=== PATIENT | female | born 2000 | race Caucasian/White ===

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

== ENCOUNTER → 2019-07-12 | Outpatient (REF) | payer OTHER ==
[~2019-07-12] MED LIST changes: +CIPR-249 PO; +CULT10CA2 PO; +FERR1TAB8 PO; +FLAG500T PO; -GASTROGRAFIN SOLUTION 30ML (Q9963) As Ordered; +IBUP200C25 PO; -ISOVUE-370 76% 100ML VIAL (Q9967) As Ordered; +OXYC1TAB23 PO; +PRED10TA2 PO; +PRED20TA PO; +PRED50TA PO; +TYLE325T5 PO; +VANC1CAP6 PO; +ZOFR4TAB14 PO
[2019-07-12 13:14] LABS: HEMATOCRIT 39.1 % (36.0-47.0); HEMOGLOBIN 12.5 g/dl (12.0-15.5); MEAN CORPUSCULAR HEMOGLOBIN 27.6 pg (27.0-33.0); MEAN CORPUSCULAR VOLUME 86.3 fl (80.0-96.0); PLATELET COUNT, AUTOMATED 357 10^3/uL (150-450); RED BLOOD COUNT 4.53 10^6/uL (4.00-5.40); WHITE BLOOD COUNT 9.6 10^3/uL (4.0-10.0)
[2019-07-12 14:34] LABS: HEPATITIS B SURFACE ANTIGEN NEGATIVE (NEGATIVE); HEPATITIS C VIRUS ABY INDEX 0.1 INDEX (<0.8); HIV 1&2 SCREEN CENTAUR NEGATIVE (NEGATIVE); RUBELLA IgG QUALITATIVE IMMUNE (IMMUNE)
[2019-07-12 14:50] LABS: CHLAMYDIA DNA AMPLIFICATION NEGATIVE (NEGATIVE); GC DNA AMPLIFICATION NEGATIVE (NEGATIVE)
== END ==
LOC: M PLALAB 11:36
PROVIDERS: ATTEND Specialist
DX: Z34.02 Encounter for supervision of normal first pregnancy, second trimester (principal)

== ENCOUNTER 2019-08-07 15:13 | Emergency (ER) | payer OTHER ==
[~2019-08-07] VITALS: Ht 157.5 cm; Wt 43.6 kg
[2019-08-07] MEDS ORDERED: AZAT50TA2 (15:20)
[2019-08-07] MEDS ORDERED: D 202000 (15:20)
[2019-08-07] MEDS ORDERED: PENT500C (15:20)
[2019-08-07] MEDS ORDERED: NS 1,000 ML IV ONE (16:00)
[2019-08-07 16:40] LABS: BASO % 0.2 % (0.0-1.0); EOS # 0.1 10^3/uL (0.0-0.5); EOS % 0.7 % (0.0-3.0); LYMPH % 9.6 % (24.0-44.0); MEAN CORPUSCULAR HEMOGLOBIN 27.2 pg (27.0-33.0); MEAN CORPUSCULAR HGB CONC 31.6 g/dl (32.0-36.5); MEAN CORPUSCULAR VOLUME 86.2 fl (80.0-96.0); MONO # 0.9 10^3/uL (0.0-0.8); MONO % 8.7 % (0.0-5.0); NEUTROPHILS # 8.6 10^3/uL (1.5-8.5); NEUTROPHILS % 80.5 % (36.0-66.0); PLATELET COUNT, AUTOMATED 301 10^3/uL (150-450); RED BLOOD COUNT 4.41 10^6/uL (4.00-5.40); WHITE BLOOD COUNT 10.7 10^3/uL (4.0-10.0)
[2019-08-07 16:59] LABS: ALBUMIN 3.2 GM/DL (3.2-5.2); ALT/SGPT 11 U/L (12-78); BILIRUBIN,DIRECT 0.1 MG/DL (0.0-0.2); BILIRUBIN,TOTAL 0.3 MG/DL (0.2-1.0); BLOOD UREA NITROGEN 7 MG/DL (7-18); C REACTIVE PROTEIN QUANTITATIV 1.49 MG/DL (0.00-0.30); CALCIUM LEVEL 8.3 MG/DL (8.5-10.1); CARBON DIOXIDE LEVEL 21 MEQ/L (21-32); CHLORIDE LEVEL 107 MEQ/L (98-107); CREATININE FOR GFR 0.45 MG/DL (0.55-1.30); GLOMERULAR FILTRATION RATE > 60.0 (>60); GLUCOSE, FASTING 72 MG/DL (70-100); LIPASE 147 U/L (73-393); POTASSIUM SERUM 4.1 MEQ/L (3.5-5.1); SODIUM LEVEL 135 MEQ/L (136-145); TOTAL PROTEIN 7.6 GM/DL (6.4-8.2)
[2019-08-07] MEDS ORDERED: MORPHINE 4 MG/ML 1ML VIAL/SYRINGE (J2270) IV ONE (17:00)
[2019-08-07] MEDS ORDERED: ONDANSETRON 4MG/2ML VIAL IV ONE (17:00)
[2019-08-07 17:22] LABS: ERYTHROCYTE SEDIMENTATION RATE 44 mm/hr (0-20)
[2019-08-07] MEDS ORDERED: predniSONE 20 MG TAB PO ONE (17:30)
[2019-08-07] MEDS ORDERED: PRED20TA PO (17:40)
[2019-08-07] MEDS ORDERED: ONDA4TAB6 PO (17:40)
[2019-08-07] MEDS ORDERED: NORC1TAB7 PO (17:47)
[2019-08-07 17:52] VITALS: BP 99/58
--- NOTE | 2019-08-07 17:56 | REPVR ---
PROCEDURE INFORMATION: Exam: US , Limited Exam date and time: 08/07/2019 5:40 PM Age: 19 years old Clinical indication: complicated by abdominal or pelvic pain; Left lower quadrant; Second trimester; Gestational age or lmp: 18; ; Additional info: Left abd pain, 18 wks, TECHNIQUE: Imaging protocol: Real-time ultrasound of the maternal uterus with image documentation. Exam focused on the clinical indication. COMPARISON: CT ABD/PEL W/IV CONTRAST ONLY 12/15/2017 8:54 AM FINDINGS: Gestation: Live single intrauterine gestation. Heart rate: heart rate is 147 bpm. Presentation: position is breech. Placenta: Placental position is anterior without placenta previa. MATERNAL: Cervix: Cervix measures 3.7 cm in length. It appears closed. Right adnexa: There is a minimal amount of free fluid in the right adnexal region. IMPRESSION: Live single intrauterine gestation. Placenta is grossly normal in appearance. Electronically signed by: Yumiko Schwab On 08/07/2019 17:56:23 PM
[2019-08-07] MEDS ORDERED: NORCO 5/325MG TABLET (BULK FOR ED) PO PRN (18:00)
[2019-08-07] MEDS ORDERED: NORCO, ANEXSIA 5/325MG TABLET (HYDROcodone/ACETAMINOPHEN) PO ONE (18:00)
[2019-08-07] MEDS: NORCO 5/325MG TABLET (BULK FOR ED) PO PRN ×2 (18:18→18:20)
== END 2019-08-07 18:26 | disposition home or self-care (01) ==
LOC: M ED 15:13
DX: O99.612 Diseases of the digestive system complicating pregnancy, second trimester (principal); K50.90 Crohn's disease, unspecified, without complications; Z3A.18 18 weeks gestation of pregnancy; Z79.899 Other long term (current) drug therapy
CPT/HCPCS: 76815; 80048; 80076; 83605; 83690; 85025; 85652; 86140; 96361; 96374; 96375; 99284; J2270; J2405

== ENCOUNTER → 2019-08-23 | Outpatient (CLI) | payer OTHER ==
[~2019-08-23] MED LIST changes: +AZAT50TA2; +D 202000; +NORC1TAB7 PO; +ONDA4TAB6 PO; +PENT500C; +TYLETAB14 PO
--- NOTE | 2019-08-23 16:51 | REP ---
REASON: anatomy. Multiple ultrasonographic images of the gravid uterus show a single living intrauterine gestation in the breech presentation. Doppler interrogation of the heart shows a heart rate of 155 beats per minute. The placenta is anterior and not low lying. The subjective amniotic fluid volume is within normal limits. The cervix measures 3.5 cm in length and is closed. Evaluation of the maternal adnexal spaces shows no abnormalities. BPD 4.5 cm = 19 weeks 4 days HC 16.7 cm = 19 weeks 3 days AC 14.1 cm = 19 weeks 4 days FL 2.9 cm = 19 weeks 0 days The estimated weight is 285 grams, which is less than the third percentile for a 21 week 0 day gestational age. anatomical structures seen as unremarkable are as follows: Thalami, cavum septum pellucidum, cerebellum, cisterna magna, cerebral ventricles, spine, kidneys, bladder, stomach, extremities, three-vessel umbilical cord, four-chamber heart, ventricular outflow tracts both right and left, and upper lip. Three-vessel umbilical cord was identified, however, the cord insertion was not optimally seen. The image shows it was taken on a bias. IMPRESSION: Single living intrauterine gestation, as described above, with an estimated gestational age of 19 weeks 1 day via composite criteria and an estimated date of delivery of 01/16/2020 by today's exam. No anomalies were detected, however, I recommend a followup examination to better assess growth and reevaluate the cord insertion site.
== END ==
LOC: M WHC 11:02
PROVIDERS: ATTEND Specialist
DX: Z34.82 Encounter for supervision of other normal pregnancy, second trimester (principal); Z3A.16 16 weeks gestation of pregnancy

== ENCOUNTER 2019-08-24 20:02 | Outpatient (CLI) | payer OTHER ==
[~2019-08-24] VITALS: Ht 157.5 cm; Wt 44.1 kg
[~2019-08-24 20:02] MED LIST changes: -TYLETAB14 PO
[2019-08-24 20:15] VITALS: BP 104/59
[2019-08-24] MEDS ORDERED: LACTATED RINGER'S 1000 ML IV STA (20:24)
[2019-08-24 21:07] LABS: HEMOGLOBIN 9.8 g/dl (12.0-15.5); MEAN CORPUSCULAR HEMOGLOBIN 26.7 pg (27.0-33.0); MEAN CORPUSCULAR HGB CONC 31.6 g/dl (32.0-36.5); MEAN CORPUSCULAR VOLUME 84.5 fl (80.0-96.0); PLATELET COUNT, AUTOMATED 275 10^3/uL (150-450); RED BLOOD COUNT 3.67 10^6/uL (4.00-5.40); WHITE BLOOD COUNT 11.6 10^3/uL (4.0-10.0)
[2019-08-24] MEDS: ONDANSETRON 4MG/2ML VIAL IV PRN (21:21)
[2019-08-24] MEDS: MORPHINE 4 MG/ML 1ML VIAL/SYRINGE (J2270) IV PRN ×2 (21:22→23:28)
[2019-08-24] MEDS: LR 1,000 ML IV SCH (21:22)
[2019-08-24 23:25] VITALS: BP 102/62
[2019-08-25 03:41] VITALS: BP 90/52
[2019-08-25] MEDS: MORPHINE 4 MG/ML 1ML VIAL/SYRINGE (J2270) IV PRN ×3 (03:48→13:29)
[2019-08-25 06:05] VITALS: BP 92/57
[2019-08-25] MEDS: LR 1,000 ML IV SCH (06:20)
[2019-08-25 07:13] LABS: HEMOGLOBIN 8.5 g/dl (12.0-15.5); MEAN CORPUSCULAR HEMOGLOBIN 27.1 pg (27.0-33.0); MEAN CORPUSCULAR HGB CONC 31.5 g/dl (32.0-36.5); PLATELET COUNT, AUTOMATED 221 10^3/uL (150-450); RED BLOOD COUNT 3.14 10^6/uL (4.00-5.40); WHITE BLOOD COUNT 8.1 10^3/uL (4.0-10.0)
[2019-08-25 07:46] LABS: ALBUMIN 2.2 GM/DL (3.2-5.2); ALT/SGPT 12 U/L (12-78); AMYLASE 72 U/L (25-115); BILIRUBIN,TOTAL 0.5 MG/DL (0.2-1.0); BLOOD UREA NITROGEN 3 MG/DL (7-18); CARBON DIOXIDE LEVEL 24 MEQ/L (21-32); CHLORIDE LEVEL 107 MEQ/L (98-107); CREATININE FOR GFR 0.44 MG/DL (0.55-1.30); GLOMERULAR FILTRATION RATE > 60.0 (>60); GLUCOSE, FASTING 70 MG/DL (70-100); LIPASE 96 U/L (73-393); MAGNESIUM LEVEL 1.8 MG/DL (1.8-2.4); POTASSIUM SERUM 3.5 MEQ/L (3.5-5.1); SODIUM LEVEL 138 MEQ/L (136-145); TOTAL PROTEIN 5.9 GM/DL (6.4-8.2)
--- NOTE | 2019-08-25 08:52 | IPNPDOC ---
Text Note Date of Service The patient was seen on 08/25/19. NOTE Consulted Leeann Carrion. Reviewed pt status. She recommended so lumedrol 60mg IV Q 8hrs to decrease symptoms. Once stable, may be discharged on prednisone 40mg PO daily, taper by 10mg weekly. Pt needs to f/u with Dr Meléndez. PNC referral initiated due to sono <3%. VS,Fishbone, I+O VS, Fishbone, I+O Laboratory Tests 08/24/19 20:58 08/25/19 07:03 Vital Signs Date Time Temp Pulse Resp B/P (MAP) Pulse Ox O2 Delivery O2 Flow Rate FiO2 08/25/19 08:28 18 08/25/19 06:05 98.3 86 92/57 (69) 08/25/19 03:48 Room Air I&O- Last 24 Hours up to 6 AM 08/25/19 05:59 Intake Total 1125 ml Balance 1125 ml Anyi Benjamin CNM Aug 25, 2019 08:52
[2019-08-25] MEDS ORDERED: FERROUS SULFATE 325MG TAB PO SCH (09:00)
[2019-08-25] MEDS ORDERED: methylPREDNISolone INJ 125 MG/2 ML VIAL (J2930) IV SCH (10:00)
[2019-08-25] MEDS: ONDANSETRON 4MG/2ML VIAL IV PRN (13:45)
--- NOTE | 2019-08-25 14:36 | IPNPDOC ---
Text Note Date of Service The patient was seen on 08/25/19. NOTE Pt feels improved after dose of solumedrol. Feels hungry and has tolerated regular diet. Desires discharge "sooner than later." Pt aware of prednisone Rx and taper. Also aware of pending PNC appt. She states she will call Rika to schedule appt. Keep appt at office for . VS,Fishbone, I+O VS, Fishbone, I+O Laboratory Tests 08/24/19 20:58 08/25/19 07:03 Vital Signs Date Time Temp Pulse Resp B/P (MAP) Pulse Ox O2 Delivery O2 Flow Rate FiO2 08/25/19 13:29 18 08/25/19 06:05 98.3 86 92/57 (69) 08/25/19 03:48 Room Air I&O- Last 24 Hours up to 6 AM 08/25/19 06:00 Intake Total 1812 ml Balance 1812 ml Anyi Benjamin CNM Aug 25, 2019 14:36
[2019-08-25] MEDS ORDERED: TYLETAB14 PO (17:34)
== END 2019-08-25 15:55 | disposition home or self-care (01) ==
LOC: M LDO 20:02
PROVIDERS: ATTEND Obstetrics & Gynecology
DX: O26.892 Other specified pregnancy related conditions, second trimester (principal); R10.10 Upper abdominal pain, unspecified; Z3A.21 21 weeks gestation of pregnancy
CPT/HCPCS: 36415; 80053; 82150; 83690; 83735; 85027; J2270; J2405; J2930

== ENCOUNTER 2019-09-03 15:40 | Emergency (ER) | payer OTHER ==
[~2019-09-03] VITALS: Ht 157.5 cm; Wt 45.5 kg
[~2019-09-03 15:40] MED LIST changes: -AZAT50TA2; +AZAT50TA2 PO; -D 202000; +D 202000 PO; -PENT500C; +PENT500C PO; +TYLETAB14 PO
[2019-09-03] MEDS ORDERED: PRED10TA2 (15:46)
[2019-09-03] MEDS ORDERED: NS 1,000 ML IV ONE (16:15)
[2019-09-03 16:29] LABS: BASO % 0.1 % (0.0-1.0); EOS % 0.1 % (0.0-3.0); HEMATOCRIT 32.3 % (36.0-47.0); LYMPH # 0.7 10^3/uL (1.5-5.0); LYMPH % 6.1 % (24.0-44.0); MEAN CORPUSCULAR HEMOGLOBIN 26.7 pg (27.0-33.0); MEAN CORPUSCULAR VOLUME 86.1 fl (80.0-96.0); MONO # 0.4 10^3/uL (0.0-0.8); MONO % 3.7 % (0.0-5.0); NEUTROPHILS # 9.8 10^3/uL (1.5-8.5); NEUTROPHILS % 88.8 % (36.0-66.0); PLATELET COUNT, AUTOMATED 226 10^3/uL (150-450); RED BLOOD COUNT 3.75 10^6/uL (4.00-5.40)
[2019-09-03 16:52] LABS: ALBUMIN 2.9 GM/DL (3.2-5.2); BILIRUBIN,DIRECT 0.1 MG/DL (0.0-0.2); BILIRUBIN,TOTAL 0.2 MG/DL (0.2-1.0); TOTAL PROTEIN 7.2 GM/DL (6.4-8.2)
[2019-09-03 17:04] LABS: ERYTHROCYTE SEDIMENTATION RATE 55 mm/hr (0-20)
[2019-09-03] MEDS ORDERED: MORPHINE 2 MG/ML 1ML VIAL (J2270) IV ONE ×3 (17:30→21:15)
[2019-09-03 19:00] VITALS: BP 106/58
--- NOTE | 2019-09-03 20:46 | REPVR ---
PROCEDURE INFORMATION: Exam: US Abdomen Limited, Other. Exam date and time: 09/03/2019 8:37 PM Age: 19 years old Clinical indication: Abdominal pain; Generalized; ; Additional info: Ruq/luq pain HX of crohns 22wk TECHNIQUE: Imaging protocol: Real-time ultrasound of the abdomen with image documentation. Examination is focused on the region of clinical interest. COMPARISON: CT ABD/PEL W/IV CONTRAST ONLY 12/15/2017 8:54 AM FINDINGS: Examination is significantly limited by extensive overlying bowel gas. Gallbladder appears within normal limits. Suspect small volume of ascites. No gross loculated fluid collection. Intrauterine gestation is visualized. IMPRESSION: 1. Examination is significantly limited by extensive overlying bowel gas. 2. Suspect small volume of ascites. 3. No gross loculated fluid collection. Electronically signed by: Brandin Clement On 09/03/2019 20:45:44 PM
[2019-09-03] MEDS ORDERED: MIRA3350 PO (21:04)
[2019-09-03] MEDS ORDERED: PRED20TA PO (21:04)
[2019-09-03] MEDS ORDERED: SIME80TA PO (21:04)
== END 2019-09-03 21:47 | disposition home or self-care (01) ==
LOC: M ED 15:40
DX: O99.612 Diseases of the digestive system complicating pregnancy, second trimester (principal); K50.90 Crohn's disease, unspecified, without complications; R14.1 Gas pain; K59.00 Constipation, unspecified; Z79.899 Other long term (current) drug therapy; Z79.52 Long term (current) use of systemic steroids; Z3A.22 22 weeks gestation of pregnancy
CPT/HCPCS: 36415; 76705; 80047; 80076; 81001; 83690; 85025; 85652; 86140; 86901; 87086; 96361; 96374; 96376; 99284; J2270

== ENCOUNTER → 2019-09-12 | Outpatient (CLI) | payer OTHER ==
[~2019-09-12] MED LIST changes: +AZAT50TA2; -AZAT50TA2 PO; +D 202000; -D 202000 PO; +MIRA3350 PO; +PENT500C; -PENT500C PO; +PRED10TA2; +SIME80TA PO
--- NOTE | 2019-09-13 01:44 | REP ---
REASON: Re-evaluate growth. Multiple ultrasonographic images of the gravid uterus show a single living intrauterine gestation in the cephalic presentation. Doppler interrogation of the heart shows a heart rate of 149 beats per minute. The placenta is anterior and not low lying. The subjective amniotic fluid volume is within normal limits. The cervix measures 3.4 cm in length and is closed. Evaluation of the maternal adnexal spaces showed no abnormalities. CHART: BPD 5 cm = 21 weeks 2 days HC 19.7 cm = 21 weeks 6 days AC 17.7 cm = 22 weeks 4 days FL 3.6 cm = 21 weeks 3 days The estimated weight is 469 grams, which is less than the 3rd percent shanelle for a 23-week 6-day gestational age. Full anatomical screen was performed on prior exams. IMPRESSION: Single living intrauterine gestation, as described above, with an estimated gestational age of 21 weeks 4 days via composite criteria and an estimated date of delivery of 01/19/2020 by today's exam.
== END ==
LOC: M WHC 12:59
PROVIDERS: ATTEND Advanced Practice Midwife
DX: Z34.92 Encounter for supervision of normal pregnancy, unspecified, second trimester (principal); Z36.89 Encounter for other specified antenatal screening; Z3A.21 21 weeks gestation of pregnancy

== ENCOUNTER → 2019-09-12 | Outpatient (CLI) | payer OTHER | LOC: M PLALAB 13:33 | PROVIDERS: ATTEND Advanced Practice Midwife | DX: Z34.82 Encounter for supervision of other normal pregnancy, second trimester (principal); Z36.89 Encounter for other specified antenatal screening ==

== ENCOUNTER → 2019-10-11 | Outpatient (REF) | payer OTHER ==
[~2019-10-11] MED LIST changes: +ACET-683 PO; -AZAT50TA2; +AZAT50TA2 PO; -D 202000; +D 202000 PO; +DICY1CAP8 PO; +DOCU100C16 PO; +HYDR-3715 PO; +IBUP80TA PO; +KEFL500C17 PO; -PENT500C; +PENT500C PO; +PRED1TABL PO; +PRENTAB9 PO
[2019-10-11 15:10] LABS: HEMOGLOBIN 9.6 g/dl (12.0-15.5); MEAN CORPUSCULAR HEMOGLOBIN 25.7 pg (27.0-33.0); MEAN CORPUSCULAR VOLUME 85.6 fl (80.0-96.0); PLATELET COUNT, AUTOMATED 324 10^3/uL (150-450); RED BLOOD COUNT 3.74 10^6/uL (4.00-5.40); WHITE BLOOD COUNT 12.8 10^3/uL (4.0-10.0)
== END ==
LOC: M PLALAB 12:25
PROVIDERS: ATTEND Advanced Practice Midwife
DX: Z36.9 Encounter for antenatal screening, unspecified (principal)

== ENCOUNTER → 2019-10-19 | Outpatient (CLI) | payer OTHER | LOC: M WHC 10:12 | PROVIDERS: ATTEND Advanced Practice Midwife | DX: O32.1XX0 Maternal care for breech presentation, not applicable or unspecified (principal); Z3A.29 29 weeks gestation of pregnancy ==

== ENCOUNTER → 2019-10-25 | Outpatient (CLI) | payer OTHER | LOC: M WHC 17:38 | PROVIDERS: ATTEND Advanced Practice Midwife | DX: Z34.80 Encounter for supervision of other normal pregnancy, unspecified trimester (principal); Z3A.00 Weeks of gestation of pregnancy not specified ==

== ENCOUNTER → 2019-11-01 | Outpatient (CLI) | payer OTHER ==
--- NOTE | 2019-12-12 09:46 | REP ---
OBSTETRIC ULTRASOUND FOR GROWTH AND UMBILICAL ARTERY DOPPLER ASSESSMENT Delay in reporting results from hospital conputer system malfunction from malware / ransomeware. FINDINGS: There is a single intrauterine gestation in a cephalic presentation. The placenta is anterior with grade 2 maturity. There is no previa. There is no abruptio. heart rate is 156 beats per minute. Amniotic fluid volume subjectively is normal. The amniotic fluid index is 16.47. BIOPHYSICAL PROFILE: motion 2 breathing 2 tone 2 Amniotic fluid 2 Total Score 10/27 Estimated gestational age by [facility] ultrasound is 31 weeks 0 days. Estimated date of confinement (EDC) is 01/17/2020. Estimated weight is 1559 grams.. This is the 2nd percentile. S/D ratio of the umbilical artery is 2.4. The resistive index of the umbilical artery is 0.59. No further evaluation is requested or performed at this time. [facility]
== END ==
LOC: M WHC 16:52
PROVIDERS: ATTEND Advanced Practice Midwife
DX: Z34.83 Encounter for supervision of other normal pregnancy, third trimester (principal); Z3A.29 29 weeks gestation of pregnancy

== ENCOUNTER → 2019-11-08 | Outpatient (CLI) | payer OTHER ==
--- NOTE | 2019-11-16 16:42 | REP ---
OBSTETRIC ULTRASOUND: HISTORY: For growth, BPP and umbilical artery Doppler assessment. FINDINGS: There is a single intrauterine gestation in a breech presentation. The placenta is anterior, grade 1 without previa and without abruptio. The amniotic fluid index subjectively is normal. BIOPHYSICAL PROFILE motion 2.0 breathing 2.0 tone 2.0 Amniotic fluid volume 2.0 TOTAL 8/8 The cervix measures 3.6 cm in length. BIOMETRY CHART: BPD 68 mm 27 weeks 3 days Head circumference 253 mm 27 weeks 4 days Abdominal circumference 225 mm 27 weeks 0 days Femur length 47 mm 26 weeks 4 days Humeral length 42 mm 25 weeks 5 days The composite gestational age is not calculated by the computer. heart rate is 129 beats per minute. The umbilical artery Doppler assessment S/D ratio is 3.0. The resistive index is 0.67. ANTONIETA is 01/03/20 for a gestational age of 29 weeks 1 day. The gestational age is based on LMP of 03/29/19. MTDD
== END ==
LOC: M WHC 10:27
PROVIDERS: ATTEND Advanced Practice Midwife
DX: O32.1XX0 Maternal care for breech presentation, not applicable or unspecified (principal); Z3A.29 29 weeks gestation of pregnancy

== ENCOUNTER → 2019-11-15 | Outpatient (CLI) | payer OTHER ==
--- NOTE | 2019-11-22 13:18 | REP ---
LIMITED OBSTETRICAL ULTRASOUND CLINICAL: wellbeing. TECHNIQUE: Real-time harrington scale transabdominal obstetrical ultrasound with color Doppler evaluation. COMPARISON: 11/08/2019. FINDINGS: Ultrasound examination demonstrates a single live advanced gestation in cephalic presentation. motion was identified by the technologist. Placenta is noted anteriorly, grade 2, and without placenta previa or abruption. Amniotic fluid volume is upper limits of normal. SHERRY equals 16.5 cm. Cervix measures 2.8 cm in length and appears closed. heart rate equals 156 beats per minute. Gestational age by current measurements 31 weeks 0 days with estimated date of delivery 01/17/2020. Estimated weight 1559 grams (less than 2nd percentile based on age by last menstrual period (LMP). Umbilical S/D ratio: 2.5. Biophysical profile score: 8 out of 8. IMPRESSION: 1. Single live intrauterine in cephalic presentation. 2. Estimated weight on current examination is below 2nd percentile based on age by last menstrual period (LMP). 3. Biophysical profile score 8 out of 8. 4. Amniotic fluid volume 16.5 cm. MTDD
== END ==
LOC: M WHC 09:48
PROVIDERS: ATTEND Advanced Practice Midwife
DX: Z36.89 Encounter for other specified antenatal screening (principal); Z3A.31 31 weeks gestation of pregnancy

== ENCOUNTER → 2019-11-21 | Outpatient (CLI) | payer OTHER ==
--- NOTE | 2019-12-19 13:26 | REP ---
OBSTETRICAL ULTRASOUND BIOPHYSICAL PROFILE HISTORY: Biophysical profile. FINDINGS: Real-time sonographic evaluation of gravid uterus performed. There is a single living intrauterine gestation. Estimated gestational age based on LMP is reportedly 33 weeks 1 day. position cephalic. Placenta anterior and grade 2 with no previa or abruption. The three vessel cord, stomach, kidneys, and bladder are visualized and are grossly unremarkable. heart rate is 165 beats per minute. Amniotic fluid appears within normal limits. SHERRY is 11.5. Biophysical profile score is 8/8. Cervix is closed and measures 3.2 cm in length. S/D ratio mid umbilical artery is 2.6. MTDD
== END ==
LOC: M WHC 10:55
PROVIDERS: ATTEND Advanced Practice Midwife
DX: Z34.80 Encounter for supervision of other normal pregnancy, unspecified trimester (principal)

== ENCOUNTER 2019-11-23 04:33 | Inpatient (IN) | payer OTHER ==
[2019-11-23] VITALS (9 sets, daily range): BP systolic 93–106; BP diastolic 51–64
[~2019-11-23 04:33] MED LIST changes: -ACET-683 PO; -DICY1CAP8 PO; -DOCU100C16 PO; -HYDR-3715 PO; -IBUP80TA PO; -KEFL500C17 PO; -PRED1TABL PO; -PRENTAB9 PO
[2019-11-23] MEDS ORDERED: LACTATED RINGER'S 1000 ML IV ONE (06:15)
[2019-11-23] MEDS ORDERED: ONDANSETRON 4MG/2ML VIAL IV PRN (06:15)
[2019-11-23] MEDS ORDERED: MORPHINE 4 MG/ML 1ML VIAL/SYRINGE (J2270) IV PRN ×2 (06:15→11:45)
[2019-11-23 06:36] LABS: BASO % 0.2 % (0.0-1.0); EOS % 0.3 % (0.0-3.0); HEMATOCRIT 27.3 % (36.0-47.0); HEMOGLOBIN 8.1 g/dl (12.0-15.5); LYMPH # 1.1 10^3/uL (1.5-5.0); LYMPH % 8.8 % (24.0-44.0); MEAN CORPUSCULAR HEMOGLOBIN 23.5 pg (27.0-33.0); MEAN CORPUSCULAR HGB CONC 29.7 g/dl (32.0-36.5); MEAN CORPUSCULAR VOLUME 79.1 fl (80.0-96.0); MONO # 1.3 10^3/uL (0.0-0.8); MONO % 10.6 % (0.0-5.0); NEUTROPHILS # 9.7 10^3/uL (1.5-8.5); NEUTROPHILS % 79.5 % (36.0-66.0); PLATELET COUNT, AUTOMATED 258 10^3/uL (150-450); RED BLOOD COUNT 3.45 10^6/uL (4.00-5.40); WHITE BLOOD COUNT 12.2 10^3/uL (4.0-10.0)
[2019-11-23] MEDS: LR 1,000 ML IV SCH ×2 (06:50→14:55)
[2019-11-23] MEDS: methylPREDNISolone 125MG 2ML VIAL IV SCH ×3 (07:05→22:19)
[2019-11-23] MEDS ORDERED: NS 1,000 ML IV SCH (08:10)
[2019-11-23 09:25] LABS: BLOOD UREA NITROGEN 6 MG/DL (7-18); CREATININE FOR GFR 0.41 MG/DL (0.55-1.30); GLUCOSE, FASTING 94 MG/DL (70-100)
[2019-11-23 09:26] LABS: ALBUMIN 2.5 GM/DL (3.2-5.2); ALT/SGPT 9 U/L (12-78); BILIRUBIN,TOTAL 0.4 MG/DL (0.2-1.0); CARBON DIOXIDE LEVEL 22 MEQ/L (21-32); CHLORIDE LEVEL 107 MEQ/L (98-107); GLOMERULAR FILTRATION RATE > 60.0 (>60); POTASSIUM SERUM 3.9 MEQ/L (3.5-5.1); SODIUM LEVEL 138 MEQ/L (136-145); TOTAL PROTEIN 6.2 GM/DL (6.4-8.2)
--- NOTE | 2019-11-23 11:24 | CR.PDOC ---
General Date of Consultation: Nov 23, 2019 Attending Physician: PHANI FRANCIS MD Consultation REASON FOR CONSULTATION/CHIEF COMPLAINT: epigastric abdominal pain/Crohn's flare Hospitalist service consulted for assistance in management of Crohn's flarbibi HISTORY OF PRESENT ILLNESS: 19 yo F at 34 weeks gestation, with a hx of Crohn's Disease (Dx 2018), admitted to OBGYN service with acute epigastric abdominal pain secondary to Crohn's flare. She has had approximately 5 flares per year since her diagnosis. She follows with Dr. Meléndez (GI) in [place], last seen 08/2019. She takes azathioprine, mesalamine for maintenance. She denies n/v/d, blood per rectum, fevers or chills. ALLERGIES: Please see below. HOME MEDICATIONS: Please see below. PAST MEDICAL HISTORY: 1. Crohn's disease PAST SURGICAL HISTORY: FAMILY HISTORY: non contributory SOCIAL HISTORY: non smoker non drinker denies illicits REVIEW OF SYSTEMS: CONSTITUTIONAL: none HEENT: none. CARDIOVASCULAR: none. RESPIRATORY: none. GENITOURINARY: none. MUSCULOSKELETAL: none. GASTROINTESTINAL: 09/28 epigastric abdominal pain SKIN: none. NEUROLOGICAL: none. PSYCHIATRIC: none. ENDOCRINE: . HEMATOLOGIC/LYMPHATIC: . ALLERGIC/IMMUNOLOGIC: . PHYSICAL EXAMINATION: VITAL SIGNS: Please see below. GENERAL APPEARANCE: NAD HEENT: PERRLA, EOMI. RESPIRATORY: lungs CTAB. CARDIOVASCULAR: RRR, normal S1, s2. ABDOMEN: gravid, epigastric pain to palpation, no rigidity, no reboud. EXTREMITIES: no joint deformity, no edema. NEUROLOGICAL: no focal neuro deficits. PSYCHIATRIC: calm, cooperative, aao x 3. LABORATORY DATA: Please see below. ASSESSMENT/PLAN: 1. Acute Crohn's flare: continue with solumedrol 60 mg q8h IV, followed by prednisone 40 mg PO daily for 1 week followed by a 2 week taper. Recommend PO pain control with norco 5/325 mg q8h prn for severe pain (with judicious use). Morphine 2 mg IV prn q4h prn for breakthrough. Tylenol 650 mg PO q6h prn for moderate pain. I spoke to Dr. Meléndez in [place], she will follow up with amaury karimi in 1-2 weeks after discharge. She plans on starting patient on biologic therapy after her delivery. 2. Nausea: zofran Rest per primary OB service. Thank you very much for involving me in the care. Please re-consult if required. Vital Signs/I&O Vital Signs Date Time Temp Pulse Resp B/P (MAP) Pulse Ox O2 Delivery O2 Flow Rate FiO2 11/23/19 11:00 98.6 95 18 106/64 Room Air 97 11/23/19 10:41 96 Laboratory Data Labs 24H Laboratory Tests 2 11/23/19 06:24: Immature Granulocyte % (Auto) 0.6, Neutrophils (%) (Auto) 79.5H, Lymphocytes (%) (Auto) 8.8L, Monocytes (%) (Auto) 10.6H, Eosinophils (%) (Auto) 0.3, Basophils (%) (Auto) 0.2, Neutrophils # (Auto) 9.7H, Lymphocytes # (Auto) 1.1L, Monocytes # (Auto) 1.3H, Eosinophils # (Auto) 0.0, Basophils # (Auto) 0.0, Nucleated Red Blood Cells % (auto) 0.0 11/23/19 08:34: Serology Scanned Report Hepatitis B Testing 11/23/19 08:37: Anion Gap 9, Glomerular Filtration Rate > 60.0, Calcium Level 8.0L, Total Bilirubin 0.4, Aspartate Amino Transf (AST/SGOT) 14, Alanine Aminotransferase (ALT/SGPT) 9L, Alkaline Phosphatase 100, Total Protein 6.2L, Albumin 2.5L, Albumin/Globulin Ratio 0.7L CBC/BMP Laboratory Tests 11/23/19 06:24 11/23/19 08:37 Allergies Coded Allergies: POLLEN (Verified Allergy, Unknown, 05/09/17) Home Medications Scheduled Ferrous Sulfate (Ferrous Sulfate) 325 Mg Tab, 325 MG PO BID, #60 Prednisone (Prednisone) 20 Mg Tablet, 60 MG PO DAILY for 3 Days, #30 Simethicone (Simethicone) 80 Mg Tab.chew, 1-2 TAB PO TID for gas for 6 Days, #40 Scheduled PRN Acetaminophen with Codeine (Tylenol with Codeine #3 Tablet) 1 Each Tablet, 1 TAB PO Q6HP PRN for pain for 7 Days, #30 Polyethylene Glycol 3350 (Miralax) 119 Gm Powder, 17 GM PO DAILY PRN for CONSTIPATION, #1 dilute in 8 ounces of water or juice Miscellaneous Medications Azathioprine (Azathioprine) 50 Mg Tablet, (Reported) Cholecalciferol (Vitamin D3) (Vitamin D3) 50 Mcg Tablet, (Reported) Mesalamine (Pentasa) 500 Mg Capsule.er, (Reported) Prednisone (Prednisone) 10 Mg Tablet, (Reported) PHANI FRANCIS MD Nov 23, 2019 11:24
[2019-11-23] MEDS ORDERED: ACETAMINOPHEN TAB 650MG DOSE (2X325MG) PO PRN (11:45)
[2019-11-23] MEDS ORDERED: NORCO, ANEXSIA 5/325MG TABLET (HYDROcodone/ACETAMINOPHEN) PO PRN ×2 (11:45→15:45)
[2019-11-23] MEDS: MORPHINE 2 MG/ML 1ML VIAL (J2270) IV PRN ×2 (18:08→21:53)
[2019-11-24 05:29] VITALS: BP 105/57
[2019-11-24] MEDS: methylPREDNISolone 125MG 2ML VIAL IV SCH ×2 (06:38→14:09)
--- NOTE | 2019-11-24 08:14 | IPNPDOC ---
Date Seen The patient was seen on 11/24/19. Progress Note SUBJECTIVE: patient seen and examined at bedside. Doing much better this morning. Pain improved to ~3/10, tolerated breakfast. Denies fevers, chills, n/v/d. OBJECTIVE PHYSICAL EXAMINATION: VITAL SIGNS: Please see below. GENERAL APPEARANCE: NAD HEENT: PERRLA, EOMI. RESPIRATORY: lungs CTAB. CARDIOVASCULAR: RRR, normal S1, s2. ABDOMEN: gravid, no pain to palpation, no rigidity, no rebound. EXTREMITIES: no joint deformity, no edema. NEUROLOGICAL: no focal neuro deficits. PSYCHIATRIC: calm, cooperative, aao x 3. LABORATORY DATA, IMAGING STUDIES, MICROBIOLOGY: Please see below. DVT prophylaxis ordered?: y ASSESSMENT/PLAN: 1. Acute Crohn's flare: continue with solumedrol 60 mg q8h IV, followed by prednisone 40 mg PO daily for 1 week followed by a 2 week taper. Recommend PO pain control with norco 5/325 mg q8h prn for severe pain (with judicious use). Spoke to Dr. Willard, agree with weaning off IV analgesia. Tylenol 650 mg PO q6h prn for moderate pain. Add bentyl prn. I spoke to Dr. Meléndez in [place], she will follow up with patient in 1-2 weeks after discharge. She plans on starting patient on biologic therapy after her delivery. 2. Nausea: zofran VS, I&O, 24H, Fishbone Vital Signs/I&O Vital Signs Date Time Temp Pulse Resp B/P (MAP) Pulse Ox O2 Delivery O2 Flow Rate FiO2 11/24/19 05:29 97.9 95 18 105/57 (73) 11/24/19 04:49 Room Air 11/23/19 14:48 98 11/23/19 12:05 99 I&O- Last 24 Hours up to 6 AM 11/24/19 06:00 Intake Total 2720 ml Output Total 800 ml Balance 1920 ml Laboratory Data 24H LABS Laboratory Tests 2 11/23/19 08:34: Serology Scanned Report Hepatitis B Testing 11/23/19 08:37: Anion Gap 9, Glomerular Filtration Rate > 60.0, Calcium Level 8.0L, Total B ilirubin 0.4, Aspartate Amino Transf (AST/SGOT) 14, Alanine Aminotransferase (ALT/SGPT) 9L, Alkaline Phosphatase 100, Total Protein 6.2L, Albumin 2.5L, Albumin/Globulin Ratio 0.7L CBC/BMP Laboratory Tests 11/23/19 08:37 PHANI FRANCIS MD Nov 24, 2019 08:14
[2019-11-24 08:39] LABS: HEMATOCRIT 29.6 % (36.0-47.0); HEMOGLOBIN 8.9 g/dl (12.0-15.5); MEAN CORPUSCULAR HEMOGLOBIN 24.2 pg (27.0-33.0); MEAN CORPUSCULAR HGB CONC 30.1 g/dl (32.0-36.5); MEAN CORPUSCULAR VOLUME 80.4 fl (80.0-96.0); PLATELET COUNT, AUTOMATED 255 10^3/uL (150-450); RED BLOOD COUNT 3.68 10^6/uL (4.00-5.40); WHITE BLOOD COUNT 8.8 10^3/uL (4.0-10.0)
[2019-11-24] MEDS ORDERED: FERROUS SULFATE 325MG TAB PO SCH (09:00)
[2019-11-24] MEDS ORDERED: PRENATAL VITAMINS CHEWABLE TABLET PO SCH (09:00)
[2019-11-24] MEDS ORDERED: DICYCLOMINE 10 MG CAP PO PRN (09:00)
[2019-11-24] MEDS ORDERED: azaTHIOprine 50 MG TAB (J7500) PO SCH ×2 (09:00→15:45)
[2019-11-24] MEDS ORDERED: VITAMIN D 1,000 INTERNATIONAL UNITS TABLET PO SCH (09:00)
[2019-11-24] MEDS ORDERED: DOCUSATE SODIUM 100 MG CAP PO ONE (14:00)
[2019-11-24] MEDS ORDERED: MESALAMINE 250 MG CR CAP PO SCH (14:00)
[2019-11-24 18:00] VITALS: BP 102/57
[2019-11-24] MEDS ORDERED: HYDR-3715 PO (20:16)
[2019-11-24] MEDS ORDERED: DICY1CAP8 PO (20:16)
--- NOTE | 2019-11-24 20:36 | DS.PDOC ---
Discharge Summary General Date of Admission Nov 23, 2019 at 08:25 Date of Discharge 11/24/2019 Discharge Summary PROCEDURES PERFORMED DURING STAY: None ADMITTING DIAGNOSES: 1. Crohn's disease flare 2. Intrauterine at 34 weeks gestation DISCHARGE DIAGNOSES: 1. Crohn's disease. 2. Intrauterine at 34 weeks, reassuring status COMPLICATIONS/CHIEF COMPLAINT: Crohns. HISTORY OF PRESENT ILLNESS: admitted with complaints of upper abdominal pain starting 11/22/2019. HOSPITAL COURSE: Ms Rosales has been seen in consultation by the hospitalist service. She has been started on bentyl for spasm control. She has received IV solumedrol. She reports her symptoms are markedly improved and desires discharge tonight. DISCHARGE MEDICATIONS: Please see below. ALLERGIES: Please see below. PHYSICAL EXAMINATION ON DISCHARGE: VITAL SIGNS: Please see below. GENERAL: No distress HEENT: WNL NECK: Supple CARDIOVASCULAR EXAMINATION: HRR, normotensive RESPIRATORY EXAMINATION: Clear and unlabored ABDOMINAL EXAMINATION: Gravid EXTREMITIES: Equal strength and motion SKIN: Intact NEUROLOGICAL EXAMINATION: Grossly intact PSYCHIATRIC EXAMINATION: Appropriate LABORATORY DATA: Please see below. PROGNOSIS: Good ACTIVITY: As tolerated DIET: As tolerated DISCHARGE PLAN: Prednisone taper as recommended by hospitalist. Rx written. Bentyl prn for spasms. Continue at home medications. DISPOSITION: Home. DISCHARGE INSTRUCTIONS: 1. Continue medications as directed 2. F/U at [facility] as previously scheduled 3. Make appt to see Dr Tang in 1-2 wks DISCHARGE CONDITION: Stable. TIME SPENT ON DISCHARGE: Greater than 10 minutes. Vital Signs/I&Os Vital Signs Date Time Temp Pulse Resp B/P (MAP) Pulse Ox O2 Delivery O2 Flow Rate FiO2 11/24/19 18:00 98.1 100 18 102/57 (72) 97 Room Air 11/23/19 12:05 99 I&O- Last 24 Hours up to 6 AM 11/24/19 06:00 Intake Total 2720 ml Output Total 800 ml Balance 1920 ml Laboratory Data Labs 24H Laboratory Tests 2 11/24/19 07:36: Nucleated Red Blood Cells % (auto) 0.0 CBC/BMP Laboratory Tests 11/24/19 07:36 Discharge Medications Scheduled Ferrous Sulfate (Ferrous Sulfate) 325 Mg Tab, 325 MG PO BID Simethicone (Simethicone) 80 Mg Tab.chew, 1-2 TAB PO TID for gas Scheduled PRN Dicyclomine HCl (Dicyclomine HCl) 10 Mg Capsule, 10 MG PO BID PRN for ABDOMINAL PAIN Hydrocodone/Acetaminophen (Hydrocodone-Acetamin 5-325 mg) 1 Each Tablet, 1 TAB PO Q4HP PRN for MILD/MODERATE PAIN (PS 1-7) Polyethylene Glycol 3350 (Miralax) 119 Gm Powder, 17 GM PO DAILY PRN for CONSTIPATION dilute in 8 ounces of water or juice Miscellaneous Medications Azathioprine (Azathioprine) 50 Mg Tablet, (Reported) Cholecalciferol (Vitamin D3) (Vitamin D3) 50 Mcg Tablet, (Reported) Mesalamine (Pentasa) 500 Mg Capsule.er, (Reported) Allergies Coded Allergies: POLLEN (Verified Allergy, Unknown, 05/09/17) Anyi Benjamin CNM Nov 24, 2019 20:36
== END 2019-11-24 20:57 | disposition home or self-care (01) | DRG 566 ==
LOC: M LDO 04:33 → M LDI 08:25 → M OBS 15:58
PROVIDERS: ADMIT Specialist; ATTEND Specialist
PROC: 30233N1 Transfusion of Nonautologous Red Blood Cells into Peripheral Vein, Percutaneous Approach (ICD-10-PCS; principal; 2019-11-23)
DX: O99.613 Diseases of the digestive system complicating pregnancy, third trimester (principal); K50.90 Crohn's disease, unspecified, without complications; Z3A.34 34 weeks gestation of pregnancy; J30.1 Allergic rhinitis due to pollen; O99.513 Diseases of the respiratory system complicating pregnancy, third trimester; Z79.52 Long term (current) use of systemic steroids

== ENCOUNTER → 2019-11-28 | Outpatient (CLI) | payer OTHER ==
[~2019-11-28] MED LIST changes: +ACET-683 PO; +DICY1CAP8 PO; +DOCU100C16 PO; +HYDR-3715 PO; +IBUP80TA PO; +KEFL500C17 PO; +PRED1TABL PO; +PRENTAB9 PO
--- NOTE | 2019-12-19 13:37 | REP ---
LIMITED OBSTETRICAL ULTRASOUND FOR BIOPHYSICAL PROFILE CLINICAL: wellbeing. COMPARISON: 11/21/2019. TECHNIQUE: Real-time harrington scale and color Doppler evaluation using curved array transducer. FINDINGS: Ultrasound examination demonstrates single live intrauterine in cephalic presentation. motion identified by technologist. Placenta is noted anteriorly and grade 2 without placenta previa or abruption or abruption. Amniotic fluid volume is normal. Amniotic fluid index (SHERRY) equals 10.8 cm. Cervix measures 2.9 cm in length and appears closed. heart rate equals 169 beats per minute. Umbilical cord S/D ratio equals 1.8. Amniotic fluid index (SHERRY) equals 10.8 cm. Biophysical profile score equals 8/8. IMPRESSION: Single live intrauterine in cephalic presentation. Amniotic fluid volume normal. Biophysical profile score equals 8/8. MTDD
== END ==
LOC: M WHC 10:05
PROVIDERS: ATTEND Advanced Practice Midwife
DX: O36.5990 Maternal care for other known or suspected poor fetal growth, unspecified trimester, not applicable or unspecified (principal); Z3A.00 Weeks of gestation of pregnancy not specified

== ENCOUNTER → 2019-11-30 | Outpatient (REF) | payer OTHER | LOC: M SFHCWAGY 17:48 | PROVIDERS: ATTEND Advanced Practice Midwife | DX: O36.5110 Maternal care for known or suspected placental insufficiency, first trimester, not applicable or unspecified (principal) ==

== ENCOUNTER → 2019-12-01 | Outpatient (CLI) | payer OTHER ==
--- NOTE | 2019-12-21 08:12 | REP ---
LIMITED OBSTETRICAL ULTRASOUND FOR BIOPHYSICAL PROFILE CLINICAL: wellbeing. TECHNIQUE: Transabdominal obstetric ultrasound with color Doppler evaluation. FINDINGS: Ultrasound examination demonstrates single live advanced gestation in cephalic presentation. Placenta noted anteriorly and grade 2 without evidence for placenta previa or abruption. Amniotic fluid volume is normal. Cervix measures 3.1 cm in length and appears closed. Gestational age by last menstrual period (LMP) 35 weeks 2 days with estimated date of delivery 01/03/2020. Gestational age by current measurements 32 weeks 5 days with estimated date of delivery 01/21/2020. heart rate 150 beats per minute. Amniotic fluid index (SHERRY) 10.5 cm. MEASUREMENTS: BPD 8.4 cm 33 weeks 5 days HC 30.1 cm 33 weeks 3 days AC 29.5 cm 33 weeks 3 days FL 6.1 cm 31 weeks 3 days HL 5.4 cm 31 weeks 3 days HC/AC ratio 1.02 Estimated weight 2071 g (18th percentile) Biophysical profile score equals 8/8. Umbilical cord S/D ratio: 2.1 (mid cord); 2.4 (placenta insertion); 2.0 ( insertion). IMPRESSION: Single live advanced gestation in cephalic presentation. Estimated weight and growth is within normal limits as described above. Biophysical profile score equals 8/8. Amniotic fluid volume and S/D ratios are normal. MTDD
== END ==
LOC: M WHC 08:45
PROVIDERS: ATTEND Advanced Practice Midwife
DX: Z34.83 Encounter for supervision of other normal pregnancy, third trimester (principal); Z3A.32 32 weeks gestation of pregnancy

== ENCOUNTER 2019-12-04 08:24 | Inpatient (IN) | payer OTHER ==
[2019-12-04] VITALS (13 sets, daily range): BP systolic 75–116; BP diastolic 37–70
[~2019-12-04] VITALS: Ht 157.5 cm; Wt 51.5 kg
[~2019-12-04 08:24] MED LIST changes: -ACET-683 PO; -DOCU100C16 PO; -IBUP80TA PO; -KEFL500C17 PO; -PRED1TABL PO; -PRENTAB9 PO
[2019-12-04] MEDS ORDERED: DOCU100C16 PO (08:45)
[2019-12-04] MEDS ORDERED: PRED1TABL PO (08:45)
[2019-12-04] MEDS ORDERED: PRENTAB9 PO (08:45)
[2019-12-04] MEDS ORDERED: ONDANSETRON 4MG/2ML VIAL As Ordered ONE (09:24)
[2019-12-04] MEDS ORDERED: LR 1,000 ML IV ONE (09:30)
[2019-12-04] MEDS: ONDANSETRON 4MG/2ML VIAL IV SCH ×4 (09:32→23:02)
--- NOTE | 2019-12-04 09:35 | IPNPDOC ---
Text Note Date of Service The patient was seen on 12/04/19. NOTE Subjective: Tg is a 19-year-old female who is a at 35.5 weeks gestation with an ANTONIETA of 01/03/20 who presents to L&D with complaints of round ligament pain in the front of her abdomen and runs to her back. that is painful, coming and going, and making it unable for her to sleep. She states she just doesn't feel good. She has taken Tylenol without relief. Her has been complicated by Crohn's and she is currently doing a prednisone taper. She has had multiple doses of steroids during her . Her has also been complicated by IUGR with fetus being less than 3%. She reports Duy Jacques contractions and active movement. She denies leaking of fluid or vaginal bleeding. The pain and overall not feeling well started last night. Allergies: NKDA Medical history: Crohn's disease diagnosed 2 years ago. Surgical history: colonoscopy Family history: mother with breast cancer, maternal grandfather with lymphoma and diabetes. Social history: FOB involved. Single. History of marijuana in past. Denies history of smoking, alcohol, or drug abuse. Objective: VS: see below. FHR: 140, moderate variability, positive accelerations, no decelerations. Contractions: occasional. A+Ox3. Respiratory: regular rate. CTA bilaterally. Abdomen: gravid. Soft to palpation but tender to palpation. SVE: closed and thick. No show. Assessment: IUP at 35.5 weeks gestation, abdominal pain, Crohn's, severe IUGR Plan: Saline lock started. CBC and CMP ordered. Zofran ordered for nausea. LR bolus ordered for 500 cc then at 125 cc/hr. Case reviewed with Dr. Ayoub. Stadol and Phenergan ordered to help with nausea and pain. Will see how patient's pain is once she has had rest. DAVID LOPEZ CNM Dec 04, 2019 09:35
[2019-12-04 09:39] LABS: HEMATOCRIT 31.5 % (36.0-47.0); HEMOGLOBIN 9.6 g/dl (12.0-15.5); MEAN CORPUSCULAR HEMOGLOBIN 24.5 pg (27.0-33.0); MEAN CORPUSCULAR HGB CONC 30.5 g/dl (32.0-36.5); MEAN CORPUSCULAR VOLUME 80.4 fl (80.0-96.0); PLATELET COUNT, AUTOMATED 270 10^3/uL (150-450); RED BLOOD COUNT 3.92 10^6/uL (4.00-5.40); WHITE BLOOD COUNT 17.2 10^3/uL (4.0-10.0)
[2019-12-04 10:02] LABS: ALBUMIN 2.8 GM/DL (3.2-5.2); ALT/SGPT 16 U/L (12-78); BILIRUBIN,TOTAL 0.5 MG/DL (0.2-1.0); BLOOD UREA NITROGEN 10 MG/DL (7-18); CALCIUM LEVEL 8.5 MG/DL (8.5-10.1); CARBON DIOXIDE LEVEL 21 MEQ/L (21-32); CHLORIDE LEVEL 108 MEQ/L (98-107); CREATININE FOR GFR 0.45 MG/DL (0.55-1.30); GLOMERULAR FILTRATION RATE > 60.0 (>60); GLUCOSE, FASTING 75 MG/DL (70-100); POTASSIUM SERUM 3.5 MEQ/L (3.5-5.1); SODIUM LEVEL 138 MEQ/L (136-145); TOTAL PROTEIN 6.8 GM/DL (6.4-8.2)
[2019-12-04] MEDS: LR 1,000 ML IV SCH ×2 (10:30→13:49)
[2019-12-04] MEDS ORDERED: BUTORPHANOL 2 MG/ML INJ (J0595) IV ONE (11:00)
[2019-12-04] MEDS ORDERED: PROMETHAZINE INJ 25 MG/ML VIAL (J2550) IV ONE (11:00)
--- NOTE | 2019-12-04 18:09 | IPNPDOC ---
Obstetrical Progress Note Date of Service Dec 04, 2019 Subjective Patient had reported that she felt much better and has been able to sleep after receiving Stadol and Phenergan. She now reports she feels like "crap" again. Objective Vital Signs Date Time Temp Pulse Resp B/P (MAP) Pulse Ox O2 Delivery O2 Flow Rate FiO2 12/04/19 11:32 94 12/04/19 11:30 16 Room Air 12/04/19 11:17 98.5 102 113/70 VS: 1737: BP: 106/62; HR 107; Respiratory rate: 20; temperature 100.9 and oral 99.6. Assessment Heart Rate (FHR): 180 Variability: Moderate Accelerations: Positive Decelerations: None Heart Patterns: Tachycardia Tocometer Contractions: Yes Frequency: irregular Assessment and Plan Age: 19 : 1 Weeks & Days 35.5 weeks gestation Status: Reassuring Additional Comments Assessment: tachycardia, maternal fever Plan of care discussed with Dr. Ayoub. Tylenol 1000 mg PO now UA and urine culture sent to lab COVID-19 test obtained Other DD: pyelonephritis, chorioamnionitis, Crohn's flare-up DAVID LOPEZ CNM Dec 04, 2019 18:09
[2019-12-04] MEDS: ACETAMINOPHEN 500 MG TAB PO PRN (18:10)
[2019-12-04] MEDS ORDERED: MORPHINE 4 MG/ML 1ML VIAL/SYRINGE (J2270) IV ONE (18:30)
[2019-12-04 18:33] LABS: APPEARANCE, URINE HAZY (CLEAR); BACTERIA, URINE AUTO 1+ (NEGATIVE); BILIRUBIN, URINE AUTO NEGATIVE (NEGATIVE); BLOOD, URINE BLOOD NEGATIVE (NEGATIVE); COLOR, URINE YELLOW (YELLOW); GLUCOSE, URINE (UA) AUTO NEGATIVE (NEGATIVE); KETONE, URINE AUTO NEGATIVE (NEGATIVE); LEUKOCYTE ESTERASE, URINE AUTO 3+ (NEGATIVE); NITRITE, URINE AUTO NEGATIVE (NEGATIVE); PROTEIN, URINE AUTO NEGATIVE (NEGATIVE); RBC, URINE AUTO 6 /HPF (0-3); SPECIFIC GRAVITY URINE AUTO 1.006 (1.002-1.035); SQUAMOUS EPITHELIAL CELL UR AU 0 /HPF (0-6); UROBILINOGEN, URINE AUTO 0.2 mg/dL (0.0-2.0); WBC, URINE AUTO 96 /HPF (0-3)
[2019-12-04] MEDS: cefTRIAXone SOD 1 GM in D5W MINI-BAG PLUS 50 ML IV SCH (20:10)
--- NOTE | 2019-12-04 21:33 | IPNPDOC ---
Text Note Date of Service The patient was seen on 12/04/19. NOTE Subjective: Patient reports her pain is better with morphine 4 mg. Objective: VS: see below. Maternal fever noted. FHR has decreased and no longer has tachycardia. FHR 150. Contractions occasional. A+Ox3. CVA tenderness more prominent right side and reports abdominal tenderness is more prominent on her right side. Assessment: IUP at 35.5 , pyelonephritis, maternal fever. Plan: Reviewed findings with Dr. Ayoub. Plan of care obtained. Cetriaxone1 gram Q24H to be started now. BPP with cord dopplers to be ordered tomorrow morning as patient missed her scheduled ultrasound today. Continue with continuous monitoring. Tylenol 1000 mg PO Q6 hours as needed for fever. Consider Stadol and Phenergan again for pain management Continue with IV fluids. VS,Fishbone, I+O VS, Fishbone, I+O Laboratory Tests 12/04/19 09:20 Vital Signs Date Time Temp Pulse Resp B/P (MAP) Pulse Ox O2 Delivery O2 Flow Rate FiO2 12/04/19 18:42 18 12/04/19 18:32 100.9 120 116/69 12/04/19 11:32 94 12/04/19 11:30 Room Air Item Value Date Time Urine Color YELLOW 12/04/19 180 Urine Appearance HAZY 12/04/19 180 Urine pH 6.0 UNITS 12/04/19 1806 Urine Specific [place] 1.006 12/04/19 1806 Urine Protein NEGATIVE mg/dL 12/04/19 180 Urine Glucose (Auto)(UA) NEGATIVE mg/dL 12/04/19 180 Urine Ketones (Auto) NEGATIVE mg/dL 12/04/19 1806 Urine Blood NEGATIVE 12/04/19 1806 Urine Nitrite NEGATIVE 12/04/19 1806 Urine Bilirubin NEGATIVE 12/04/19 1806 Urine Urobilinogen 0.2 mg/dL 12/04/19 1806 Urine Leukocyte Esterase (Auto) 3+ H 12/04/19 1806 Urine WBC (Auto) 96 /HPF H 12/04/19 1806 Urine RBC (Auto) 6 /HPF H 12/04/19 1806 Urine Hyaline Casts (Auto) 0 /LPF 12/04/19 1806 Urine Bacteria (Auto) 1+ H 9/14/20 1806 Urine Squamous Epithelial Cells 0 /HPF 12/04/191805 Item Value Date Time Coronavirus (COVID-19)(PCR) NEGATIVE 12/04/191805 DAVID LOPEZ CNM Dec 04, 2019 21:33
[2019-12-05] VITALS (19 sets, daily range): BP systolic 82–108; BP diastolic 44–65
[2019-12-05] MEDS: MORPHINE 4 MG/ML 1ML VIAL/SYRINGE (J2270) IV PRN ×4 (00:42→14:52)
[2019-12-05] MEDS: ONDANSETRON 4MG/2ML VIAL IV SCH ×6 (02:03→22:00)
[2019-12-05] MEDS: LR 1,000 ML IV SCH ×3 (02:11→18:14)
[2019-12-05] MEDS ORDERED: PROMETHAZINE INJ 25 MG/ML VIAL (J2550) IV ONE (02:45)
[2019-12-05] MEDS ORDERED: BUTORPHANOL 2 MG/ML INJ (J0595) IV ONE (02:45)
[2019-12-05] MEDS ORDERED: PROMETHAZINE INJ 25 MG/ML VIAL (J2550) As Ordered ONE (02:52)
[2019-12-05] MEDS ORDERED: BUTORPHANOL 2 MG/ML INJ (J0595) As Ordered ONE (02:53)
[2019-12-05] MEDS: ACETAMINOPHEN 500 MG TAB PO PRN ×2 (05:19→13:46)
[2019-12-05 16:21] LABS: HEMATOCRIT 29.6 % (36.0-47.0); HEMOGLOBIN 8.7 g/dl (12.0-15.5); MEAN CORPUSCULAR HGB CONC 29.4 g/dl (32.0-36.5); MEAN CORPUSCULAR VOLUME 81.5 fl (80.0-96.0); PLATELET COUNT, AUTOMATED 160 10^3/uL (150-450); RED BLOOD COUNT 3.63 10^6/uL (4.00-5.40); WHITE BLOOD COUNT 12.5 10^3/uL (4.0-10.0)
[2019-12-05 16:54] LABS: ALBUMIN 2.2 GM/DL (3.2-5.2); ALT/SGPT 14 U/L (12-78); BILIRUBIN,TOTAL 0.5 MG/DL (0.2-1.0); BLOOD UREA NITROGEN 5 MG/DL (7-18); CALCIUM LEVEL 8.1 MG/DL (8.5-10.1); CARBON DIOXIDE LEVEL 24 MEQ/L (21-32); CHLORIDE LEVEL 108 MEQ/L (98-107); CREATININE FOR GFR 0.36 MG/DL (0.55-1.30); GLOMERULAR FILTRATION RATE > 60.0 (>60); GLUCOSE, FASTING 75 MG/DL (70-100); POTASSIUM SERUM 3.2 MEQ/L (3.5-5.1); SODIUM LEVEL 138 MEQ/L (136-145); TOTAL PROTEIN 5.5 GM/DL (6.4-8.2)
[2019-12-05] MEDS ORDERED: PROMETHAZINE INJ 25 MG/ML VIAL (J2550) IM ONE (19:30)
[2019-12-05] MEDS ORDERED: PROMETHAZINE INJ 25 MG/ML VIAL (J2550) IM PRN (19:45)
[2019-12-05] MEDS: MORPHINE 10 MG/ML 1ML VIAL (J2270) IM PRN (19:53)
[2019-12-05] MEDS: cefTRIAXone SOD 1 GM in D5W MINI-BAG PLUS 50 ML IV SCH (19:54)
[2019-12-06 01:54] VITALS: BP 96/59
[2019-12-06] MEDS: ONDANSETRON 4MG/2ML VIAL IV SCH ×5 (02:00→18:00)
[2019-12-06] MEDS: LR 1,000 ML IV SCH (02:35)
[2019-12-06] MEDS: MORPHINE 10 MG/ML 1ML VIAL (J2270) IM PRN ×3 (02:35→20:37)
[2019-12-06 04:09] VITALS: BP 95/52
[2019-12-06] MEDS: BETAMETHASONE SOLUSPAN 6MG/ML 5ML VIAL (J0702 PER 3MG) IM SCH (08:36)
[2019-12-06 10:00] LABS: HEMATOCRIT 29.7 % (36.0-47.0); HEMOGLOBIN 8.9 g/dl (12.0-15.5); MEAN CORPUSCULAR HEMOGLOBIN 24.3 pg (27.0-33.0); MEAN CORPUSCULAR VOLUME 80.9 fl (80.0-96.0); PLATELET COUNT, AUTOMATED 195 10^3/uL (150-450); RED BLOOD COUNT 3.67 10^6/uL (4.00-5.40); WHITE BLOOD COUNT 10.9 10^3/uL (4.0-10.0)
--- NOTE | 2019-12-06 10:59 | REPVR ---
PROCEDURE INFORMATION: Exam: US , Limited Exam date and time: 12/06/2019 9:05 AM Age: 19 years old Clinical indication: Abnormal findings; Abnormal radiologic study of abdomen/pelvis; ; Patient HX: Size small for dates; Additional info: Bpp, efw, ua dopplers. Edc: 01/03/20 TECHNIQUE: Imaging protocol: Real-time ultrasound of the maternal uterus with image documentation. Exam focused on the clinical indication. COMPARISON: OBS LIMITED US 12/01/2019 9:33 AM FINDINGS: Gestation: Single viable intrauterine gestation. heart rate: heart rate is 153 bpm. Presentation: Vertex presentation. Placenta: Anterior placenta. Amniotic fluid index: Amniotic fluid index is 11.1 cm. BIOMETRY: Gestational age (AUA): Sonographically estimated gestational age is 33 weeks 2 days. Estimated due date (AUA): Estimated date of delivery is 01/22/2020. Estimated weight: Estimated weight is 2124 g, less 3rd percentile. BPD 8.8 cm 35 weeks 5 days HC 32.1 cm 36 weeks 2 days AC 29.4 cm 33 weeks 2 days FL 5.9 cm 30 weeks 6 days DOPPLER: Umbilical artery Doppler: Umbilical artery S/D ratio is 2.2 with resistive index of 0.55 MATERNAL: Cervix: Cervical length is 3.6 cm. IMPRESSION: Single viable intrauterine gestation 33 weeks 2 days of age. Estimated weight is 2124 g, less 3rd percentile. PROCEDURE INFORMATION: Exam: US Biophysical Profile Without Non-Stress Test Exam date and time: 12/06/2019 9:05 AM Age: 19 years old Clinical indication: Abnormal findings; Abnormal radiologic study of abdomen/pelvis; ; Patient HX: Size small for dates; Additional info: Bpp, efw, ua dopplers. Edc: 01/03/20 TECHNIQUE: Imaging protocol: US biophysical profile without non-stress testing. COMPARISON: OBS LIMITED US 12/01/2019 9:33 AM FINDINGS: BIOPHYSICAL PROFILE: Breathin/2 Gross body movements: 2/2 tone: 2/2 Qualitative amniotic fluid: 2/2 Biophysical Profile Score: 8/8 IMPRESSION: Biophysical profile score is 8 out of 8. Electronically signed by: Brandt Lopes On 12/06/2019 10:59:17 AM
[2019-12-06] MEDS: cefTRIAXone SOD 1 GM in D5W MINI-BAG PLUS 50 ML IV SCH (20:37)
[2019-12-06] MEDS ORDERED: ONDANSETRON 4MG/2ML VIAL IV PRN (21:45)
[2019-12-06 22:00] VITALS: BP 99/57
[2019-12-07 02:00] VITALS: BP 102/57
[2019-12-07 06:00] VITALS: BP 105/59
[2019-12-07] MEDS: BETAMETHASONE SOLUSPAN 6MG/ML 5ML VIAL (J0702 PER 3MG) IM SCH (08:25)
[2019-12-07 09:51] VITALS: BP 104/58
[2019-12-07 13:30] VITALS: BP 110/67
[2019-12-07 17:21] VITALS: BP 110/68
[2019-12-07 20:00] VITALS: BP 114/65
[2019-12-07] MEDS: cefTRIAXone SOD 1 GM in D5W MINI-BAG PLUS 50 ML IV SCH (20:26)
[2019-12-08] VITALS: BP 100/58
[2019-12-08 04:00] VITALS: BP 102/60
[2019-12-08 08:00] VITALS: BP 111/68
--- NOTE | 2019-12-08 08:36 | IPNPDOC ---
Text Note Date of Service The patient was seen on 12/08/19. NOTE Progress Reviewed EFM strips with Tony Willard and Yovana. Minimal to decreased variability through the night. IOL moved to 37 weeks unless changes occur prior. VS,Fishbone, I+O VS, Fishbone, I+O Vital Signs Date Time Temp Pulse Resp B/P (MAP) Pulse Ox O2 Delivery O2 Flow Rate FiO2 12/08/19 08:00 98.4 91 18 111/68 (82) 96 Room Air I&O- Last 24 Hours up to 6 AM 12/08/19 06:00 Intake Total 2230 ml Output Total 3275 ml Balance -1045 ml Anyi Benjamin CNM Dec 08, 2019 08:36
--- NOTE | 2019-12-08 08:51 | IPNPDOC ---
Obstetrical Progress Note Date of Service Dec 07, 2019 Subjective S: Feeling better. Reports movement. No vaginal bleeding, LOF or ctx. O: VSS and AF Gen: well appearin abd: soft, gravid,nttp Cat 1 tracing A/P: IUP at 36 week with IUGR, Pyelonephritis and Crohn's Disease s/p betamethasone Reassuring status - Cont AP care - IOL by 37wks Objective Vital Signs Date Time Temp Pulse Resp B/P (MAP) Pulse Ox O2 Delivery O2 Flow Rate FiO2 12/08/19 08:00 98.4 91 18 111/68 (82) 96 Room Air Assessment Heart Rate Tracing: Category I Assessment and Plan Age: 19 Status: Reassuring AJ PHAN MD. Dec 08, 2019 08:51
--- NOTE | 2019-12-08 08:52 | IPNPDOC ---
Obstetrical Progress Note Date of Service Dec 08, 2019 Subjective S: Feeling better. Reports movement. No vaginal bleeding, LOF or ctx. O: VSS and AF Gen: well appearing abd: soft, gravid,nttp Cat 1 tracing A/P: IUP at 36 week with IUGR, Pyelonephritis and Crohn's Disease s/p betamethasone Reassuring status - Cont AP care - IOL by 37wks Objective Vital Signs Date Time Temp Pulse Resp B/P (MAP) Pulse Ox O2 Delivery O2 Flow Rate FiO2 12/08/19 08:00 98.4 91 18 111/68 (82) 96 Room Air AJ PHAN MD. Dec 08, 2019 08:52
[2019-12-08 12:00] VITALS: BP 102/57
[2019-12-08 16:00] VITALS: BP 119/64
--- NOTE | 2019-12-08 19:29 | IPNPDOC ---
Text Note Date of Service The patient was seen on 12/08/19. NOTE Progress Denies pain. Tolerating diet. Reports good movement. Denies LOF, bleeding or UC VSS, afebrile NST baseline this am, 160, minimal variability NST this pm, baseline 150-160, minimal/moderate variability Reviewed plan with patient. Observe status closely. Plan IOL next wednesday @ 37 wks, sooner if indicated. Physicians aware of pt status. VS,Fishbone, I+O VS, Fishbone, I+O Vital Signs Date Time Temp Pulse Resp B/P (MAP) Pulse Ox O2 Delivery O2 Flow Rate FiO2 12/08/19 16:00 98.5 82 20 119/64 (82) 95 Room Air I&O- Last 24 Hours up to 6 AM 12/08/19 06:00 Intake Total 2230 ml Output Total 3275 ml Balance -1045 ml Anyi Benjamin CNM Dec 08, 2019 19:29
[2019-12-08] MEDS: cefTRIAXone SOD 1 GM in D5W MINI-BAG PLUS 50 ML IV SCH (19:55)
[2019-12-08 20:00] VITALS: BP 110/64
[2019-12-09] VITALS: BP 112/66
[2019-12-09 04:00] VITALS: BP 122/79
[2019-12-09 08:00] VITALS: BP 125/79
[2019-12-09] MEDS ORDERED: KEFL500C17 PO (11:33)
--- NOTE | 2019-12-25 10:55 | DS ---
DATE OF ADMISSION: 12/04/2019. DATE OF DISCHARGE: 12/09/2019. BRIEF HISTORY: A 20-year-old, G1, P0, female at 35 and 5/7 weeks gestation, who presents with left lower abdominal pain that runs up to her mid back on the right side. She generally does not feel well. Her has been complicated by multiple Crohns Disease exacerbations. She has also been diagnosed with severe intrauterine growth restriction. HOSPITAL COURSE: The patient was evaluated on 12/04/2019, admitted with abdominal pain. The pain was different from her Crohns Disease. She subsequently was diagnosed with pyelonephritis . A urine culture was positive for Staph Aureus. She was treated with Ceftriaxone. Her pain gradually improved during hospitalization. Her fevers resolved. She felt completely normal by the end of her hospitalization. She is able to tolerate a regular diet. testing was stable throughout via non-stress test. Patient was deemed stable for discharge on 12/09/2019. ADMISSION DIAGNOSES: at 35 and 5/7 weeks, Crohns Disease, pyelonephritis. DISCHARGE DIAGNOSES: at 35 and 5/7 weeks, Crohns Disease, pyelonephritis. DISPOSITION: Patient will follow-up on 12/11/2019 in the office for evaluation. PLAN: Induction on 12/13/2019 for severe IUGR. Patient will continue Keflex to complete a course of antibiotics for pyelonephritis. ELVI
== END 2019-12-09 12:15 | disposition home or self-care (01) | DRG 566 ==
LOC: M LDO 08:24 → M OBS 12-06 07:30 → M PED 12-07 13:30
PROVIDERS: ADMIT Obstetrics & Gynecology; ATTEND Obstetrics & Gynecology
DX: O99.613 Diseases of the digestive system complicating pregnancy, third trimester (principal); N12 Tubulo-interstitial nephritis, not specified as acute or chronic; K50.90 Crohn's disease, unspecified, without complications; Z3A.35 35 weeks gestation of pregnancy; O36.5930 Maternal care for other known or suspected poor fetal growth, third trimester, not applicable or unspecified; Z11.59 Encounter for screening for other viral diseases; O23.03 Infections of kidney in pregnancy, third trimester

== ENCOUNTER → 2019-12-11 | Outpatient (CLI) | payer OTHER ==
[~2019-12-11] MED LIST changes: +ACET-683 PO; +DOCU100C16 PO; +IBUP80TA PO; +KEFL500C17 PO; +PRED1TABL PO; +PRENTAB9 PO
--- NOTE | 2019-12-21 08:13 | REP ---
BIOPHYSICAL PROFILE ULTRASOUND CLINICAL: wellbeing. TECHNIQUE: Transabdominal obstetrical ultrasound with color Doppler evaluation. FINDINGS: Ultrasound examination demonstrates single live intrauterine in cephalic presentation. motion was identified by the technologist. Placenta is noted anteriorly and grade 2 without evidence for placenta previa or abruption. Amniotic fluid volume is normal. Gestational age by last menstrual period (LMP) 36 weeks 5 days with estimated date of delivery 01/03/2020. heart rate 165 beats per minute. Amniotic fluid index 10.3 cm (7.6-24.6). Biophysical profile score equals 8/8. Umbilical cord S/D ratio 2.4. IMPRESSION: Single live intrauterine in cephalic presentation. Biophysical profile score and amniotic fluid volume are normal. MTDD
== END ==
LOC: M WHC 09:56
PROVIDERS: ATTEND Advanced Practice Midwife
DX: Z34.80 Encounter for supervision of other normal pregnancy, unspecified trimester (principal); Z3A.00 Weeks of gestation of pregnancy not specified

== ENCOUNTER 2019-12-13 07:10 | Inpatient (IN) | payer OTHER ==
[~2019-12-13] VITALS: Ht 157.5 cm; Wt 52.6 kg
[2019-12-13] VITALS (28 sets, daily range): BP systolic 93–123; BP diastolic 51–90
[~2019-12-13 07:10] MED LIST changes: -ACET-683 PO; -IBUP80TA PO
[2019-12-13 08:24] LABS: HEMATOCRIT 34.3 % (36.0-47.0); HEMOGLOBIN 10.3 g/dl (12.0-15.5); MEAN CORPUSCULAR HEMOGLOBIN 23.8 pg (27.0-33.0); MEAN CORPUSCULAR VOLUME 79.4 fl (80.0-96.0); PLATELET COUNT, AUTOMATED 388 10^3/uL (150-450); RED BLOOD COUNT 4.32 10^6/uL (4.00-5.40); WHITE BLOOD COUNT 16.5 10^3/uL (4.0-10.0)
[2019-12-13] MEDS: miSOPROStol 50 MCG 1/2 TAB (S0191) PO SCH ×2 (08:26→13:19)
[2019-12-13] MEDS ORDERED: HYDROCORTISONE 100 MG/2 ML VIAL (J1720 PER 1) IV ONE (10:00)
[2019-12-13] MEDS: ONDANSETRON 4MG/2ML VIAL IV PRN ×2 (10:10→17:53)
[2019-12-13] MEDS ORDERED: DOCUSATE SODIUM 100 MG CAP PO ONE (10:30)
[2019-12-13] MEDS: LR 1,000 ML IV SCH ×3 (10:44→17:56)
[2019-12-13] MEDS: DICYCLOMINE 10 MG CAP PO SCH ×2 (11:39→21:14)
[2019-12-13] MEDS: FERROUS SULFATE 325MG TAB PO SCH (11:39)
[2019-12-13] MEDS: azaTHIOprine 50 MG TAB (J7500) PO SCH (11:39)
[2019-12-13] MEDS: VITAMIN D 1,000 INTERNATIONAL UNITS TABLET PO SCH (11:39)
[2019-12-13] MEDS: CEPHALEXIN 500 MG CAP PO SCH ×2 (11:39→21:14)
[2019-12-13] MEDS ORDERED: MESALAMINE 250 MG CR CAP PO SCH ×2 (14:00→22:00)
[2019-12-13] MEDS ORDERED: MESALAMINE 250 MG CR CAP PO ONE (15:30)
[2019-12-13] MEDS ORDERED: OXYTOCIN DRIP 30 UNITS in IV 1 EA IV SCH ×2 (17:30→23:12)
[2019-12-13] MEDS ORDERED: LR 1,000 ML IV ONE (18:00)
[2019-12-13] MEDS ORDERED: HYDROCORTISONE 100 MG/2 ML VIAL (J1720 PER 1) IV SCH (18:00)
[2019-12-13] MEDS ORDERED: FENTANYL 2MCG/ML ROPIVACAINE 0.2% IN 0.9% NACL 100ML IVBAG As Ordered ONE (18:31)
[2019-12-13] MEDS ORDERED: PROMETHAZINE INJ 25 MG/ML VIAL (J2550) IV ONE (19:30)
[2019-12-13] MEDS ORDERED: FENTANYL/ROPIVACAINE/NACL BAG 100 ML EPIDURAL SCH (19:45)
[2019-12-13] MEDS ORDERED: diphenhydrAMINE 50MG/ML VIAL (J1200) IV PRN (19:45)
[2019-12-13] MEDS ORDERED: ONDANSETRON 4MG/2ML VIAL IV PRN (19:45)
[2019-12-13] MEDS ORDERED: LACTATED RINGER'S 1000 ML IV PRN (19:45)
[2019-12-13] MEDS ORDERED: EPIDURAL COMMENT XX SCH (19:45)
[2019-12-13] MEDS ORDERED: EPIDURAL/PCA KEYS XX PRN (19:45)
[2019-12-13] MEDS ORDERED: NALOXONE INJ 0.4MG/1ML VIAL (J2310 PER 1MG) IV PRN (19:45)
[2019-12-13] MEDS ORDERED: REFRIGERATOR IV KEYS XX PRN (19:45)
[2019-12-13] MEDS ORDERED: ePHEDrine SULFATE 25 MG/5 ML(5MG/ML) SYRINGE IV PRN (19:45)
[2019-12-13] MEDS: MESALAMINE 250 MG CR CAP PO SCH (21:15)
[2019-12-13] MEDS ORDERED: IBUPROFEN 800 MG TAB PO PRN (23:15)
[2019-12-13] MEDS ORDERED: MEASLES,MUMPS,RUBELLA VACCINE INJ (MMR-II) (90707) SC SCH (23:15)
[2019-12-13] MEDS ORDERED: METHYLERGONOVINE MALEATE 0.2 MG TAB PO PRN (23:15)
[2019-12-13] MEDS ORDERED: DIBUCAINE 1% OINTMENT 30GM TOP PRN (23:15)
[2019-12-13] MEDS ORDERED: RHOGAM 300 MCG (1500 IU) INJ (J2790) IM SCH (23:15)
[2019-12-13] MEDS ORDERED: IBUPROFEN 600MG TAB PO PRN (23:15)
[2019-12-13] MEDS ORDERED: ACETAMINOPHEN TAB 650MG DOSE (2X325MG) PO PRN (23:15)
[2019-12-14 00:10] VITALS: BP 125/68
[2019-12-14 00:25] VITALS: BP 116/60
[2019-12-14 00:48] VITALS: BP 119/69
[2019-12-14 01:22] VITALS: BP 105/70
[2019-12-14] MEDS: ACETAMINOPHEN 500 MG TAB PO PRN ×2 (05:45→14:23)
[2019-12-14] MEDS: MESALAMINE 250 MG CR CAP PO SCH ×3 (05:49→21:43)
[2019-12-14 05:53] VITALS: BP 110/73
[2019-12-14] MEDS: azaTHIOprine 50 MG TAB (J7500) PO SCH (08:39)
[2019-12-14] MEDS: PRENATAL VITAMINS CHEWABLE TABLET PO SCH (08:39)
[2019-12-14] MEDS: predniSONE 10 MG TAB PO SCH (08:39)
[2019-12-14] MEDS: DICYCLOMINE 10 MG CAP PO SCH ×2 (08:39→21:43)
[2019-12-14] MEDS: VITAMIN D 1,000 INTERNATIONAL UNITS TABLET PO SCH (08:39)
[2019-12-14] MEDS: FERROUS SULFATE 325MG TAB PO SCH (08:39)
[2019-12-14] MEDS: CEPHALEXIN 500 MG CAP PO SCH ×2 (08:39→21:43)
[2019-12-14] MEDS ORDERED: INFLUENZA QUADRIVALENT PF VACCINE 0.5ML SYRINGE IM ONE (09:00)
[2019-12-14 18:00] VITALS: BP 111/61
[2019-12-15] MEDS: ACETAMINOPHEN 500 MG TAB PO PRN (05:57)
[2019-12-15] MEDS: MESALAMINE 250 MG CR CAP PO SCH (05:57)
[2019-12-15 06:13] VITALS: BP 116/61
[2019-12-15] MEDS ORDERED: ACET-683 PO (07:19)
[2019-12-15] MEDS ORDERED: IBUP80TA PO (07:19)
[2019-12-15] MEDS: VITAMIN D 1,000 INTERNATIONAL UNITS TABLET PO SCH (08:22)
[2019-12-15] MEDS: PRENATAL VITAMINS CHEWABLE TABLET PO SCH (08:23)
[2019-12-15] MEDS: CEPHALEXIN 500 MG CAP PO SCH (08:23)
[2019-12-15] MEDS: DICYCLOMINE 10 MG CAP PO SCH (08:23)
[2019-12-15] MEDS: azaTHIOprine 50 MG TAB (J7500) PO SCH (08:23)
[2019-12-15] MEDS: FERROUS SULFATE 325MG TAB PO SCH (08:23)
[2019-12-15] MEDS: predniSONE 10 MG TAB PO SCH (08:23)
[2019-12-15] MEDS ORDERED: INFLUENZA QUADRIVALENT PF VACCINE 0.5ML SYRINGE IM ONE (09:00)
== END 2019-12-15 10:47 | disposition home or self-care (01) | DRG 560 ==
LOC: M LDI 07:10 → M OBS 12-14 01:05
PROVIDERS: ADMIT Advanced Practice Midwife; ATTEND Advanced Practice Midwife
PROC: 10E0XZZ Delivery of Products of Conception, External Approach (ICD-10-PCS; principal; 2019-12-13)
PROC: 0HQ9XZZ Repair Perineum Skin, External Approach (ICD-10-PCS; 2019-12-13)
PROC: 3E0P7GC Introduction of Other Therapeutic Substance into Female Reproductive, Via Natural or Artificial Opening (ICD-10-PCS; 2019-12-13)
DX: O36.5930 Maternal care for other known or suspected poor fetal growth, third trimester, not applicable or unspecified (principal); K50.90 Crohn's disease, unspecified, without complications; Z3A.37 37 weeks gestation of pregnancy; O99.62 Diseases of the digestive system complicating childbirth; O32.6XX0 Maternal care for compound presentation, not applicable or unspecified; O70.0 First degree perineal laceration during delivery; Z37.0 Single live birth

== ENCOUNTER → 2019-12-22 | Outpatient (CLI) | payer OTHER ==
[~2019-12-22] MED LIST changes: +ACET-683 PO; +IBUP80TA PO
[2019-12-22 13:54] LABS: HEMATOCRIT 44.2 % (36.0-47.0); MEAN CORPUSCULAR HEMOGLOBIN 23.7 pg (27.0-33.0); MEAN CORPUSCULAR HGB CONC 29.4 g/dl (32.0-36.5); MEAN CORPUSCULAR VOLUME 80.7 fl (80.0-96.0); PLATELET COUNT, AUTOMATED 448 10^3/uL (150-450); RED BLOOD COUNT 5.48 10^6/uL (4.00-5.40); WHITE BLOOD COUNT 15.9 10^3/uL (4.0-10.0)
[2019-12-22 14:18] LABS: ALBUMIN 3.3 GM/DL (3.2-5.2); ALT/SGPT 15 U/L (12-78); BILIRUBIN,TOTAL 0.5 MG/DL (0.2-1.0); BLOOD UREA NITROGEN 13 MG/DL (7-18); CALCIUM LEVEL 9.7 MG/DL (8.5-10.1); CARBON DIOXIDE LEVEL 25 MEQ/L (21-32); CHLORIDE LEVEL 104 MEQ/L (98-107); CREATININE FOR GFR 0.75 MG/DL (0.55-1.30); GLOMERULAR FILTRATION RATE > 60.0 (>60); GLUCOSE, FASTING 119 MG/DL (70-100); LIPASE 149 U/L (73-393); POTASSIUM SERUM 4.4 MEQ/L (3.5-5.1); SODIUM LEVEL 136 MEQ/L (136-145)
[2019-12-22 14:19] LABS: ERYTHROCYTE SEDIMENTATION RATE 30 mm/hr (0-20)
== END ==
LOC: M LAB 12:52
PROVIDERS: ATTEND Internal Medicine Gastroenterology
DX: R10.84 Generalized abdominal pain (principal); D64.9 Anemia, unspecified; K50.90 Crohn's disease, unspecified, without complications; K63.3 Ulcer of intestine; K59.1 Functional diarrhea

== ENCOUNTER 2019-12-24 08:21 | Emergency (ER) | payer OTHER ==
[~2019-12-24] VITALS: Ht 157.5 cm; Wt 45.8 kg
[2019-12-24] MEDS ORDERED: NS 1,000 ML IV ONE (09:00)
[2019-12-24 09:05] LABS: BASO % 0.2 % (0.0-1.0); EOS % 0.1 % (0.0-3.0); HEMATOCRIT 43.9 % (36.0-47.0); HEMOGLOBIN 13.1 g/dl (12.0-15.5); LYMPH # 1.7 10^3/uL (1.5-5.0); LYMPH % 11.6 % (24.0-44.0); MEAN CORPUSCULAR HEMOGLOBIN 23.6 pg (27.0-33.0); MEAN CORPUSCULAR HGB CONC 29.8 g/dl (32.0-36.5); MEAN CORPUSCULAR VOLUME 79.1 fl (80.0-96.0); MONO # 1.1 10^3/uL (0.0-0.8); MONO % 7.4 % (0.0-5.0); NEUTROPHILS # 11.8 10^3/uL (1.5-8.5); NEUTROPHILS % 80.2 % (36.0-66.0); PLATELET COUNT, AUTOMATED 499 10^3/uL (150-450); RED BLOOD COUNT 5.55 10^6/uL (4.00-5.40); WHITE BLOOD COUNT 14.8 10^3/uL (4.0-10.0)
[2019-12-24] MEDS ORDERED: ONDANSETRON 4MG/2ML VIAL IV ONE (09:30)
[2019-12-24] MEDS ORDERED: MORPHINE 2 MG/ML 1ML VIAL (J2270) IV ONE (09:30)
--- NOTE | 2019-12-24 10:16 | REPVR ---
PROCEDURE INFORMATION: Exam: US Nonobstetric Pelvis; Complete Exam date and time: 12/24/2019 10:04 AM Age: 19 years old Clinical indication: Pelvic pain; Prior surgery; Surgery date: <1 month; Surgery type: No surgery but , less than 2 weeks post ; Additional info: 2 weeks pp, heavy bleeding TECHNIQUE: Imaging protocol: Transabdominal pelvic nonobstetric ultrasound. Complete exam. Real time ultrasound with image documentation. COMPARISON: CT ABD/PEL W/IV CONTRAST ONLY 12/15/2017 8:54 AM FINDINGS: Uterus/cervix: uterus measures 12.5 x 6.5 x 8.1 cm. Fluid in the poorly visualized endometrium, which measures approximately 14 mm in maximum diameter. Right adnexa: Right ovary measures 3.4 by 1.8 x 1.6 cm. Left adnexa: Left ovary measures 2.9 x 1.4 x 2.3 cm. Intraperitoneal space: Trace free fluid. IMPRESSION: Fluid in the poorly visualized endometrium, which measures approximately 14 mm in maximum diameter. Electronically signed by: Ralf Lovett On 12/24/2019 10:15:33 AM
[2019-12-24 10:19] LABS: ALBUMIN 3.3 GM/DL (3.2-5.2); ALT/SGPT 14 U/L (12-78); BILIRUBIN,DIRECT 0.2 MG/DL (0.0-0.2); BILIRUBIN,TOTAL 0.7 MG/DL (0.2-1.0); BLOOD UREA NITROGEN 12 MG/DL (7-18); CALCIUM LEVEL 9.5 MG/DL (8.5-10.1); CARBON DIOXIDE LEVEL 22 MEQ/L (21-32); CHLORIDE LEVEL 109 MEQ/L (98-107); CREATININE FOR GFR 0.64 MG/DL (0.55-1.30); GLOMERULAR FILTRATION RATE > 60.0 (>60); GLUCOSE, FASTING 80 MG/DL (70-100); POTASSIUM SERUM 3.6 MEQ/L (3.5-5.1); SODIUM LEVEL 141 MEQ/L (136-145); TOTAL PROTEIN 8.1 GM/DL (6.4-8.2)
[2019-12-24] MEDS ORDERED: ISOVUE-370 76% 100ML VIAL As Ordered ONE (10:55)
[2019-12-24] MEDS ORDERED: KETOROLAC 30 MG/ML 1ML VIAL IV ONE (11:00)
[2019-12-24] MEDS ORDERED: cefTRIAXone SOD 1 GM in D5W MINI-BAG PLUS 50 ML IV ONE (11:00)
[2019-12-24] MEDS ORDERED: MORPHINE 4 MG/ML 1ML VIAL/SYRINGE (J2270) IV ONE (11:45)
--- NOTE | 2019-12-24 11:59 | REPVR ---
PROCEDURE INFORMATION: Exam: CT Abdomen And Pelvis With Contrast Exam date and time: 12/24/2019 11:36 AM Age: 19 years old Clinical indication: Abdominal pain; Additional info: Rlq pain, pelvic pain, 2 weeks pp TECHNIQUE: Imaging protocol: Computed tomography of the abdomen and pelvis with intravenous contrast. Radiation optimization: All CT scans at this facility use at least one of these dose optimization techniques: automated exposure control; mA and/or kV adjustment per patient size (includes targeted exams where dose is matched to clinical indication); or iterative reconstruction. Contrast material: ISOVUE 370; Contrast volume: 100 ml; Contrast route: INTRAVENOUS (IV); COMPARISON: CT ABD/PEL W/IV CONTRAST ONLY 12/15/2017 8:54 AM FINDINGS: Pleural space: No significant airspace or pleural disease. Liver: Inhomogeneous attenuation of the liver, including poorly defined hypodensity in the posterior hepatic dome. Gallbladder and bile ducts: Gallbladder dilatation. No cholelithiasis or biliary ductal dilatation. New Pancreas: Borderline pancreatic ductal dilatation without focal mass. Spleen: Spleen upper limits of normal in size. Adrenals: Unremarkable adrenals. Kidneys and ureters: Two 1 mm nonobstructing right renal calculi with mild right hydronephrosis. 1 mm punctate hypodensity in the anterior right kidney which is too small to accurately characterize. Stomach and bowel: Combined small bowel and colonic dilatation along with prominent stool. Cecal wall thickening and mild infiltration of surrounding fat, consistent with focal colitis in the appropriate clinical setting. Appendix: Nonvisualization of the appendix. Intraperitoneal space: Small quantity of free fluid in the pelvis. Vasculature: Normal caliber of the abdominal aorta. Lymph nodes: Mesenteric lymph nodes, including a 1.2 by 1.0 by 1.6 cm lymph node in the right mid abdomen. Urinary bladder: Mild circumferential bladder wall thickening. Reproductive: Fluid in the uterus with poorly defined curvilinear hyperdensities anteriorly, which was poorly visualized on earlier transabdominal pelvic ultrasound. Transvaginal ultrasound can be performed for improved characterization, if clinically indicated. Bones/joints: Schmorl's nodes in the spine. IMPRESSION: 1. Cecal wall thickening and mild infiltration of surrounding fat, consistent with focal colitis in the appropriate clinical setting. 2. Two 1 mm nonobstructing right renal calculi with mild right hydronephrosis. 3. Fluid in the uterus with poorly defined curvilinear hyperdensities anteriorly, which was poorly visualized on transabdominal pelvic ultrasound. Transvaginal ultrasound can be performed for improved characterization, if clinically indicated. 4. Combined small bowel and colonic dilatation along with prominent stool. 5. Additional findings as described above. Electronically signed by: Ralf Lovett On 12/24/2019 11:59:22 AM
[2019-12-24 12:24] VITALS: BP 107/64
[2019-12-24] MEDS ORDERED: KEFL500C17 PO (12:41)
== END 2019-12-24 13:04 | disposition home or self-care (01) ==
LOC: M ED 08:21
DX: O90.89 Other complications of the puerperium, not elsewhere classified (principal); N10 Acute pyelonephritis; K50.90 Crohn's disease, unspecified, without complications; N20.0 Calculus of kidney; N13.39 Other hydronephrosis; R00.0 Tachycardia, unspecified; Z87.440 Personal history of urinary (tract) infections
CPT/HCPCS: 36415; 74177; 76856; 80048; 80076; 81001; 85025; 86850; 86900; 86901; 87086; 96361; 96365; 96375; 96376; 99284; J0696; J1885; J2270; J2405; Q9967

== ENCOUNTER 2020-01-18 08:37 | Outpatient (CLI) | payer OTHER ==
[~2020-01-18] VITALS: Ht 160 cm; Wt 44.5 kg
[~2020-01-18 08:37] MED LIST changes: +ACETAMINOPHEN 650MG PO PRIOR TO INFUSION PO ONE; +INFLIXIMAB BIOSIMILAR 300 MG in NS 220 ML IV ONE; +NS 1,000 ML IV SCH
[2020-01-18 08:59] VITALS: BP 96/56
[2020-01-18 09:01] VITALS: BP 96/56
[2020-01-18 09:45] VITALS: BP 101/51
[2020-01-18 10:01] VITALS: BP 100/58
[2020-01-18 10:30] VITALS: BP 103/61
[2020-01-18 11:45] VITALS: BP 102/61
== END 2020-01-18 11:45 | disposition home or self-care (01) ==
LOC: M INFU 08:37
PROVIDERS: ATTEND Internal Medicine Gastroenterology
DX: K50.90 Crohn's disease, unspecified, without complications (principal)
CPT/HCPCS: 96413; 96415; Q5103

== ENCOUNTER 2020-02-01 10:05 | Outpatient (CLI) | payer OTHER ==
[~2020-02-01] VITALS: Ht 160 cm; Wt 44.4 kg
[2020-02-01 10:17] VITALS: BP 113/56
[2020-02-01 10:22] VITALS: BP 113/56
[2020-02-01 11:15] VITALS: BP 102/66
[2020-02-01 11:30] VITALS: BP 11/69
[2020-02-01 12:51] VITALS: BP 92/61
== END 2020-02-01 12:50 | disposition home or self-care (01) ==
LOC: M INFU 10:05
PROVIDERS: ATTEND Internal Medicine Gastroenterology
DX: K50.90 Crohn's disease, unspecified, without complications (principal)
CPT/HCPCS: 96365; 96366; Q5103

== ENCOUNTER → 2020-02-27 | Outpatient (CLI) | payer OTHER ==
[~2020-02-27] MED LIST changes: -ACETAMINOPHEN 650MG PO PRIOR TO INFUSION PO ONE; -INFLIXIMAB BIOSIMILAR 300 MG in NS 220 ML IV ONE; -NS 1,000 ML IV SCH
[2020-02-27 12:21] LABS: HEMATOCRIT 40.7 % (36.0-47.0); HEMOGLOBIN 12.2 g/dl (12.0-15.5); MEAN CORPUSCULAR HEMOGLOBIN 27.2 pg (27.0-33.0); MEAN CORPUSCULAR VOLUME 90.6 fl (80.0-96.0); PLATELET COUNT, AUTOMATED 314 10^3/uL (150-450); RED BLOOD COUNT 4.49 10^6/uL (4.00-5.40); WHITE BLOOD COUNT 4.7 10^3/uL (4.0-10.0)
[2020-02-27 12:49] LABS: ALBUMIN 3.5 GM/DL (3.2-5.2); ALT/SGPT 20 U/L (12-78); BILIRUBIN,TOTAL 0.4 MG/DL (0.2-1.0); BLOOD UREA NITROGEN 10 MG/DL (7-18); CALCIUM LEVEL 8.6 MG/DL (8.5-10.1); CARBON DIOXIDE LEVEL 27 MEQ/L (21-32); CHLORIDE LEVEL 110 MEQ/L (98-107); CREATININE FOR GFR 0.77 MG/DL (0.55-1.30); GLOMERULAR FILTRATION RATE > 60.0 (>60); GLUCOSE, FASTING 68 MG/DL (70-100); POTASSIUM SERUM 4.2 MEQ/L (3.5-5.1); SODIUM LEVEL 140 MEQ/L (136-145); TOTAL PROTEIN 7.1 GM/DL (6.4-8.2)
[2020-02-27 12:50] LABS: ERYTHROCYTE SEDIMENTATION RATE 8 mm/hr (0-20)
== END ==
LOC: M LAB 11:33
PROVIDERS: ATTEND Internal Medicine Gastroenterology
DX: K50.90 Crohn's disease, unspecified, without complications (principal); D64.9 Anemia, unspecified; K59.1 Functional diarrhea

== ENCOUNTER 2020-02-29 10:43 | Outpatient (CLI) | payer OTHER ==
[~2020-02-29] VITALS: Ht 160 cm; Wt 44.4 kg
[~2020-02-29 10:43] MED LIST changes: +ACETAMINOPHEN 650MG PO PRIOR TO INFUSION PO ONE; +INFLIXIMAB BIOSIMILAR 300 MG in NS 220 ML IV ONE; +NS 1,000 ML IV SCH
[2020-02-29 11:26] VITALS: BP 107/65
[2020-02-29 11:28] VITALS: BP 107/65
[2020-02-29 11:30] VITALS: BP 110/56
[2020-02-29 12:04] VITALS: BP 114/61
[2020-02-29 12:15] VITALS: BP 100/57
[2020-02-29 13:30] VITALS: BP 111/71
== END 2020-02-29 13:30 | disposition home or self-care (01) ==
LOC: M INFU 10:43
PROVIDERS: ATTEND Internal Medicine Gastroenterology
DX: K50.90 Crohn's disease, unspecified, without complications (principal)
CPT/HCPCS: 96365; 96366; Q5103

== ENCOUNTER → 2020-04-10 | Outpatient (CLI) | payer SELFPAY ==
[~2020-04-10] MED LIST changes: -ACETAMINOPHEN 650MG PO PRIOR TO INFUSION PO ONE; -INFLIXIMAB BIOSIMILAR 300 MG in NS 220 ML IV ONE; -NS 1,000 ML IV SCH; +SIME80CH5 PO; -SIME80TA PO
== END ==
LOC: M LABSMTC 14:19
PROVIDERS: ATTEND Pediatrics
DX: Z20.828 Contact with and (suspected) exposure to other viral communicable diseases (principal)

== ENCOUNTER → 2020-04-19 | Outpatient (CLI) | payer OTHER ==
[2020-04-19 13:18] LABS: HEMATOCRIT 39.2 % (36.0-47.0); MEAN CORPUSCULAR HEMOGLOBIN 28.3 pg (27.0-33.0); MEAN CORPUSCULAR HGB CONC 30.6 g/dl (32.0-36.5); MEAN CORPUSCULAR VOLUME 92.5 fl (80.0-96.0); PLATELET COUNT, AUTOMATED 273 10^3/uL (150-450); RED BLOOD COUNT 4.24 10^6/uL (4.00-5.40); WHITE BLOOD COUNT 5.2 10^3/uL (4.0-10.0)
[2020-04-19 13:43] LABS: ERYTHROCYTE SEDIMENTATION RATE 7 mm/hr (0-20)
[2020-04-19 13:52] LABS: ALBUMIN 3.7 GM/DL (3.2-5.2); ALT/SGPT 18 U/L (12-78); BILIRUBIN,TOTAL 0.4 MG/DL (0.2-1.0); BLOOD UREA NITROGEN 10 MG/DL (7-18); CALCIUM LEVEL 9.1 MG/DL (8.5-10.1); CARBON DIOXIDE LEVEL 27 MEQ/L (21-32); CHLORIDE LEVEL 106 MEQ/L (98-107); CREATININE FOR GFR 0.82 MG/DL (0.55-1.30); GLOMERULAR FILTRATION RATE > 60.0 (>60); GLUCOSE, FASTING 67 MG/DL (70-100); POTASSIUM SERUM 4.2 MEQ/L (3.5-5.1); SODIUM LEVEL 140 MEQ/L (136-145); TOTAL PROTEIN 7.4 GM/DL (6.4-8.2)
== END ==
LOC: M LAB 12:26
PROVIDERS: ATTEND Internal Medicine Gastroenterology
DX: D64.9 Anemia, unspecified (principal); R50.9 Fever, unspecified; K50.90 Crohn's disease, unspecified, without complications

== ENCOUNTER 2020-04-25 10:28 | Outpatient (CLI) | payer OTHER ==
[~2020-04-25] VITALS: Ht 160 cm; Wt 44.4 kg
[2020-04-25] VITALS (7 sets, daily range): BP systolic 62–115; BP diastolic 52–70
[2020-04-25] MEDS ORDERED: INFLIXIMAB BIOSIMILAR 300 MG in NS 220 ML IV ONE (10:30)
[2020-04-25] MEDS ORDERED: NS 1,000 ML IV SCH (10:30)
[2020-04-25] MEDS ORDERED: ACETAMINOPHEN 650MG PO PRIOR TO INFUSION PO ONE (10:30)
== END 2020-04-25 13:10 | disposition home or self-care (01) ==
LOC: M INFU 10:28
PROVIDERS: ATTEND Internal Medicine Gastroenterology
DX: K50.90 Crohn's disease, unspecified, without complications (principal)
CPT/HCPCS: 96413; 96415; Q5103

== ENCOUNTER → 2020-05-03 | Outpatient (CLI) | payer OTHER | LOC: M LAB 12:49 | PROVIDERS: ATTEND Internal Medicine Gastroenterology | DX: K50.90 Crohn's disease, unspecified, without complications (principal) ==

== ENCOUNTER 2020-05-09 19:19 | Emergency (ER) | payer OTHER ==
[~2020-05-09] VITALS: Ht 157.5 cm; Wt 43.4 kg
--- OUTSIDE RECORDS SUMMARY | 2020-05-09 19:30 | CCD | Continuity of Care Document ---
Author Author [facility] [employer] [facility] Organization Unknown Address [address] [place] [address] [place] [address] Phone [phone] Problems Description No Information Available Social History Type Date Description Comments Sex Unknown Tobacco Use Start: Unknown Never Smoked Cigarettes ETOH Use Never used alcohol Tobacco Use Start: Unknown The patient has never vaped Smoking Status Reviewed: 04/12/20 The patient has never vaped Allergies, Adverse Reactions, Alerts Active Allergies Reaction Severity Comments Date Seasonal 01/24/2017 Aspirin eye swelling 04/12/2020 Motrin d/t Crohns 04/12/2020 Inactive Allergies NKDA 07/30/2015 Medications Active Medications SIG Qnty Indications Ordering Provide r Date Ferrous Sulfate 325(65Fe) mg Table ts 1 by mouth every day Unknown BCP Unknown Azathioprine Unknown Remicade 100mg Solution Rec Unknown Vitamin D3 Adult Gummies 25mcg (1000 Ut) Chewtabs Unknown Immunizations Description No Information Available Vital Signs Date Vital Result Comment 04/12/2020 3:41pm BP Systolic 102 mmHg BP Diastolic 68 mmHg Heart Rate 108 /min Respiratory Rate 10 /min O2 % BldC Oximetry 98 % Body Temperature 97.8 F Weight 100.00 lb Height 62 inches 5'2" BMI (Body Mass Index) 18.3 kg/m2 Pain Level 5 02/04/2019 12:28pm BP Systolic 101 mmHg BP Diastolic 98 mmHg Heart Rate 99 /min Respiratory Rate 20 /min O2 % BldC Oximetry 99 % Body Temperature 98.2 F Weight 92.00 lb Height 62 inches 5'2" BMI (Body Mass Index) 16.8 kg/m2 Results Description No Information Available Procedures Description No Information Available Medical Devices Description No Information Available Encounters Type Date Location Provider Dx Diagnosis Office Visit 04/12/2020 3:15p [facility] Yessy Sharma P J06.9 Acute upper respiratory infection, unspecified Z20.828 Contact w and exposure to ot h viral communicable diseases Assessments Date Code Description Provider 04/12/2020 J06.9 Acute upper respiratory infectio n, unspecified Donna Honeycutt NP 04/12/2020 Z20.828 Contact with and (becker spected) exposure to other viral communicable diseases Donna Honeycutt NP Plan of Treatment No Information Available Functional Status Description No Information Available Mental Status Description No Information Available Referrals Description No Information Available
--- OUTSIDE RECORDS SUMMARY | 2020-05-09 19:30 | CCD ---
Author Author [facility] Organization [facility] Address Unknown Phone Unavailable Care Team Providers Care Mirror Framer Name Role Phone La Nena Rojas Unavailable PROBLEMS Type Condition ICD9-CM Code IPC98-GA Code Onset Dates Condition S tatus SNOMED Code Notes Problem Crohns disease K50.90 Active 25413836 Problem Crohn disease K50.90 Active 07193627 Problem Supervision of other normal Z34.80 Ac tive 642976812 ALLERGIES Allergen (clinical drug ingredient) Drug/Non Drug Allergy do cumented on EMR Reaction Allergy Type Onset Date Status peanuts hives, itchy throat Non Drug Allergy Active Pollen Unknown Non Drug Allergy Active ENCOUNTERS from 1998 to 2020-02-12 Encounter Location Date Provider Diagnosis [facility] [address] [place] [id number] Jan, La Nena Rojas Encounter for postpa rtum visit Z39.2 and Encounter for initial prescription of contraceptive pills Z30.011 IMMUNIZATIONS No Information SOCIAL HISTORY Tobacco Use: Social History Observation Description Date Details (start date - stop date) Never Smoker Sex Assigned At : Social History Observation Description Sex Assigned At Unknown Alcohol Screening: Question Answer Notes Did you have a drink containing alcohol in the past year? No Points 0 Interpretation Negative Tobacco Use: Question Answer Notes Are you a: never smoker REASON FOR REFERRAL No Information VITAL SIGNS Weight 95.4 lbs Jan, Height 62 in Jan, BMI 17.45 kg/m2 Jan, Blood pressure systolic 100 mm Hg Jan, Blood pressure diastolic 68 mm Hg Jan, MEDICATIONS Medication SIG (Take, Route, Frequency, Duration) Notes Start Da te End Date Status Vitamin D3 50 MCG (1999) 1 tablet Orally Once a day Active Sprintec 28 0.25-35 MG-MCG 1 tablet Orally Once a day for 28 day (s) Jan, Active Iron (Ferrous Sulfate) 142 (45 Fe) MG 1 tablet Orally Once a day Active PredniSONE 10 MG as directed Orally Once a day for 30 day(s) Active Cyclobenzaprine HCl 10 MG 1 tablet at bedtime as neede d Orally Once a day for 30 day(s) Sep, Not-Taking Pentasa 250 MG 2 caps Orally BID Act kaylie Vitamins 28-0.8 MG 1 tablet Orally Once a day Not-Taking Azathioprine 50 MG as directed Orally Active Remicade 100 MG as directed Intravenous Active PROCEDURES No Information RESULTS No Results REASON FOR VISIT 6 WK PP MEDICAL (GENERAL) HISTORY Type Description Date Medical History Crohns Surgical History none Hospitalization History Crohn Disease 06/2017 Hospitalization History childbirth Goals Section No Information Health Concerns No Information MEDICAL EQUIPMENT No Information MENTAL STATUS No Information FUNCTIONAL STATUS No Information ASSESSMENTS Encounter Date Diagnosis Assessment Notes Treatment Notes Treatm ent Clinical Notes Jan, Encounter for visit (ICD-10 - Z39.2) Jan, Encounter for initial prescr iption of contraceptive pills (ICD-10 - Z30.011) PLAN OF TREATMENT Medication Medication Name Sig Start Date Stop Date Sprintec 28 0.25-35 MG-MCG 1 tablet Orally Once a day for 28 day(s) Jan, Next Appt Details 3 Months for annual/pap Reason: Insurance Providers Payer Name Payer Address Payer Phone Insured Name Patient Relati onship to Insured Coverage Start Date Coverage End Date [employer] [employer] [facility] [place] [facility] [address] [facility] [id number] DK ANDERSON self
--- OUTSIDE RECORDS SUMMARY | 2020-05-09 19:30 | CCD | Continuity of Care Document ---
Author Author [facility] [employer] [facility] Organization Unknown Address [address] [place] [address] [place] [address] Phone [phone] Problems Description No Information Available Social History [...]
--- OUTSIDE RECORDS SUMMARY | 2020-05-09 19:31 | CCD ---
Author Author [facility] Organization [facility] Address Unknown Phone Unavailable Care Team Providers Care Artificial Insemination Technician Name Role Phone ZITA GATES Unavailable Unavailable Pedro Bain MD Unavailable Unavailable Pedro Bain MD Unavailable Unavailable Pedro Bain MD Unavailable Unavailable Pedro Bain MD Unavailable Unavailable Pedro Bain MD Unavailable Unavailable Pedro Bain MD Unavailable Unavailable Pedro Bain MD Unavailable Unavailable Pedro Bain MD Unavailable Unavailable Pedro Bain MD Unavailable Unavailable Pedro Bain MD Unavailable Unavailable Pedro Bain MD Unavailable Unavailable Pedro Bain MD Unavailable Unavailable Pedro Bain MD Unavailable Unavailable Pedro Bain MD Unavailable Unavailable Pedro Bain MD Unavailable Unavailable Pedro Bain MD Unavailable Unavailable Pedro Bain MD Unavailable Unavailable Pedro Bain MD Unavailable Unavailable Pedro Bain MD Unavailable Unavailable Pedro Bain MD Unavailable Unavailable Pedro Bain MD Unavailable Unavailable Pedro Bain MD Unavailable Unavailable Pedro Bain MD Unavailable Unavailable Pedro Bain MD Unavailable Unavailable Pedro Bain MD Unavailable Unavailable Pedro Bain MD Unavailable Unavailable Pedro Bain MD Unavailable Unavailable Pedro Bain MD Unavailable Unavailable Pedro Bain MD Unavailable Unavailable Pedro Bain MD Unavailable Unavailable Pedro Bain MD Unavailable Unavailable Pedro Bain MD Unavailable Unavailable Pedro Bain MD Unavailable Unavailable Pedro Bain MD Unavailable Unavailable Pedro Bain MD Unavailable Unavailable Pedro Bain MD Unavailable Unavailable Pedro Bain MD Unavailable Unavailable Pedro Bain MD Unavailable Unavailable Pedro Bain MD Unavailable Unavailable Pedro Bain MD Unavailable Unavailable Pedro Bain MD Unavailable Unavailable Pedro Bain MD Unavailable Unavailable Pedro Bain MD Unavailable Unavailable Pedro Bain MD Unavailable Unavailable Pedor Bain MD Unavailable Unavailable Pedro Bain MD Unavailable Unavailable Pedro Bain MD Unavailable Unavailable Pedro Bain MD Unavailable Unavailable Pedro Bain MD Unavailable Unavailable Pedro Bain MD Unavailable Unavailable Pedro Bain MD Unavailable Unavailable Pedro Bain MD Unavailable Unavailable Pedro Bain MD Unavailable Unavailable Pedro Bain MD Unavailable Unavailable Pedro Bain MD Unavailable Unavailable Pedro Bain MD Unavailable Unavailable Pedro Bain MD Unavailable Unavailable Pedro Bain MD Unavailable Unavailable Pedro Bain MD Unavailable Unavailable Pedro Bain MD Unavailable Unavailable Pedro Bain MD Unavailable Unavailable Pedro Bain MD Unavailable Unavailable Pedro Bain MD Unavailable Unavailable Pedro Bain MD Unavailable Unavailable Pedro Bain MD Unavailable Unavailable Pedro Bain MD Unavailable Unavailable Pedro Bain MD Unavailable Unavailable Pedro Bain MD Unavailable Unavailable Pedro Bain MD Unavailable Unavailable Pedro Bain MD Unavailable Unavailable Pedro Bain MD Unavailable Unavailable Pedro Bain MD Unavailable Unavailable Pedro Bain MD Unavailable Unavailable Pedro Bain MD Unavailable Unavailable Pedro Bain MD Unavailable Unavailable Pedro Bain MD Unavailable Unavailable Pedro Bain MD Unavailable Unavailable Pedro Bain MD Unavailable Unavailable Pedro Bain MD Unavailable Unavailable Pedro Bain MD Unavailable Unavailable Pedro Bain MD Unavailable Unavailable Pedro Bain MD Unavailable Unavailable Pdero Bain MD Unavailable Unavailable Pedro Bain MD Unavailable Unavailable Pedro Bain MD Unavailable Unavailable Pedro Bain MD Unavailable Unavailable Pedro Bain MD Unavailable Unavailable Pedro Bain MD Unavailable Unavailable Pedro Bain MD Unavailable Unavailable Vallandigham, D Anyi CNM Unavailable Unavailabl e Vallandigham, D Anyi CNM Unavailable Unavailabl e Vallandigham, D Anyi CNM Unavailable Unavailabl e Vallandigham, D Anyi CNM Unavailable Unavailabl e Vallandigham, D Anyi CNM Unavailable Unavailabl e Vallandigham, D Anyi CNM Unavailable Unavailabl e Vallandigham, D Anyi CNM Unavailable Unavailabl e Vallandigham, D Anyi CNM Unavailable Unavailabl e Vallandigham, D Anyi CNM Unavailable Unavailabl e Vallandigham, D Anyi CNM Unavailable Unavailabl e Vallandigham, D Anyi CNM Unavailable Unavailabl e Vallandigham, D Anyi CNM Unavailable Unavailabl e Vallandigham, D Anyi CNM Unavailable Unavailabl e Vallandigham, D Anyi CNM Unavailable Unavailabl e Vallandigham, D Anyi CNM Unavailable Unavailabl e Vallandigham, D Anyi CNM Unavailable Unavailabl e Vallandigham, D Anyi CNM Unavailable Unavailabl e Vallandigham, D Anyi CNM Unavailable Unavailabl e Vallandigham, D Anyi CNM Unavailable Unavailabl e Vallandigham, D Anyi CNM Unavailable Unavailabl e Vallandigham, D Anyi CNM Unavailable Unavailabl e Vallandigham, D Anyi CNM Unavailable Unavailabl e Vallandigham, D Anyi CNM Unavailable Unavailabl e Vallandigham, D Anyi CNM Unavailable Unavailabl e Vallandigham, D Anyi CNM Unavailable UnavailMarquita Lopez JR, MD Unavailable Unavailable NOSOVIMarquita QUINTANILLA JR, MD Unavailable Unavailable NOSOVIMarquita QUINTANILLA JR, MD Unavailable Unavailable NOSOVIMarquita QUINTANILLA JR, MD Unavailable Unavailable NOSOVIMarquita QUINTANILLA JR, MD Unavailable Unavailable NOSOVIMarquita QUINTANILLA JR, MD Unavailable Unavailable NOSOVIMarquita QUINTANILLA JR, MD Unavailable Unavailable NOSOVIMarquita QUINTANILLA JR, MD Unavailable Unavailable NOSOVIMarquita QUINTANILLA JR, MD Unavailable Unavailable NOSOVIMarquita QUINTANILLA JR, MD Unavailable Unavailable NOSOVIMarquita QUINTANILLA JR, MD Unavailable Unavailable NOSOVIMarquita QUINTANILLA JR, MD Unavailable Unavailable NOSOVIMarquita QUINTANILLA JR, MD Unavailable Unavailable NOSOVIMarquita QUINTANILLA JR, MD Unavailable Unavailable Marquita SALMON JR, MD Unavailable Unavailable NOSOVIMarquita QUINTANILLA JR, MD Unavailable Unavailable Marquita SALMON JR, MD Unavailable Unavailable NOSOVIMarquita QUINTANILLA JR, MD Unavailable Unavailable NOSMarquita GIRON JR, MD Unavailable Unavailable NOSMarquita GIRON JR, MD Unavailable Unavailable NOSOVIMarquita QUINTANILLA JR, MD Unavailable Unavailable Marquita SALMON JR, MD Unavailable Unavailable NOSOVIMarquita QUINTANILLA JR, MD Unavailable Unavailable Marquita SALMON JR, MD Unavailable Unavailable NOSOVIMarquita QUINTANILLA JR, MD Unavailable Unavailable NOSOVIMarquita QUINTANILLA JR, MD Unavailable Unavailable NOSMarquita GIRON JR, MD Unavailable Unavailable NOSOVIMarquita QUINTANILLA JR, MD Unavailable Unavailable Rhett BLACKWELL MD ([place]) Unavailable Unavailab Rhett Blake MD ([place]) Unavailable Unavailab le RISHI ([place]), Rhett WATSON MD Unavailable Unavailab le RISHI ([place]), Rhett WATSON MD Unavailable Unavailab le RISHI ([place]), Rhett WATSON MD Unavailable Unavailab le RISHI ([place]), Rhett WATSON MD Unavailable Unavailab le RISHI ([place]), Rhett WATSON MD Unavailable Unavailab le RISHI ([place]), Rhett WATSON MD Unavailable Unavailab le RISHI ([place]), Rhett WATSON MD Unavailable Unavailab le RISHI ([place]), Rhett WATSON MD Unavailable Unavailab le RISHI ([place]), Rhett WATSON MD Unavailable Unavailab le RISHI ([place]), Rhett WATSON MD Unavailable Unavailab le RISHI ([place]), Rhett WATSON MD Unavailable Unavailab le RISHI ([place]), Rhett WATSON MD Unavailable Unavailab le RISHI ([place]), Rhett WATSON MD Unavailable Unavailab le RISHI ([place]), Rhett WATSON MD Unavailable Unavailab le RISHI ([place]), Rhett WATSON MD Unavailable Unavailab le RISHI ([place]), Rhett WATSON MD Unavailable Unavailab le RISHI ([place]), Rhett WATSON MD Unavailable Unavailab le RISHI ([place]), Rhett WATSON MD Unavailable Unavailab le RISHI ([place]), Rhett WATSON MD Unavailable Unavailab le RISHI ([place]), Rhett WATSON MD Unavailable Unavailab le RISHI ([place]), Rhett WATSON MD Unavailable Unavailab le RISHI ([place]), Rhett WATSON MD Unavailable Unavailab le RISHI ([place]), Rhett WATSON MD Unavailable Unavailab le RISHI ([place]), Rhett WATSON MD Unavailable Unavailab le RISHI ([place]), Rhett WATSON MD Unavailable Unavailab le RISHI ([place]), Rhett WATSON MD Unavailable Unavailab le RISHI ([place]), Rhett WATSON MD Unavailable Unavailab le RISHI ([place]), Rhett WATSON MD Unavailable Unavailab le RISHI ([place]), Rhett WATSON MD Unavailable Unavailab le RISHI ([place]), Rhett WATSON MD Unavailable Unavailab le RISHI ([place]), Rhett WATSON MD Unavailable Unavailab le RISHI ([place]), Rhett WATSON MD Unavailable Unavailab le RISHI ([place]), Rhett WATSON MD Unavailable Unavailab le RISHI ([place]), Rhett WATSON MD Unavailable Unavailab le RISHI ([place]), Rhett WATSON MD Unavailable Unavailab le RISHI ([place]), Rhett WATSON MD Unavailable Unavailab le RISHI ([place]), Rhett WATSON MD Unavailable Unavailab le RISHI ([place]), Rhett WATSON MD Unavailable Unavailab le RISHI ([place]), Rhtet WATSON MD Unavailable Unavailab le RISHI ([place]), Rhett WATSON MD Unavailable Unavailab le RISHI ([place]), Rhett WATSON MD Unavailable Unavailab le RISHI ([place]), Rhett WATSON MD Unavailable Unavailab le RISHI ([place]), Rhett WATSON MD Unavailable Unavailab le RISHI ([place]), Rhett WATSON MD Unavailable Unavailab le RISHI ([place]), Rhett WATSON MD Unavailable Unavailab le RISHI ([place]), Rhett WATSON MD Unavailable Unavailab le RISHI ([place]), Rhett WATSON MD Unavailable Unavailab le RISHI ([place]), Rhett WATSON MD Unavailable Unavailab le RISHI ([place]), Rhett WATSON MD Unavailable Unavailab le RISHI ([place]), Rhett WATSON MD Unavailable Unavailab le RISHI ([place]), Rhett WATSON MD Unavailable Unavailab le RISHI ([place]), Rhett WATSON MD Unavailable Unavailab le RISHI ([place]), Rhett WATSON MD Unavailable Unavailab le RISHI ([place]), Rhett WATSON MD Unavailable Unavailab le RISHI ([place]), Rhett WATSON MD Unavailable Unavailab le RISHI ([place]), Rhett WATSON MD Unavailable Unavailab le RISHI ([place]), Rhett WATSON MD Unavailable Unavailab le RISHI ([place]), Rhett WATSON MD Unavailable Unavailab le RISHI ([place]), Rhett WATSON MD Unavailable Unavailab le RISHI ([place]), Rhett WATSON MD Unavailable Unavailab le RISHI ([place]), Rhett WATSON MD Unavailable Unavailab le RISHI ([place]), Rhett WATSON MD Unavailable Unavailab le RISHI ([place]), Rhett WATSON MD Unavailable Unavailab le RISHI ([place]), Rhett WATSON MD Unavailable Unavailab le RISHI ([place]), Rhett WATSON MD Unavailable Unavailab le RISHI ([place]), Rhett WATSON MD Unavailable Unavailab le RISHI ([place]), Rhett WATSON MD Unavailable Unavailab le RISHI ([place]), Rhett WATSON MD Unavailable Unavailab le RISHI ([place]), Rhett WATSON MD Unavailable Unavailab le RISHI ([place]), Rhett WATSON MD Unavailable Unavailab le RISHI ([place]), Rhett WATSON MD Unavailable Unavailab le RISHI ([place]), Rhett WATSON MD Unavailable Unavailab le RISHI ([place]), Rhett WATSON MD Unavailable Unavailab le RISHI ([place]), Rhett WATSON MD Unavailable Unavailab le RISHI ([place]), Rhett WATSON MD Unavailable Unavailab le RISHI ([place]), Rhett WATSON MD Unavailable Unavailab le RISHI ([place]), Rhett WATSON MD Unavailable Unavailab le RISHI ([place]), Rhett WATSON MD Unavailable Unavailab le RISHI ([place]), Rhett WATSON MD Unavailable Unavailab le RISHI ([place]), Rhett WATSON MD Unavailable Unavailab le RISHI ([place]), Rhett WATSON MD Unavailable Unavailab le RISHI ([place]), Rhett WATSON MD Unavailable Unavailab le RISHI ([place]), Rhett WATSON MD Unavailable Unavailab le RISHI ([place]), Rhett WATSON MD Unavailable Unavailab le RISHI ([place]), Rhett WATSON MD Unavailable Unavailab le RISHI ([place]), Rhett WATSON MD Unavailable Unavailab le RISHI ([place]), Rhett WATSON MD Unavailable Unavailab le RISHI ([place]), Rhett WATSON MD Unavailable Unavailab le RISHI ([place]), Rhett WATSON MD Unavailable Unavailab le RISHI ([place]), Rhett WATSON MD Unavailable Unavailab le RISHI ([place]), Rhett WATSON MD Unavailable Unavailab le Farrell, Donna CHILD CARE COORDINATOR Unavailable Unavailable Farrell, Donna CHILD CARE COORDINATOR Unavailable Unavailable Farrell, Donna CHILD CARE COORDINATOR Unavailable Unavailable Farrell, Donna CHILD CARE COORDINATOR Unavailable Unavailable Farrell, Donna CHILD CARE COORDINATOR Unavailable Unavailable Farrell, Odnna CHILD CARE COORDINATOR Unavailable Unavailable Farrell, Donna CHILD CARE COORDINATOR Unavailable Unavailable Farrell, Donna CHILD CARE COORDINATOR Unavailable Unavailable Farrell, Donna CHILD CARE COORDINATOR Unavailable Unavailable Farrell, Donna CHILD CARE COORDINATOR Unavailable Unavailable Farrell, Donna CHILD CARE COORDINATOR Unavailable Unavailable Re-disclosure Warning The records that you are about to access may contain information from federally-assisted alcohol or drug abuse programs. If such information is present, then the following federally mandated warning applies: This information has been disclosed to you from records protected by federal confidentiality rules (42 CFR part 2). The federal rules prohibit you from making any further disclosure of this information unless further disclosure is expressly permitted by the written consent of the person to whom it pertains or as otherwise permitted by 42 CFR part 2. A general authorization for the release of medical or other information is NOT sufficient for this purpose. The Federal rules restrict any use of the information to criminally investigate or prosecute any alcohol or drug abuse patient.The records that you are about to access may contain highly sensitive health information, the redisclosure of which is protected by Article 27-F of the [facility] Public Health law. If you continue you may have access to information: Regarding HIV / AIDS; Provided by facilities licensed or operated by the [facility] Office of Mental Health; or Provided by the [facility] Office for People With Developmental Disabilities. If such information is present, then the following [facility] mandated warning applies: This information has been disclosed to you from confidential records which are protected by state law. State law prohibits you from making any further disclosure of this information without the specific written consent of the person to whom it pertains, or as otherwise permitted by law. Any unauthorized further disclosure in violation of state law may result in a fine or long term sentence or both. A general authorization for the release of medical or other information is NOT sufficient authorization for further disc losure. Allergies and Adverse Reactions Type Description Substance Reaction Status Data Source(s ) Drug Class NO KNOWN ALLERGIES NO KNOWN ALLERGIES [facility] Pollen Pollen Pollen Unknown Active eCW1 (Replaced by [facility]) peanuts peanuts peanuts hives, itchy throat Active eCW1 ([facility]) Pollen Pollen Pollen Unknown Active eCW1 (Replaced by [facility]) Drug Allergy NKDA NKDA MEDENT ([facility], [facility]) Family History Family Member Name Family Member Gender Family Member Status Date o f Status Description Data Source(s) Unknown Unknown Problem MEDENT ([facility]) mother Unknown Unknown Problem [facility]ENT ([facility]) Encounters Encounter Providers Location Date Indications Data Source(s ) Outpatient Attender: Donna dugan 04/12/2020 02:15:00 PM EST [facility]ENT ([facility]) Attender: SHIRLEY MARKS) MDReferrer: Savanah Bain MD 02/27/2020 08:20:12 PM EST [facility] ( [facility]) [facility] [address] [place] [address] 01/29/2020 12:00:00 AM EST eCW1 ([facility]) Attender: SHIRLEY MARKS) MDReferrer: Savanah Bain MD 01/08/2020 08:20:10 PM EDT [facility] Attender: CURTIS SALMON JRReferrer: [id number] 10/30/2019 12:00:00 AM EDT - 10/30/2019 01:22:26 PM ED T Maternal care for other known or suspected poor growth, second trimester, fetus 1 [facility] Maternal care for other known or suspect ed poor growth, second trimester, fetus 1 Outpatient 10/30/2019 12:00:00 AM EDT [facility] Outpatient Attender: ZITA GATESReferrer: Anyiparesh jansen [facility] 10/30/2019 12:00:00 AM EDT [facility] ( ESTOB) [facility] Est OB [address] [place] [address] 10/11/2019 12:00:00 AM EDT eCW1 ([facility]) ( ESTOB) [facility] Est OB [address] [place] [address] 10/04/2019 12:00:00 AM EDT eCW1 ([facility]) Outpatient 09/20/2019 04:59:00 AM EDT [facility] ( ESTOB) [facility] Est OB [address] [place] [address] 09/12/2019 12:00:00 AM EDT eCW1 ([facility]) Outpatient 09/07/2019 05:39:00 AM EDT [facility] Attender: SHIRLEY MARKS) MDReferrer: Savanah Bain MD 09/01/2019 08:20:06 PM EDT [facility] Attender: SHIRLEY MARKS) MDReferrer: Savanah Bain MD 08/31/2019 08:20:06 PM EDT [facility] Outpatient [facility] 08/29/2019 07:38:26 PM EDT [facility] Unknown [address] [facility] [address] 08/29/2019 12:00:00 AM EDT eCW1 ([facility]) Unknown [address] [facility] [address] 08/25/2019 12:00:00 AM EDT eCW1 ([facility]) Unknown [address] [facility] [address] 08/25/2019 12:00:00 AM EDT eCW1 ([facility]) Unknown [address] [facility] [address] 08/25/2019 12:00:00 AM EDT eCW1 ([facility]) Outpatient 08/22/2019 05:08:00 AM EDT [facility] [address] [place] [address] 08/11/2019 12:00:00 AM EDT eCW1 ([facility]) [facility] [address] [place] [address] 07/26/2019 12:00:00 AM EDT eCW1 ([facility]) [facility] [address] [place] [address] 07/18/2019 12:00:00 AM EDT eCW1 ([facility]) [facility] [address] [place] [address] 07/12/2019 12:00:00 AM EDT eCW1 ([facility]) Outpatient [facility] 04/14/2019 10:43:01 AM EST [facility] Attender: SHIRLEY MARKS) MDReferrer: Savanah Bain MD 03/30/2019 08:20:01 PM EST [facility] Medications Medication Brand Name Start Date Product Form Dose Route Admi nistrative Instructions Pharmacy Instructions Status Indications Reaction Description Data Source(s) Sprintec 28 0.25-35 MG-MCG Sprintec 28 0.25-35 MG-MCG 2019 12:00:00 AM EST 1.0 {tablet} active Sprintec 28 0.25-35 MG-MCG eCW1 ([facility]) Sprintec 28 0.25-35 MG-MCG Sprintec 28 0.25-35 MG-MCG 2019 12:00:00 AM EST 1.0 {tablet} active Sprintec 28 0.25-35 MG-MCG eCW1 ([facility]) Cyclobenzaprine hydrochloride 10 MG Oral Tablet Cyclob enzaprine HCl 10 MG Cyclobenzaprine HCl 10 MG 10/04/2019 12:00:00 AM EDT 1.0 {tablet_at_bedtime_as_needed} suspended Cyclobenzaprine HCl 10 MG eCW1 ([facility]) Cyclobenzaprine hydrochloride 10 MG Oral Tablet Cyclob enzaprine HCl 10 MG Cyclobenzaprine HCl 10 MG 10/04/2019 12:00:00 AM EDT 1.0 {tablet_at_bedtime_as_needed} active Cy clobenzaprine HCl 10 MG eCW1 ([facility]) Cyclobenzaprine hydrochloride 10 MG Oral Tablet Cyclob enzaprine HCl 10 MG Cyclobenzaprine HCl 10 MG 10/04/2019 12:00:00 AM EDT 1.0 {tablet_at_bedtime_as_needed} active Cy clobenzaprine HCl 10 MG eCW1 ([facility]) Cyclobenzaprine hydrochloride 10 MG Oral Tablet Cyclob enzaprine HCl 10 MG Cyclobenzaprine HCl 10 MG 10/04/2019 12:00:00 AM EDT 1.0 {tablet_at_bedtime_as_needed} suspended Cyclobenzaprine HCl 10 MG eCW1 ([facility]) 0.15-0.03 mg 05/03/2019 12:00:00 AM EST tablet 84 TAKE ONE TABLET BY MOUTH EVERY DAY TAKE ONE TABLET BY MOUTH EVERY DAY SOLD: 05/04/2019 [facility] 20 mg 03/23/2019 12:00:00 AM EST tablet 10 TAKE TWO TABLETS BY MOUTH EVERY MORNING FOR 5 DAYS TAKE TWO TABLETS BY MOUTH EVERY MORNING FOR 5 DAYS [facility] benzonatate 200 MG Oral Capsule BENZONATATE 03/23/2019 12:00:00 AM EST capsule 15 TAKE ONE CAPSULE BY MOUTH THREE TIMES A DAY FOR 5 DAYS TAKE ONE CAPSULE BY MOUTH THREE TIMES A DAY FOR 5 DAYS SOLD: 03/23/2019 [facility] 137 mcg (0.1 %) 03/23/2019 12:00:00 AM EST aerosol,spray 30 SPRAY ONE TO TWO SPRAYS IN EACH NOSTRIL TWO TIMES A DAY FOR 10 DAYS SPRAY ONE TO TWO SPRAYS IN EACH NOSTRIL TWO TIMES A DAY FOR 10 DAYS SOLD: 03/23/2019 [facility] Insurance Providers Payer name Policy type / Coverage type Policy ID Covered green party ID Covered green party's relationship to luz Policy Luz Plan Information [facility] [id number] SP [id number] SELF PAY ONLY [id number] SP [id number] PLAN [id number] [place]ICA[place] [id number] [facility] O [id number] S [id number] [facility] PLAN [facility] [id number] SP [id number] [facility] I [id number] Self [id number] Self Pay P none S none [facility] PLAN XIX [id number] [facility] [id number] [facility] [id number] [facility] Health Maintenance Organization (HMO) [id number] Self [id number] BCBS CHILD HEALTH PLUS [id number] SP [id number] [facility] COMMUNITY PLAN [id number] [place]ICAID [place] [id number] MEDICAID M [id number] MEDICAID [id number] SP [id number] MEDICAID [id number] SP [id number] EXCELLUS [employer]BS B [id number] S [id number] [facility] [employer] Health Maintenance Organization (HMO) [id number] Self [id number] BS [employer] Health Maintenance Organization (HMO) [id number] Self [id number] [employer] CHILD HEALTH PLUS [id number] SP [id number] HMO BLUE [id number] SP [id number] BS [employer] (HMO) [id number] Self [id number] BS [employer] (HMO) Self BS [employer] (HMO) Self Problems, Conditions, and Diagnoses Code Display Name Description Problem Type Effective Dates Data Source(s) K50.90 Crohn disease Crohn disease Problem 08/25/2019 12:00:00 AM EDT eCW1 ([facility]) K50.90 Crohns disease Crohns disease Problem 08/25/2019 12:00: 00 AM EDT eCW1 ([facility]) Z34.80 care Supervision of other normal P roblem 07/10/2019 12:00:00 AM EDT eCW1 ([facility]) Z34.80 care Supervision of other normal P roblem 07/10/2019 12:00:00 AM EDT eCW1 ([facility]) O36.5921 Maternal care for other know n or suspected poor growth, second trimester, fetus 1 Maternal care for other known or suspect ed poor growth, second trimester, fetus 1 Diagnosis 10/30/2019 10:00:02 AM EDT [facility] Surgeries/Procedures Procedure Description Date Indications Data Source(s) NONSTRESS TEST 10/11/2019 12:00:00 AM EDT eCW1 ([facility]) SUBSEQUENT CARE VISIT 08/11/2019 12:00:00 AM EDT eCW1 ([facility]) OB Visit 07/12/2019 12:00:00 AM EDT e CW1 ([facility]) Results ID Date Data Source [id number] 04/02/2020 12:00:00 AM EST [facility] Name Value Range Interpretation Code Description Data Mayi rce(s) Supporting Document(s) SARS-CoV-2 (COVID-19) RNA [Presence] in Respiratory specimen by RACHANA with probe detection Not Detected [facility] This lab was ordered by [facility] and reported by [email or web address] ID Date Data Source [id number] 02/27/2020 09:15:00 AM EST [facility] Name Value Range Interpretation Code Description Data Mayi rce(s) Supporting Document(s) Follow Up [facility] TDELUt2xUiJSCjStUCAqFhqELGtlWBfdZODbQ8K8BVdlXh9SHYbsjqLuHXJpVi3+TYKhEQ2upj8gSPFh gMy [file] 54LaZ3J8K9ry9GisBLfuDmwsgrDxuR9YtwShNMj+fzuT7S6DOXCoQhokmZIb+belt fixer/FfRNfL1RQlxJuC7D [file] +glass loading equipment tender/TBk4S+3LXaRDQQY2ryKOr3i2B/gNDuHUW60VLFdLUl8L0gu4F0lrWjbc288KlRhG1N9+1vLAO9a LH4N+PRS6Wd8YyUJ0xj7BrDEi/r/FQMdJW/xymVqhtRXmiGMmaMgTY3wwTm5aok082KtOjZLNKbx70eG dWIXoVhntkiqGltteVa/U3dldnImejx1HX1oJkO89X fpN5o/LTZjTD/F8LiNw4YIxSZcFe7Ryep3TnF4juJruSFdQcD49bRQP75wbtirdwYb6lWhp/qreNBol9 Ap0ZAD0ahCHv166xuhIBtEFjgDETEFrv+wF9RKzfZMFTsl/rDz5lEiR+SqglU7iIEnnz3T/KjD9k6yQ9 tyK9damRn9OECr1VGP1vvHOHUea5g7kmER+AKo+ua0 6d+0xD3zm4DETvI7g2LrZrad0bot7D6Wa/qv3KcPb9pG799UOHjeM+GlYoh7ARUhs15ou7jGXYAJCEVT yXCIYtpzuyOyrjJPh1D7Bd2pWvG2aRFxxunezBfe3+ottXDNwVE79vIX4ZpFrKqNi2jsF/Lw1fxqwBt8 kYl8WqeZRRha2sYdaEB/e+lkmI4YZuJdsr4GB57RMx ax1xLmhSWMqaj36B1xI0YNpBPqmdYmWYfpqTBu7+Rlupm6R795oF45Q5lozyaD7OM+fcKOfcKvmWjhx/ rt9k6Z3f3WmtN4i3+MqvnU2NpjkWwjbknrjUkh+2RS0o4P5ARUH20zRFjKqMcO/vv/JwT50RLVgGYubH zPjurre1NQJuNzgLRy7NqHGArWUhGAj7Tp8FEWI7uO mVozFeJaVHSPUKNPfK1ljaX0NanbL8dQgq1qqtfQqg0ILh/4pUkmkAOHKlRV8QS6rXeDISeFrS1243zI 9JCY2HOnoxveyXchqrHrhTFauDfjKwTQYRR+NizUyly2Ds6iKFVdGwgO/9Pv/uJg2ibp9LHufu5JIbln lb8AHxU5yqFnj1POVSBnczcdoJVr/e/X9iHqkx87Qj X9CGwAVhyS2lU7rHivf/XcHrqTw1/oBPVrkSr7YZlFkLgB4+G96OJhvx9peiH4r3zkY22cXKIbhbr0/N whitfield+j6deWuCFuwBYPsecIL3zsZvOp2jTDYXb+iBWW8jjKSnxEyb6B+Vi0LPRULVj2cXlx9djj1lnkSOlY [file] Shop Superintendent/DInWL3JWn6JDvO0cyjuA3EoZzXEXGIMd1JS/ZjJCgq2/J4n2rENXwXUJ+47zFK/TnUpyEytx3zB0 [file] 5KDa4TIwkaso9THUujhpGs2xEYCJjAbZX9GO+chDuz6uPvNtr3blFN9jRKKqINUVGBrkPqC7Ph8HS/CHILD CARE COORDINATOR [file] vbXKamIZYK+Z+WELDER FITTER+zt5yfsBsDiNpwvF+pLYnQjo0lV [file] HrWKnP0cS3bTT8rPJgjzCvkMTBLB6qvxVtFqve22Pi9BYo5rmykNs02N7r/rodríguez+Q/SFnLUWQBzXqB/Bz8 [file] 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/EOYn9nzya3zAB6whn+Wxq29r03l4IQGWQWpCp7V [file] [facility]+Du+yum/PNy3Wa8kLE7uBLruI3Ln1guswZMUuNkXm+QDObto5ZlaTfX+kb8NbhJA9EriGmXIHUcZv [file] LGrrNrstNq6mEUSmsranTlKA0KK+Snt2DGgxL1QuPcrIJf4f+Mattress Maker/pukfmz7uDn8c5hubeRAw2cvr9n1M [file] R0VZa93/CI9a8810qt0G95ISQpcyv1V3Nq7dR1uXii seUVDqtRnfeKqMjovReLKYch/DVd7GbmPphw50aCEg0gEWT9nwC5JzobUrwfaws9EKJEWk9qU0mGZxxL dLW57Zi8LiZvy7qxKQVTEq12aQ9ukwi5k6OI5EN8a4s+sK/zzHvuuPzZmwAl283GNF6yugEDkdVwaPWa PGwXp+UFX0//MmTYbGcXUA8ivcvQHgAfMyh6wNA9xo kHkYgqe1RE8sbmlk9Md0P1Ybe/+f3d7LhpLXiTcE7LNC+6AeHeioBJpzWFSdpckHEG6DN8+JY3PfUP+a i6w4AlfXRf/Ud7FubMvm4Ow2ekCQRUcIoSdF/dopsvUNmnHzEPA9UDr9omLewzUmBpKMGqSe9bHyPUlD 3bV/vRPVYW+zIQygWZLvJCgtW5hEYgV+Q0memno26u kh1dEFFmW5xHQ7R4CD9Z5GAxIhbXJ0SYj4+u1w4njxEUbkcuh+6Eo6l76/AXjNe1KRymgpy1fvIbk/x1 gcA8ToNn8CO3yYmGpTNpcCM1/+OMn2tAeJiK6tW093idqSlioPEmK7w40XYL0gXDW+nOLhwdiUI/0Phx BGFtaE1o7SggOTjX1tik8j5LG9i359cXHsz8kfS0uP z+Jfm+ilo59h1uWIHhcqi45PLPOFP5D0pDFkSe7OQg90LqC/Rodríguez/97wuGhomP+zdLvqwX/0tCuytUPTSj [file] 4Dy3lrV1kTDX5GvFggu/roving sizer//BeAqVVuoZk93ZAbXePWMskQQASUtJdBEp4ZNiYgfZnXJkSDEAVi3Zq0 [file] NQuBoaaNZP2Q1F+belt fixer/6RGKi45tr5BOZK0xrtHOIi+O [file] f0OFEU9+ZxQe2t0wZMtM15WVrA+AY+WELDER FITTER++6OMBjRom [file] 8gZdcHWDUGXJ7WnFRjdVDsYZRBBW02Q/ZD/SawBHZH ULmK/iHMmrtKxm1I9g2e96p1XR1vwA8owut3SycHtVPiSn2oZKY+eT0iSXaCzWKC3Xak5e05w09ZbmZy 1QYKYocZ55XiY4gedN0dGU51xbLMhucUB6H0RknOp60lrhT+l2uprCz5LDgcdZv+Qlze2MVuz6Hdt1Pe 56SuD2nUMXTB4+XFZC/Vx27PwUB/DBPSII9LQzlVPF H4q8T8k8ckFE8qwzlYk7y2/hhG4Fgyl6usAPz+v6BCKRW/7w0moyyBsero0DtK5vsm48by55sEuoSJZB 63VPcmmkcMigCCWy1FgYveK2jmhdxyVg7d34TxQVI266DFAUwNVD0nj5KO1Aprcm/BUiYdZ9CH7xbev7 VnLpQ/8v1CjMAjlF9IwLGet/8MNTlqvQoIxTHr12x+ YJzFp8HAlIBh1+hCIX+zwAsyVkxImzy7GxWVRb0pSCpBuKVjb4lU6gMUTAsTgSjcN1cmu8NsP7/LtUiY M9gpUR3CSUm8iC3yNBYZc7erpcqIJSOpmjKuOXwE5fc5xCDsDta/BDLHhY6GEJFpznuUQZnZnw8wIrCf MLWMpG/aQxZI51nfe8IANnZ+8P2DUPW6BHZ7UlAPPy LTkyxjttr7mbY9O7YVzgv7/HfkFVv9jk6WafJfJ9GVQTsForPfx+Ijb/5t88oTMJK1ZAgP8gsegwRHjc k+BpnQKXQT0i8uFqVoE/7xs5XuMDtijBFPMkfyFiHLRkwF5mVD1poG7peR25VRy9h5LXys0nnR2pig1C 0/zbW1r33o0rAjPDzuDqLpHnEDkv8ZeSCtw6Zn4SIz p9cjKyDgpznaZ0EuGtX5lZNz1zTnviznu5c9Avnse+N+7DqU9FcwC9nlhGVQM+Xc3+qAER+OMAR+/yCjT 8itPCprKY4UloVPYkwzzbY9vlwyG8spdfri/j+2nY99Q908KphvJu9dRMAtar40slAr2TYwbviBIpHoR phZdTYRWu+QkevEgiIHO7X4SpDqBpfoXUh3dH+SjuN 6drzFbkov7Dki1bw35SMN6glSyxyKYInKm7Ta3zb9mzMI6a1Br6jmTns7dpqLGjgJVp2xzmFMM1HZCHo 9ngkdD9PSIx0u8jLSCQQ2EGtfWLgrfVgVvNg3o+dJyGXc167zjbG6lmZ6etj/b2SuQDDw8/ufLoLDCgu EdV3o5PGcqPUwJsWZjss5HO+RQrlxu5WZW/2A543HK zmmfZ5ogH+4v7B0+wiJsDbFRnZhZAok/PN3tQWV9PfesMFAUJd7a0vHsDy3zrjOBeel/pD5kZ74MzwTt 6UPIsGWE5i72DMDvOZENmluy7Qxk4fQTa27zBkpSxSMfDoMsT6vwMRG8ztz323WtQgSTUn7X1zEXov8k jrl4Nu9+ib1gzgCMnNue6u+BvBkBIZLv6Ap07DBdw0 fCCqV6F+zI8hwoaSSpdwNlDsjtt6Sw6/C+zZBnIvPoN9U7iQjR5sEaBDTJqF02U3TI1+W4J+dkoZsZLy KmYAm9E5SH4VrgKzzsB9Jr6jB8yPnvr+o+/olV7/22F7mQwtVEXH2iWlUrmxcJ9dmFVax+tAsNzstVLJ tbgTyYSFd5Es5wOEIpIbtUyFc8QrIH/wMwCSRhSC9T MSIIdOFzFlTNhc7ZcNu5a2k/iAdXbGEzcxwHGWT+D1Orh3PDP+iMt9g2t3UmTq0cZeBHwRaP4wIZR2Nv fzjCOQFPfbZZQRx4KqXrLiN9EToQlzdmyXiBVcVg/91hodKtIdLlbeAzXS5PCvShBEzwf3ghPtNKmvje n6bxJnnyZSFpq2OTDo9pPK93fJSY+I7VB+H2wLj6Dw YZb38BqW7jmXu8DRpoAY1YuGJNirG0nF8ccFKEbgX6f3w5VkocgQf2Qj/lj+pGu/[facility]/shlDPLQ80LAC [file] 0yeax0yIinhs4y6Z7jT7w9XgbqcweGX/anMl//0gRXoiFLqFvCsIaX+1MktgvF6U5F/Carlos Eduardo/Nwxs36I92 [file] tasha/jkLbwPkJPuT/rffE9/lwWBX0T3ElJTmM9WcClB3 vHlVm83ev2FtlQTjeWbiMpEOD/v+wYWpFw7DqN8+DNwCjyTD22x4uILf+uYy6gf04nxz49aRP1yWAdB6 iNjmv29XaE5KLOEQvhm0CHMDG3csYNGpLEC5An2xdYE4Tr7iUcxWz0HOmjw0e8o0cpP6KLre77DbWavp uTwEWDT5FphB+0sVL3gSX0eZUyjQwGJZ04IzPezTLY WTncV+MpE3XveijvKtKkqFb4vTMqgAlSvZx27ZLI2cpV3i7GQjB961keL8od0vdhudBrYfzCrmMqu+sT gJoaym1TUFJ/6p5uBoVC8XgRcCYLgnXEdJk8GmikgMj0arHwzpRJRn8g+N/X0unsQnh0RRYykL4AFojR LGCeovixLxsJpch4rp8r8FguoN79WFU5p2KO0VI4sn 78I3OxG8oQgq5cPjRgUW5f/ABxQWs4Up6dAWXjUJ9DvUu+CYD2hp+L02nXeTxZhtvkSkXswrx57hn5En x8WGfrArs3ZAkvsmoHLfcbq7a3qlRmtpW7YP00b2cT+a9O3MPAppMQDp08/ClkTkN6G4EsTj9JjokBT5 kOSbm4HBInkhQvI7FPEo2XYWFKqcv/DnkoQ5arMjjR +H1fkqS3Imo4TbBTWZn+RE9kstiCCUwUpr46bXx1Cadh9j1mKnT2caeLfD6cMprXg/OiGsicv8wpi/Ut lfg6siZtUEMyfjlt+IZ+hX422Z1liUkYLMbYyBVzaVky3S74IuMPmrGMqkXQ0uqDNR1EQcYmJ+zHVsbC VMtvgd+t6CGPpYOKY409ry/DRlgHxw5veXE3kjteWo GzA4STM8VhkForl672SHgCkNCAvJniWFxvXqkU001AArDzyULjaBG6iP4vYsgjZXUQ5+o23eZDt+jycw 4aPgo13fbO+ZiV7bcv+oNZAj4u/rodríguez+aJmQ7oQQD88FcVKjKOFa71Ct/pxPCj0mVokuy9OLiB2FBf+ijh [file] iYzT+xq44knE6lGAStabtkvk1i+hiZgRiRxvC7QV3EQ3oyUGt1SHIq3BBRxFYXbeusTGjEHDhf4h1/belt fixer [file] qV70ww0b1ECHGhz3VJCTkm0jAKXK0R3wz6kxKeBeVUsRjiXekvqN/ARCHITECTURAL ASSOCIATE+qdSX6OV7clAScmHBexh8iHs [file] 6AX6YNUmYNouUGBBK/vHsYWhRGQ2QkG3FmwlVKj/rodríguez Yusra/byClH9Ut0IyWwSaArgSPryCq5xFqNtcP3H3SxZn5bd9yOxac5f9xelB/kT9M1SLsMGwBOkq2Fd3 [file] CARLOS EDUARDO+r6Tj2xluAzA2NjteN/59gajn2dgP8yB70jCInP6bJti4MrvzlMByztqi73rdX/hUJVawH53MUFah QT/nH//XmXEfX8uMa0oNPFDKteSu08WiWdKLroZqlmyF1MywrHImHEkTukgf4nTa9hRvCEvVRfc3m7Y/ 58ldL4HneF9af2WEquNfMDBQHTO5RxGLM05h/eaLqo 6ytqoJo0+UNk+JgI5dlZSOtpXVeGJZR+HhPmWtNoVOZ6EjaL25ZFdJWHdV5bkBnNJcoqssvr0O9Mhyka srFS8jPgRR3fwrcycIPTQ+EZsv5U4T6XQVcmkMc8I7nmDhWNLkxyDDk9lsPZXlx558zpJAMBhMruzT9C L2FVoiVgD0o/Xypq6u1bxfjRjmaziF/bS2h4k0QZsp +Ya8i+OzBFjtKyTjYhd7jHFwzu3KjqgRvoEL9Uv/FsT2j6+FAQ96J9vpSYuE8FkSQCfWbeg6IPGTAdAf Wke0QpRvsLXMQITBkOtqFTZEbvGKmgVXltwXi3HH6KcsMSITV7HEla/i+dETk2RK/Gb/Q+oWj2bnWPh9 ue0guULPb1GAbgysfrZLTXI/r1WwZ47RtwjYkN0xlF +XBLf3GyewWuEZrp0uVayG23nC8VNmp01But8MOjbHIWKMrPHHG47/V6HLnJ0QkcEVtkx88q4ijyovR5 gx7a2b2sp9F05brVOrAQS8vADoanwhe68pIZWPshcpCO01b9jz+tpoM4kVsNOLUUcuFIRS+9XNXRwlkp RhkaaCX+LUaacfT5tXVVSIELp67Akdcs4B2EC9qYTb bh2Sln0dTbEQxBsDYOcYZlNg5/2Gws8dFxEEJ149hX0HhNUmpov2J2qoD/FGnjawSxKlePCYwxqgrXDK 5WJ9UNyFb9R5fLx9THRJ6eAfHeQyvA3UlcxZiwL5MTpbHz2YPciA40VjTeZNaoUhuO7hH8XaB3mXBb8j vEj+HegN1sAvgk1/ntiRBDw+Gm2XBTEAgAOiuM9opw STuqY/z15FXMgVp8DSQQw4Awc5A1CP30h55MBBiCNOeReBrdPYFnHDuFwwlUwMNn/Terri/7iff/t3Wl+Z MBpwzAxPrcoxTsi9i26i2oG1gcoD1oSa14ncF/Jhyr8Xt1oL/BtFAEmyNOVMA/ceEuS4vz6+nKXxo7iH 7u7ktyy7TqswdQIqy4MuxrtsXnQCkevaoLih6QB66H [file] pIB1L/nSlNbfk+o5VK5Uwp3gjRoN8F0b+kv/qLB1MHalaVtT26CxYW/barrel assembler+zj1DAndfPOT4kCwlKj5DF [file] QQ9v9tsCch7Ysz35+Mattress Maker+ipzpdeVX/djF24zS42Woo0 AvOfVZDbIsBGCnompy3yTL+Ya+chXtbMANt6UwnuTIRqOjr7AYCNskypXZW607jrYmT2bHjLIjy6l3e9 wxh7+zLF6i6/CP9Ls4LLt0KGH1fsATY/BOUi7wyqYUza+uHRhzG2un3+RCG9L3aTNaKS34wknBi54t+A JtMVMGceXv8H9MSgyTBy5Lx0WI49aGroDTF8jZ59SD qv7phNhsLu/Moccasin Sewer+Dd1Z5NqdtvHy47x1Ef36Bfq6GSe6Rz/v6H/lZLkkkBumxYuRrp0ZndriHEWCXjU7s [file] Mattress Maker+0pkMM9tGr3nk0IChGDt2g/TnopPTl8+kgaxmSUQ [file] 0Zz5wi70nNg89o5GAnnHGy5w7pt72Rk+kp9u38ZK8I r7lvGEhu/l26+T+asjSCMs/qRBnmrsB5T2OfNkDVo/KDXpbLkBBi7UmRgh2g+m7Ur6y+VwvPaG5UjI8p 3IfhaZGuSPHi9PNe4Sw5xdcP+9T97ZtOWs30HOMaIJu/06otgeQ5smv63U7/nfswVdewf0bk/AWeAb2i R9XN58QlNG28unSLIhibQH/wH7pQVGdR/pkcb7/xbz qgYH24Z+nW1KyN/q4zW3/7BsB09mOZFSCuksVAODLR0pAC28RxrvPjYoquwANZ8ugFMShnmPDz3npIOR zHNUTCgkLohcgIq7mT6M623i10dgyFb6PEPwB6cdijpOojqOdbfUm1C2smonUhxm7kWexfcz8Sd5mRhg tJWDnmTflEMkRMeOY316yfAevg6qve4L+7tFgaD9Za VOWWByQgiedYOHnzcEJPlTjRmbII3eZQe1MC2ImiXV6Z1R5LJA+health education coordinator+5/lwnSv/rclSPzOA7ALFo4ASK [file] 1gycycg2Ar+nelXbJEVa+WELDER FITTER/7sN3EAB3C5HwrtyiH4nWMd4+ooNeSCyYPOvHj3ajKg3wxPFGXA6MV30X [file] JGhx7H0oqyLs9Wy0crHpyB2+o59S82JI7GOWsLJ9pcq0BkITwYZmJ160wnhsmkSHt2Dwbq5kyqrSC+belt fixer [file] DtGZbJWq6q11ieensaWNRa7qvs+4LnFHM8U3eCtMPnoujJxim3vEfIsh9KiaWmYtv/vp corporate development/hRDNzi3awsD [file] 3xbKrz/W42Mfpaxl6hIA6G17ZIB24iEu/jLequOzZ/CHILD CARE COORDINATOR+p6kL/Kw84EzQhT9blpSe6sRkjgif3qaCtdH /BkX7s8X6SuJKtwFc2+bapOHkz3H/utF77pMY5ZFiO8BtbtYuamMdMJ66140+Wm0tjy8DyMOjdRFxLaq gfwXAX8hkeIMuTdG5ihnmE2J93bSYf0tj/YoiXNrTQ FCBD67FYw6Qtwp2nUEWZJyTKO9QgqY+7jiz538gxVZ1BcfHy+yaK9uKJbx+XngxDpLAVWxqjRaNh5lpe FG26Bq8Bv7NvZYQVEsxiTT4E0StR/b7jtWkfhgz6ylwT/zd0F2Wkl+vgbedt11gjezb1enWBK73fPo4V 6xsski4k00ZdJG2xLZxTIN+e/0gbKebp8YHDZVsG17 iQWQdorUB04M3u8qcwH9HtkHfkplTs2AFqCjTwA8brYMevgtFG/0QLKGk85m5FkrnCWCl746bSre3wGd amTjV+A4jdm2/zxfY21ydbFob1eLFu1vylhTrwm52+fxyyudsqcUwEOR0mM/EXI58VNNDvw8ERZLE [file] tIyWTvloeRXc9CmJUbFG56pCIqFLl9aJvJggmQPvI2ZbtJZ9EcCiDGW2bNXJI1YEUoYsVRmDiYod+KIRA 7BIxxi9GF0oQqxCym0aytizy75hg8tTXkOVgLC7AEtE9+w6zTZOItMYUINEiZiIGdM20pt3pEY+Jf8VB 8TIuFVOaxjL7Mzu/h3bRpW72nW9ooArOKBeB1mM/cW 9Hi905pZVGJoSj2KenXrcL9PN8S5KbDcjGTBnuMJ04xjPrTHlQYVPvARW3BYQYKtHqnTIczzg70KsV7H VPiA6ghRDAllMwp1UatI2Ztyx46ZmtfGcji238XY4ie0lK6WgxuRg6ALULY2Nz15QsW1jJ1pCMz8OE4t wZays26yKk75kTJMZc3REQYc7kkOEjYFg+R6UR5BJg x9P/c/26YSeDrgLCrE53MqGe8fid8QHdISC4Da6rxGiEGXpVl4hT4SR4U2BUop+C7e4EweSDMSt7CX4T 0YUGqdNL9eGi501HEZ9lG+sXJJyxQoxwlwZqpGCHblRVu4PV+FMjeMnMECII8LVIv1P4MsAGiTcteYu4 zL0hBuBhBy4q9DXBM/DhFgijNnT7wnbceomry8fqvr vVIWkP0BbsIBApZIOsT/oVR3wtalHSZz+dqIHEEOP04VyNgxFEo3haDDAgN5DrH5Mg2zLON2XWfA/gJH byZmw5H5I6IGHySA/sSxdxs9lEMe61/ZDUX/Y+Aj0SFh5zhZjw75hYxj++lm+XJf/mUQ/B+Dun/nhlKi Re7l3zAhku4pdHeh6l3LE/9uo1MLbhatU8BQroJexw EvdXL2bIK7ZlLxyK3JjwBIl8D4XG828ANlguEfwSxx8nd0T6hejznZ4HDklfh3zYXCKmuxk1fx8tNIYM ynBCSOX3kef9u+uRYeW9wGyGdFIVH4lEmC7QdL1xVbbBSAbmNXPjRZtyf1YjNt4PC4+2HzCXPDguiDNV L0/1Cu2tC0jpX4zt0D/ocKa7MR/4aDCRb4ZP5iJgIc 0B8TD9Gmg9eSkDf3D0pjsj8ltbZimTDxHTv/vp corporate development+C7S2OhM8HKif78+FS2xPmftwU/egnkyx0Afgw6udQ [file] 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+aHX2svcpD/ZVK1yjkh67a7w3KASfsppp7b7bsF6xbcFyswaihCvanbqmvP6aKxCQZhB7bgKg1pkBg [file] AFXVppAJKPO8u01DkbwFR/72DNCQm1oZh430TU+machine ii trimmer [file] MEDICAL DRIVER/yRClkIbQJViPU1rDGqdEHEMpizpQuCQ1IUnRLEfNPbAejO7d5JNdYIx2NxF3l57N9TK2hCwab7a [file] Rodríguez+muyhgbQ99kbNe96QLF0rXc5bZAMnHSmT8+tQqJd4MpdZf/VLQTqPYC/y576O214iMqJnG8sV7sffN [file] 78uk4tae6OUMx5wquXdGJCQgK/Beh/half section ironer/4XiCKaa/uXML56aH3RMXO/imOTjXR3s4W4oa5oibf5F8Sw [file] RODRÍGUEZ+roJcDtCa2v4CURINHsx7SbZ7djtla//Rsnkepvzq339Agj2FHt8c6HW4GygLabKKnDkUPkmHVWhUA [file] WFp+5HQeUrRugnCe4p3BPwIyqHwenYPrV8Ga+U+ [file] amxzZptXYiOV1KGqEyLY3oji6OSwL3DNL1lUIwPn9UUyJ0BcQ9AN4GTIAGQ2V= ID Date Data Source [id number] 01/08/2020 08:00:00 AM EDT [facility] Name Value Range Interpretation Code Description Data Mayi rce(s) Supporting Document(s) Follow Up [facility] GBKECh7wIcMHHhSuTXVgKeaEDVpiQPzjIWIoD8X1DXwnDq6DDWumutPiBDQsBc4+TQZjHA5vvh8wCPVp gMy [file] N8e2tukC4kmNl6/KnGRCEjP1z4bshQaIBrHNjV3ha2yKPEoTkRvG+e90VGaPQa6hWDBmy9oEIUPI/Carlos Eduardo [file] HATCHERY HELPER+IAXH+JcAesfjiTO8T7+3z1u0SG9D4Ml6Caq+7Cw60 [file] xuqTIYpBExnsg7HY61jB5Ys9s2m4xP+installer helper+whgSoFn [file] 2/U1ibYPcXCBa/CVGuQasYMy13UTNv8LaK4EfFOPaL2azxi+Patient Svcs Mgr/UVHGbLoJ/e3uWF6rIqqYTGlUTrOpY [file] corporate development [file] 2tZBcDcJkWm1TuhUbfgQmqS9JNy+bO1AkZuPw0ApYfVuXQ8deMz/KSJ6iLCgTKG2RvNWxCSO4aZB/bowling 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 [file] svmgMsCu03xENHB7+Y21Ayrp3TOKJYGbMCbq2a+Julio Cesar /WHAmki1Q8Alga/TtttgplgbSJ7afXCNiMtC/7IHqQDCNlIEnUmAi01hz/Jid9OQ8YCE9YnI4XA8FUwq 6exfSZjUXzZX/Leno+j81nimQNt5aL3M++aT+MWafu49Z8z4B4SHBTcUcquz2lovvEuIAk2fjdXqoZ4To [file] L+XUGJ140W8AH1UMdjaEh+2D80Z3zIvk7vRgqiH [file] vbwUCEaklRezMJsh45XAks1b3IQv0egSWQe8/RODRÍGUEZ/RZxp5RO+6pLCdbGlfN3TAIW5m8SJGIaHSSSHNK5E [file] 4DxM2LvVQ8CQhGIWMnysOW/OgLD4lu+IPhCE4KBq0iwdRJUaPwuekk+9/8rgI7y1QnGBoMv1npKP/García [file] XBwFoWCJUh6NybpbDo84iEZG3CCGcZH9rFtg5oY7xXGgPI9tvkpiIfv2+0LyXRcmTRCS76gWcEs1+SALT LIFTER [file] Maria Teresa/cDcRM16/QIs3aWGpjPxF8/XG9pJBx+Zakpv/fkGgNwlengVGau4Z0Vy6mayT4G+c0+DGlSu8LCdn [file] u9RoMK2DbuxiZVYyG+E9FMnon/3Nmfq5HOpG1R5lwWO/BG+Rodríguez/cEl9zm0rFvchy9kMmZ+wxyqDe7ogLL BhwXuKfVIBfMy10wtXwkM5sxisltpW99SwZe3p+aF449PRnanZehzr28YYCbpStZ3R4Iz9XH1PyVp6Iw 5kpxClPIb/+m623XAwseYvVe+4lYLEWJrl1lKFejG7 fzRnw5NwM3/6RDZtw+xt14HHMt6EHoPd/O4JiNlqmrHiGjIZ4e1bX0PPQOJkxzCiGJ/+Of93e9MIarL9 OA3QThtarv8VLKrdDJZpNaYpA5nLrt4gsiANhUPerC+EAQr2VJosfNRtOfmyUvXa1Ho+XmbliJMxdigb kFx29WOh1fHhas+aLpvZiKzybcnW/J+eOq87KLnjM6 gprVz6S4XMycHUP3/Qt7wPwm/iXwxd2yhnONjMZqaXSQV73p0MaEU/46QgvC1Ru9MhMps3Q0gn5TxhvX y5p30uCyTVaHd3uZQIszQeZup8UV4x97pUhjNke0Y1P3FpvWGkFL/Oy2gocC9gZJzDfYe6+rVKV2ZlOZ xLDuyWqu/sERwZx13IN9a7KY96JeWlpB/aS+vCh+38 FsuWOqV/cF7SpxGolgShFBm3j/tKQr8mBNqLDx2ggkixAlqQ1bcX1vqmzbhlA2v3Ai1EENxX4XiBBDJT T7UPCLExUpx1BadSft9czljCET/diaz+0NvMwpIvIXHBw1R8RUK5wPBsnOfCcvDvY1/uxT1eEoysbnYjJ [file] WUAK+3XAl9sQ8rdCW+XOV1w8pDeGUr4f+Rodríguez+AOWTjl [file] RODRÍGUEZ+yzUtq+YgPqZFL8MGGRlStM7mzDGf2cFjpzj/jQVGO446mE3ISLPKr7gEUZ1fu48zj549+5g0AFZw2 b7o+FmWHO770UlB+Mgx0+YZ3eQ5AFi/Ramonita/i5rkw1F [file] nfCgSpcw5ecsHiPWH9MEnvN5YlWRbWrrObM+r [file] 1whwJOL1rfiZzL2Cfg52JqLymBqFCJL4MbpMLHT/RODRÍGUEZ [file] ew7ifjQstkA8eTTlaLiVt+k3bv2NfaMH2i2FeoKFGuuo8xx128yf1fepTEcI/SURGERY TECH+HWUkzOqpMAPPG5s am0tXVCvRjC9KaLmzfGGi3wlgMlYv8e6p6J1zPvceP dNQ/XXCcZfTbydZJs/j13Jz6vsHK3JVqWLeaJNCT57oe3YljvmPWa44ZKLQ2wtvan4cbXWPyy8FMFwUC 7/Qe1XrWtd1M2cf12fq44Q4Yqo+M22aXh6HG+y/tPUYrmmkt9hK/961MNAxrMYrQB+U977l1nf8WY8n+ 23+VGood2HNcwqaEjocGsG+wuWg/ks4OdFSJpfPi48 0rxqTj90OfX0o4JkpshhD9o0d/zvWs5JnT5pd7jDPg/4bOIW7yO3UwAoBiLPZQaXXVDhAUUa+9UQjJzP PEsgYLbQR4yawRmrvj/Fu6o3f8SuvGO7WIMFyern2RcUlEvf8i7uJW8biHc/EY8L3BSH8dEW2OBeZHkj ugpnRTTKX0RU3t5v9kG7DndSPmJyYALEjptQFoG7uG 1M1MPmoR34ELcrlURPcsS+fq5wNU1ycRrSg8UmvUdrwwIexEIt6m+KTflPpbRKpBMsNb2tRx469iKB4n ZLgIiChhYTCmwJwJyMfGu/nNkKJzjSMJikoxb7lu0lhOcxPWIlMqcKOAhJTsysvM/M/dPmhsOIG/Rivera [file] lGMhXeD4Y/kbHCOq+QuhO+Josué/keRIY4iEYKFwDbyuPyY/LhfTz0Uy8Uw68D/9aDFfa1LmOzG3RX2Gzt [file] AcfnUL2fIeI59WSiapImu/vbg+177UOdzLAZjgYhrRBBXuEB4Sui8zWs/lIGIUyoh0Hdg0lLgJPE/fire lookout [file] r1+i8gP0g4blz/HprB+lJL1XwsVO19dZbXVaDBA8lKEUzA0v/iCjZSFzapbgVUViGr/5ZIjjCBDEG/WELDER FITTER YxYeviiCpgxFXwMddcQerSvGlNTIOArrVhhtXpiBMFUTIpO22GN4XNoBH+CVRP8Z0HG33cojo85SV+VO QUv+Uf5e4xpygDOHRDP9rIn6J4SaU25Ejb1CFr1rgd P2R1UKHgq+TXp9Sbzcqx9iR2/x46k9oSXzt2ykbmC327uVu9RSP78Ecv5/sPl9x+FZZd9xKE6GJy/FXH 0hPHlFuvVM9pwrda0Pj773pSBFqcNHkmfoQ5C7DXa6CX6Ed5CYy7wBk3VtXimBvUgtiRYRJYcAayUkui U1+4b9mVYZONIk6EBskNpNoH2tYvCrSF5yfZFXN4x6 /3ioNQiqUZL+PVw10CCt2X5V+PHktZbFXZcN8CVoL0Ae3o9CRN6Es7gxX47By4y99j9zWW6KfcTddJCo 1RfyB50TmpEvCw1zR/I2fNHznOdyIm4mjsWopt8V/gHAVCtu1og7Cnzvu0qNOoCuaA538X92XaIWkHF2 NMMh3CbouJ+dGomD/VhpddUHYS3I4Clkpbzda71Eu6 iMNf+pLbpPZSU8Csr0m2Dz0cG89woIMM/Kwp4Yj0c85GOxVa1Efv2Swad56Mj+JbsuzpWmvXOrsBCMqI kvZlSHbu0U1Srt9y9GxIRNsuhkC4JcxPIU0TLUdcpAohycZq3e704vg/OwUpPl1Y3CO71q3ijyuWLQoh g2F8B5ZbczHbapa2LLQwdsgQXhwgw9b6vvwj+Nkdku [file] bJN5QnVE/ygMBngPtegrsoeyoFOX7J/bxagyOItwgp ZmmQifmK2kXuk8HfzQ/wRgcqFDHVqSPUkfvYon77TX9yeCxaFtc/aj+K00j+PbcXnZ34V0Fnz7yV8KhS 8yEdEzyl/senior living/ab+IXdJxh0J9h4hYAh4gh4Tb017LQLakiMwKS8eHtgT9smrk5L4BB7hhnxugyCEyz1 [file] +hlVd8dhvDOsgBl4GoU1LBgNDrCqXIwrhXNz1xuXCQu4C9zTBY0w62mgQa5MJOnJ+vp corporate development/0e72S301Oh1T [file] TzCTd140g/pKqxDQd6luavm6wkY6p0Xp/FIRE SPRINKLER APPARATUS INSPECTOR+mkhe8jfjz1IXWyEvlxRm9sb8s5hXZD51bILAjHp/J52 [file] lOX+5KBiF6WxQ4m5R96QBtg86WUYJoG1S70HasY8J1bCK9f/IeHoyCHKMXHLaUiShJU2MMZvb+kinjal/jPy BFPqR/nZ5/S+wBFK2HlZ3ttZcBzo/CdKqcmpgtApLoTq+5Qzb0mdc7eZVhksC7tt1/j9IHLbjaylZcmx lsRmdqsPXTEYGFTk2KpW02GAbLHYNTBOKHggZcNw7L jF4/Du93KeRiyS5jjeIGRFPmL8E+/SO3qwRLBama9PeQetO+na3HIYrUeKk9PQXpdgoA/JpLlXlsYhVx iIGDouvZKEStN2sdjuntKnRRlfObDIBfB12FCv6bAzwJPeRxvoBCx7LHQC+GPoYBuio4LigRvmYXomMu QoXUWLk/PVjBBVpWccE/y/mPX8CwPZpI0NHZeaXpKc fIBSelU7xuaUPa280401DkCB1k+MgNylauM2TteDSeeHgxh/c9Km23iU745uEY/qJjiiAnRrkjXYtYSu Lwz3Ier1T3y2lAPyEX8oUuv4yyXfEmqrv9bHrzoqxrC/NJzH2WLjlXZxw/7JDCTGBugw8RMDdakJQeHA zUq5sdghCOqjfEeKUj4P24eoN3sj329+ZBtG+wC4+X XQzk2fJ6KF9qbG9NouqBu/IE3QE/tscQAzUd0ECVwaw6VVRz0SxtPQcr/kNv7zfUVzRCU5nJpzlSFQNj /Wj+KqvhOsJ+odLv4ovRYzpFO+CFxh8wthEeDHyQ1ipQPb12OxsY/qxe+mfGCyep+ka0yHRS81jxdppL bnkpVdHo/6JL8NE+R+table machine operator+pHM7/mi0tCth+69He0g/ c+o/20/wV32StW2Ew5BM35dS47UW1mFV9N96jMoTXMFMtdcZUYcTP/V5mZh/ZObpiSDCHpSlE+k6IpLm 7k49cHLeRJk5eu+f9XvEBq5ff23gmGgVNnSKt1SKVC8i/snShugmkzK/MRVw6MxU0drENlMOm/v9dDy6 LWAbH6RXrWpL7rjIGyByxkw8jWN5euMDvDVeHvHYAz g6l4LUHfDqoMI6hbpSgPfHi4Xg6xzfCLibtOV6KMS6OZwCHJk426PYgAewVJAveGgLettv5PjawWW99g ymONnwFGvSWLb/2fxOxPPxVmnSkSAkI12x1rcsJPunbCmnly2prLzHIhE5Au1u8ZAe4yY2KOxJd2KqYW qXbp5e8IuqyJZZkSu1DKBIE2lak1RepU5L3YAnVRKU Z7qjht8GDKVJqLbCYP9jaCtXvq3SUO7ZinnF5ITuEsmG4ZmDVKFgJnF+tYr4FUK5FWSljWvyjhM6zYTE CcXV2EmJPqqVMXq8VO0gPST/xNGytlXLjCvOQX/IBJ7eL8uuH4yXQkTicjW4/vVIEDjIYpCAYWPqzSKb R06Hcu0TxdhD1S0c0S7hnxQ95VRhAowuZALjWH8sgO V2kDOy8tiR3zhUIX2/CVx1WSu1vf3QsseHpBoWUiDjc3shkhT4BVzRwb+apUxWadoJy/30VvaIdMp24F vycsHOetLIz8wJSdgMDIsy+RU3+XOJbfGMNL5bggX/HIAWmeLmsY108EZEU5hiUlg4xZsw6D6n2Fz6kZ WqkNcjDz4r+zGg5U5wgEDg34PKDxHUE6Hnx6jmgkTu 9/Brown+ia6+cNKPC1HYovuhi1EZmWzBj0tn/JYp/f/R4A1FW/h+o2NUgfvFMYu9df4ZIwY/KcnaXQaqZ3m [file] BFKXTIisxx/eleBJxw8NPm+pwQdLBQVBYUfJHUWIOe H7TTxrj9902pIj32Xt3uIAgxzmgctuvDLqtfQdK4nMJ6PKxAXwiAl+Y2SxQ86JEEclPfJrfq36R6gZ49 VDF22KT5UBTRnTq2U7Dj17g7LIx3TCKJuzBjSWM/YSOist788yRrcT2V2Nd7R+zrZ5B5oJ7eLcd0vxJH zqlda1Vvv3kv5hUpiydLizKeAjKEAj73CM39ijmUg3 ZPGNZi5EJ/ZBn3JxNqNJNPGrUoKSkD3zmXoXx1kz9ngkEG3VRdKA65tcNmEhXHM88mRJ1IpO5OUtmkn7 s502F0/PAMXpJkNQx5/keCnt6jHyq11cCjm9fWDQQZW5ErQWfqUoD8xrdhXRR6JqHduaDG5/QZk/qK30 3FWg9KpxWptJe2l8BpQ6PjnEA6hYb4onHBYveIt2LF F4Qm8SB8hFtBz3LalDps4nYjx2qmHuf3uQoegX36v1BrL5OrUIQ4XIBgSyLHyDwOrRPHDzlZxobKixEi m83A3rgKwEaBjgK5mN9BIwjYo2nnetDThAN/pK9qBYxow/H67VY42HJ9riEjwM8klJrlctYw1IGt1yAD ubQI/SrWnZVpESvU3amdrn5UKsKwchJcBn+Nf4r0hs tFyxhXdx+QR7FpkXDVpzSeLU8mKYebHMuk7Yr3/GJTHA5KH7WMBj7541ZU3eLX4OijxSEhPZiZt6owQp 3Xcs8J08tZ7Iect2xP/JMuSUjIwq+HXgfAgOtBvCXNA8IuXlXeuuj6i1XSuuB+U79poNJTujfD+6lNpS +BecDTFOzcL5gZFIb5RhsaimSfVp+mMNxxWNu8 [file] [facility]+umVzSZupO5Ti4TumfP45wgA8aLmv9uGJJ4cFRgak7taf+lkKcyMs47dEFTBXZ60NwWcAyG [file] brj/w5nGVespdEpJApuW5lVhxtHsf7YqhXiKbcFw+Rodríguez+7EqjQEUMc/MD/Tr2aEIHT/RCqFQ4TjH3bYU4 [file] b/i6R79JvqAPAMtVlFe7+vm1io5lo1B6tgo0Uqe7Z3QVpX43+7fNFl+t0Fu1qZXQi1II46C0Y/4AR+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 [file] H2vSt7hynsCLR89aloJ/NmbIvi4/iLfjIQMY+Joe+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/sWxedq8cfbUD2FwYs3UWE/dsCCUVfiIwehRo [file] gxmNEb3zuvreBhWE+rodríguez/FOUd6aeTp0YXRDWWE6InFuNvZCL19b+Tf/YSIrhR5mrOVo9yzW26dfkNCI1q [file] 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/xVSM/PDzrr6qMcYfumS7fo9mhISjAiWfVMQwohEfBkB41BjjbFccng2gIvMirbpx0dNw/+aJ0X4q [file] Spanish Linguist/jdzjncu+f0IyTYszu2yAvVe/ugjS/fmrM1Wa6xMDaA3pDCwx5zdk8sq9UvKczrsYXGYGtIfUhxtO PNDtOp9OneNOzTXP1BWFJ5xD1fPGk/G/BKgV/dWjaoiBCOSyeHYEuyAU/ungFnkTWVAt8mwshLoZ/rdn 2MirQ4OyXEGH5TApI4Y+398atAEW/65M6B+1/6j9R+ 0/av9R+4/a/9Jq/wkp/pF/5B/5R/6Rf+S/eGnZbmTo6wTl1VMtn4VgxNnfwgj1IdT8/3P5pvDYm5saKE EjRiBsLE7E18Dzu1ga0CfKrJk4VDGlgP+y6lJaWE/x6rZri8qP+8VpRqQu0yDk9qzLNDdK56SAZKNjy9 Z6AknOLIkd53MdZgaofeJpQZuNtDPlZHRL34RDb4W+ Btmnp+Ilv0fofdK94ulNcphJXk4oajYYxplzS0bmUHIi2XfSFKp44z3K3/p3mJY2PeuSp/LAm8w/mBpT UhyJByG8FVgybcWDvvbAcFkDBue0qrxyAODixxT/7G35ZPBWrteVDC3t91MVLyZdP6Abn7iEw04hNPY5 tfg3xE8qcyg3vZpeKJsoST1OEH3SI5cW+4X0Q0/f8z pgLG6y1xQPZQAF6x7y5JBIaM+RvH1rvdUjtXwxjmUo7Yl4XV/UNPAJxrzHPKnngo49fT8Lt7KOI0YX2R kEGLu121q5/WVCM4LZ5cPM+aX3VX1LEjMo5IJJ2llk5w4OjTByAVAW7c268/Arlin+ESMytvkb3bQ5kRj2y [file] [place] [file] hlL1BxRIbgMoTGczGAKvm9NUrhR8aDNyyuw+S4lJ3SqaWUc4iPoxzi+Agh3lxK3QqZBCtKiBhl+z+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 [file] RODRÍGUEZ+Iv1F49FZSRlgYf/RTbYalfuAyQS+8C4SQEKoy0fp2xyiGCmFlQQLi7wBqdfPODZe8aaGr6Xf37us9 [file] EgGUCFGBtsjtCqrYAbDF9AGaDtXK0iae4WKoM6GMJ8xLQtJq5KUDw9ZTv7Kz9XLMJJV3I= ID Date Data Source WWBC OBS LIMITED US 12/22/2019 01:44:52 PM EDT eCW1 ([facility]) Name Value Range Interpretation Code Description Data Mayi rce(s) Supporting Document(s) WWBC OBS LIMITED US eCW1 ([facility]) ID Date Data Source WWBC BPP W/O NON STRESS TEST 12/22/2019 01:44:16 PM ED T eCW1 ([facility]) Name Value Range Interpretation Code Description Data Mayi rce(s) Supporting Document(s) WWBC BPP W/O NON ST RESS TEST eCW1 ([facility]) ID Date Data Source [id number] 11/09/2019 07:13:17 PM EDT [facility] Name Value Range Interpretation Code Description Data Mayi rce(s) Supporting Document(s) Progress Note [facility] KIPHJj5fKfORFeYc12/HBMdoYJLrt3YpWGmfVZe0VKdgPMBnZ1YoTPC7yI9rEEI5HEkKBrZbDeRkACCz lbm [file] ID Date Data Source Glucose Challenge Test 1 Hour 10/11/2019 05:30:49 AM EDT eCW 1 ([facility]) Name Value Range Interpretation Code Description Data Mayi rce(s) Supporting Document(s) 72 GLUCOSE CHALLENGE TEST 1 HOUR eCW1 ([facility]) ID Date Data Source Type and Screen (D Rh Antibody Screen) 10/11/2019 05:30:44 A M EDT eCW1 ([facility]) Name Value Range Interpretation Code Description Data Mayi rce(s) Supporting Document(s) O POSITIVE BLOOD TYPE eCW1 ([facility]) NEGATIVE AB SCREEN (INDIRECT COOMB S)VIS eCW1 ([facility]) ID Date Data Source CBC - Complete Blood Count 10/11/2019 05:30:36 AM EDT eCW1 ( [facility]) Name Value Range Interpretation Code Description Data Mayi rce(s) Supporting Document(s) 32.0 HEMATOCRIT eCW1 ([facility]) 9.6 HEMOGLOBIN eCW1 ([facility]) 12.8 WHITE BLOOD COUNT eCW1 ([facility]) 85.6 MEAN CORPUSCULAR VOLUME eCW1 ( [facility]) 3.74 RED BLOOD COUNT eCW1 (Replaced by [facility]) 15.0 RED CELL DISTRIBUTION WIDTH eC W1 ([facility]) 324 PLATELET COUNT, AUTOMATED eCW1 ([facility]) 25.7 MEAN CORPUSCULAR HEMOGLOBIN eC W1 ([facility]) 30.0 MEAN CORPUSCULAR HGB CONC eCW1 ([facility]) ID Date Data Source [id number] 08/31/2019 01:45:00 PM EDT [facility] Name Value Range Interpretation Code Description Data Mayi rce(s) Supporting Document(s) Follow Up [facility] MKSFSb9xMdTWVxBuTQCpAnmUVRgzEGcaRAJxT2F5BIteEt3VIRtautKuFEPpYn9+KTFrIG4oio1xEKYg gMy [file] M45V/Nuno+fkmq+UzHFQiS2e0HO4yHoZW5lmNa3WM17QQcnUaqZXqBmKlPoheUnlJGsqDaSLzCAxphQkuh rAYR6LnPxp1qvJ356GFG+WkSnEd/DPLiuGK98m+QKV 6ga1J5YJoZ0BYZRg7yv2+YDVlHluj+c+LmsQEynh5655tnr5wTFRXruoG5nvzBvdqT4+zIxJFzlu6QIs ow3CGhh9y9chltgNTiwZrf1lb4CmuDudncVDo1WQfU7PS0JlDSs3YF+rXoz3vbJ5eU5fvSIVwIgzTIg8 23x4IOw49b11XBEiiCakr9qyxRG9MJMaUwhJqcInfA X1KyAsrnzI84g6gUPsKxSdEeqRTJh/9yJ5ZLcjHFEZ2LhR4AvUKkOl+CmlOM98deLbcsgHyvjiAgWZ6R Llx8rB6hQXh16b/dbKx96JKFJULfRsd8WHYFQmZ5MFuhRfQCtdBcfy42yc4mzE/Hg3fX8udB6oFTDTtu tJ3u/PfvQlUIsB/V602i6aBWWkQ+pp5GYnMpAT562x mBhT4+Fv7j61aRJH54iR+QwRazFF8Ybs00+0dlUaUy4T7/OYyyhZsGQgb/1bIGtNX/T9DJJ/RbXwDat9 p+U4XwAlLNvDV8GpcVu3L80wcEmI0LBnjlmxo40JzjRwhy7L9kZEkPjbeag1Ofho5SZvIi8h1YwKagRm f6Prfoi/p1B0NCe6ckKI++BvlVev5FHUDasYv4ZZDj FYAAI6YFho2Eqen63//Dick//QYbCbZXzIeXbIV15z2HxCDR5jpGw+5emDt8YcsswVZDl22Bm/wbvCnn2 HAkmigw13UgNvFVwJ1SuavU/qtI4ThFg/2xyWdRTy3xSLVIQ/jlJD+ZzCNHc5iwU7TrxuoVAYTAbjK77 oaB7OQ22bk7lp9F+ouRAarZ5fyo7JYk3AsOqA+Marlyn ViQTbRfeTRq4iVL/Z1gspScDvDa6ATQ5Y6UT2zU7aOvyGs2107pL0avyZl0+jMNXaK3UHA4ixrLNB/Y2 C08CbqYkHi63Zv+XnQCawpZauMjCtwCjaHz6at/fSTnIQs07+YqITalc3w/X7sFIItQBzr/HPSWfV/he /6JpaeFJDGusO8LINBbVLOXVf15vA4/8Enuqm7ofxo /3/5dfEQ1Bxl6FxnjNceJaDtS2C0+gJaw5A0lZfTSoj9aYxgom49ch9sOQ1etY7C4jw6KUOybdKHyw0 r4tblBe3V82afpQ9Spcz1TEWrYDZ6q6GYz9HedGU0jIz5PAv2TWmb8ZH6Yt5+pvV+1MdFM0xLCfcX5Ma b2++nExVdPagZY+ruZxvk0MddYDj4WyItzXpgX78gH JsmyYnS+L4EpqsMYDiTJo4P4ee2Buz5VdjKba61HvhN9QQJQXpSzH/vIu989xd1M1MtpbFEg5L9AGg8W WPLDxyZFmH1gzjmW1ffDxW8aE15Z70iv/wyQ7rHn+QMzPZMJrsZ84/JY7/8K8jCnjqtBMedn8uiJSG05 QwO1D8PZLAeG7ahaom23IZA3mwXURsP81kcYX6gcHl 1aZdlRS/JpsGXlVXliYcnibyOFyx0/FWE5MhwMMIZUd5JCiKuXgJJu+QE538NO54JBX+C0CeBDQRLUHf halDlYCtKeZhW/FgJlJxcbKv7dkm/8WCyxMrrr773XJUsUZT3OkgxjAH7E6qmNNBR68yc0VQiYmh35AF dLXvTu4rBqqtMxp0Gpaw5wjy7gVECgrVTkivdJAId4 KSgZC2zUlKSKp7PI1nE7Vg6aRDILBMUIC476rDVUguF8+ZVO5zP3aug5KmIz1rVk94B+H4T2F0ZGMRgx 9bEdecB6FgEMWe/cXEk++VTb63d8NA1LNvanDRpj4sm0hwm8pen5hFs9O3bMSvbIBnHlwQgYY7tN9/Tz BU+iqjAvwvkgO1b4/geAuFs+q7iAwd8lRYn6+v5vVg dsPIKhLK8URf996LC0smIkUyU/nP2TPvBkkXSBKTFrxmSqXCB88R48uSLxcdLrieRSW6GT9nzQcK29hL 1fqXtNaaCLoQvgA0fkbSMvlgqgLKSbH/xa+3ppIhIKhU9mEhHi04JhsQTe7IDjtqpeF9bM/xTLp4yC03 C32GiXe3pi/bz81RBCI3bhSYZ4c+CHILD CARE COORDINATOR/lpQQD2Jjolw 51v+yGIsT4t7ERXZitTK7Hnk65clWu9WEbWqxVclzpy8Jr3d/kF/khkKl/3ulufG2XJiTgTtc+40cwl3 Gwn4iBEsAhv17+wFTj7EcETyraZdQ50S33lJ42Dy/Sj9E8J2VdWynDt3lm84TLUq2V9GUg457PIIf3Zk mnzUNC3y93PmcqA5j2NLBiNjqvdaoh+xJY9g6JrftW d0E2nAQte6m8IBPn2jgXqFaEIOvL3ROqYZL6iqFu7t3cEnIVij5wFi4/4G4sujuaN6dHJXeu8rCkCZj5 frcNh3XMokC+B44uGhuni3eDVjvpfB1I5jABMoHOKan/zNYNU7TEyQ2Sve37KcnFIGWELq3Mx2NT/MEDHAT [file] tSYn9UFMM8dB/NCwi63R1THGwgQuZlxX0aG3PTOxhuGN8OezGCr6eI8wUMxt2UbnyER+nkuX25q/Mattress Maker+h [file] 6T2WzcZ1hRCX7RU8p6ootVP5h1eGmgdv3ZbLpYZ3qEnQ+veKhmtIqk6aH/belt fixer/GsfydjU7wzg7YJ6dw6T [file] oLEixl0xcuf+zO9Tjdno9J/lVbvgpqpp36wMOuAlGXuJ70/0c2n+1zwECmBdwhJpgy4a8xBmsp2fo/Rodríguez ++qo+Mh5abF1XHoFiTqkww9VLbrZtdOToRt1jpUppMO+VAATDkMa2jcIGUxMyT1KiqDacHdvZljZUnK6 muGT3S8Amgq5B6I9smYzAOPoGAiDl8GB27MhsedWcf uQKjHMD8aaiPJd4K7BI80ybJhWQpi4EPO75qsLujISxshz2X28jshHsJdyZJMwRhoxuUX+7A6VJZrhcw NQATAbUqgBZ2PWErWn0R9hz19kYU5UzUUTpppWYdtQb93s04CqTFf3+JtKgaciu85DFOrs76RLZrpL3R mrpBnXazOMmhVr3/JciWQqjFaWMCuQbNF2Sqe2aYj+ KiDmReTow7uEzLiUQcVfHsVy18go9h696ifED0PMN86NsZEQEp4Bwq+huWkg5wVW8rBSbmLFWTDqpDy3 JDFCNB0qHKu+R8SXEDLe3+7xinwVI5xs7y7uEm+qUvFFvBERXD51K93H17aNYBZ2vq5kLmQyFwPILa4C PTM4D300+wIvhI08PXCy/FMn/omg7oRD4sEOH/5qeI MHNlb6x8zBYsO3ND/FumDkHw4RsXmTVY5TfTdgrD27a2SriCAWsbqLl7AaVJlg7id0EoWEC+lat8gdUr fWZg8n4GFSK+9TUIjksjJeudzFjtzL+Z3OqFaUwFkvrOQ5YieLVSd8udMqfCR9gHnl0wAMw/pQjs6ROs pLIOaganv1NZcNFDEyzAfIxzPFgkDOAgMXvbTQOPZ4 Tasha/Y9ApBmEpZNbF3epuxyjI5/g2MvmiFwxortPxGVF/UMHr6balBiZ7K1mlSg5He5/4dMSAomYtgoa9j [file] keJ3PYU0+Q5+piW5xKqAeEfjp+WYjQlpTBQbwLjJy7Y4sqMUEPb9ZIn9IAaFn8DC3OIEJpbityLm+certified 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 technician [file] JZ5H6lOmVuhkqpoYBKXewvAH9zk7IzOhLLHwwO9jqesBcFhhoQeXF+Elissa/TegUstO5J2dSUlb+05K/xO uyVFK1i3Ldwuf0OEvPyBy+Y9utyd+mNApjWteo6yjK I3HXaLZZbjAGIqcCMDISMqyXJPBQaerhpot7Vo7hL34EcArh13tk3ScmF7YG1K9XgW5Y0ZzTcSAhT7ve hYwN8TJ5exZFUoLkWfdB3+40ycrGg0i04TcCwrwmg/Tu7ZoHYiJ2yrFiQD7cZxHNIwnuIx5XDgWoyzAn 6tiMO+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/k297pTOflkvtm+RFTxLEGpUIl7um1Q6Ir [file] /moWT9R8KWeOe6H0ZhaHaGA25gw/q2+f0pM3fmIB NAaVXAlo5glRhbxthNHqQk+CcN9TAj8l8oM5f/CGS6dLUdj8AskbgQ0QiImlsNFfMxfEjFN2kz4zx65f X6cKGKbym24FxWi3hvSCffNyK6clJkg0mHtID5k5FPnux8h3cbdTDzjNntS5jw9/YucsNZ3VfjIYsrl0 f5br1zLlWGdDZZ+OmdqxmlllxqrEWt8GfJbJzxUBgN B+MJNAoQhW10OK6mCrPhvKaDQnJ92KrJuQhFlmpbaLlotWJp/TfULreHz0mvwcMboTkNxIa1r1DL8k3j mPkxbf7ffc6e2Bds7bOmtx108qRex4qW8UbK4zRQFYIK/Z7LstQB+E4Fu9K9a3EA8w4DB8YSpURIYjlF isR/+N2zeCYlQaEiVt6EWjMOYd0jqgzLpYy84V4OJ9 f3SubGTRsvW1H1lUx49GkSkhSTxIb9USoGebCXbXO/r1v8zzsxUhApYWd2B4IF4FBAKa1WK3p6/1Ezjj 2NbXb7XnTq1Sm8mLfbff6/C1RwjoLpmHvSmK1hJwaaJ1BNhUXqMM+aQP3HD5ltWUIk8jG9KKnw7cJ1jp 2AiQt7GHNaQzyVegx5+Mattress Maker+pfEa6o/Lc8z3nkV5Xhrl [file] rodríguez/v+IEOrcNRGMZAG4RBZl/8B0d26u3L+PRzLfRSw3 [file] MsrfaS1JRJACK8JGGax5Jd0AwKkKaPHqnUhlXn/Application Administrator [file] rDrTbENF//K7n/6D1RxRzwmyCmt8M6WywuzwWsKJihTzJNWjG6gSRYvzY6/Татьяна+XEjutxq94d+qaB/pq [file] cVL8l9irHQkq/Mattress Maker+1ju7wet9z2rihl4Lq7x7DjWRoCM3JbI5PCx0ksxypE+du8L/u2T/togv1LiLorKr [file] Ns0RD0GArAcGSWopYYC7tvffSfSZPhLLp4FZ/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+TX/iZ6ORSyNhqw77WSW4sxUnUvH6NH2puXfoB+EV [file] 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+MSihDidVIym5KpA6tCRJwEcDkcSGFzTlKz8WnYg [file] /Y4AL1X6pDcR1hwVVHqVV7200roa8Htzi3t+bQ+demand inspector [file] BEC2j0irFnxZUDSfafTD1zMFfVxNsIlmITZ1/Rodríguez+DO38EvsOWvwrou2/fLTxbQZyI/+SLAKlz9HH80qy [file] PDphuE2zcNReoYBHDgOSsSpt1+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+G0mG8KAA418Gb [file] jEbRw/mLfkvBwQFU4rRMUeeHm77kDgiQwGoFSGC9a+Rodríguez/PDa8tryNcAw8QIlVtvC+gH0pJERPrEL6b0J [file] 1bRijLuxDSDWfvIHqRRjHwS4ZvAnd3H3RUVyn2dMRRm2RZp6YBCnXRvmRXU5L5IOb6Cc9FpJo/татьяна+0r [file] NIbe48p7/[employer] Worker+Qe0oiPlCsJ21HNkk50RLbLEQ45719 [file] b/RODRÍGUEZ/KVtpfLjKgp9RcN13lizdjPCNIWvMK5vkrT6zt [file] maCDMmG7Ob6Q2AtI+Chs1zgq29q7kdGO8p9Kr9R45jWevnZ/SxziV7IDRxOLWzRPB2IRkcCHmZxwN+Rodríguez [file] kQMkY+z264/4vCAdXvpbEieG5LcvUQuyk7n5PDfM0/rSeoEl2Nj3i0uRzn2hGt8l3F47tdYzHMt//sales team recruiter [file] [facility]+5fmTPBLVaMxMnD/5Cy6Nis0yois22U+AhoLXswOsdD/wt6RDBYu/9xEo37bVapwT0qtlDoeasEI [file] u+IAb7gkeaRIPcQc8k5Zg9dxB47lOIByEzQcnl4MwnNvFKUJ8lx6svK3owYRtoN1Y7BXbGH4CmTaq+belt fixer Ju/IQJk1LgcbdJKSKXr0kllYqLVk6h+3BVAlqxV994Lv7UFctBIqvGs2FIAN8G5uFBn71PPFihbqfD+S 6fwd8k+vXvAGZGwV84487Ra9VXQc1+gJ/1vqKO/2Zi 0b4qXzLuhc1MQhI/6L3PKJ6ve2c0N6mxPeF3VHWBidncv/p1HPSf60zK3Kvbm2bYX7YeR6nspnwTBAzd z9ewByF2/GmWVW3y5h2LD2206ETS4SmTSKkppCHlv8ftZd+IHjtezCLPKvVdI8Mc/J4oILsno3m99i6c /tK6JN0xtnVDItYTS1gdc3MWt5LKSfjRaA8cYWgPld /arlin/KzIllg2dTdAj2urinIlb7HokAWtFH2r8nYYdFFlKCJjs2RGVk+zMSooV0G4+Ew04R02szfu0VrRy [file] +lgz1rHuQEmIgzeeylIVE1qFpet86igTtyzmOG4gWPlBgWzKowolDulw53ZDtzYwP6rqIZsl3/It6+Patient Svcs Mgr [file] qT1Jxb3CK901p74CEF6grZs4O081iORmwcXBf+z143 0c+Gxh9wid5FYkFG2RBNWLHJSP6NnIFWrInHaI6KpR98v+FOM3BkJ1HcoF3m0jnk1gF5s8BiYIffHzE7 NAal0OywePcZPd4Z8CbC86AnpqkKR8MXMBymGuWnT1Lcx584kfWdoOhnZzrXONTCyqI4f5jxuN8edv/9 f6aTLsd6rFyB0c1dFVENNvUisaX09m9wBDhNJ6CmnS +7vBWmU9uAyEjLLSEma8UABlyLiv2ChFegC63mx4/CeS29xod9/yOJWjALm6EX4WGf2Z32k99D1UMnKr yr5iFg5SAeEGPYXdp23qxdJ4Bj9xWAbtH8d/Y1yc9zDqr1cIWpzIo8D9/3aZ44nnabUw7tkeQzUF3Zg/ DWuswaanNLkVb07geMSxK0dfP3VblRLphhdjASiFbY F8ih7OkF9R6nDCu7kGVoWq/lWrNpC/tXpcgaSZXjIxFU7qyqvVQMzEWfShiANpYFQm1aj/JwKaan8KQk Jq6skQBWPukCa/z2lk0stQ2FfmEEar3C2ZPPT2AK+gC1+jd4Y0X5LL5AmwzG89RHasCaxP9W6C/PQ6ow NJLz/r5K/0E0iYK/l1xRQnML+g7mq14RwRnRHOb7mp wNhN00+JQpDF077K05/jIhuOmfKcp19kzMlyWoNeAzWGOS46/DtzQw7u9A4dMTYPxC9Q8G1ZvZmXulZs cRh2DdWUisL42k57R9/PR4TC5SFjV4m5zdhqlOq8BbWqg6gfuzsc4P4JWfdWzvZTngScX0r/kWsGjoM2 briana/twL5gi+gtujgw3adfAZSW41LOkTZPAne1h7S3C C6PVpuevMpY/tv6UmbJoundpvvOXZMFsMa3e9Hp2KD2IIHB8innTHBb+W7hWGbatXL7foXBY3J9pY3Qf SMxxjRcocslZd5CNaOxRjy8P0eK2XF1eGQRJ30JB/apkBeK6q3nvT8p3/hvUu9oFdpcWNwF0UsFRiHkD D7Xmhxv9EGztwxYQwP+BKwpQBWwyN774+iFdB1j [file] [facility]+AMq7yxhPaUMgL85cHeXoJXggFJhCoeN8MrN [file] ettqAf0NEy1mSBpSsDqIPbg5sK7SBWAoYKnMugvgHAGuhwu4QDhY4lJdY7tvOLQmuG4Btzj6zAgK++rodríguez [file] [facility]/Ay/1YWhknl46UGaQ9198kzpSb9OrqtwCjXFUrtrfP3c2Wsu27JXLXa1ognpzsJCeS1SQPkC0fkh [file] /jjdJfGxfIoqgnwKAHKluYn0+PSfeQK6SiteofpsCghMSMyDqtvVLlQbpn921579ezfPShYYqyPmbh DGRFYvrEWFqKl7d4pjHgF9yMF57/C4ZXg+lWWJ9Rxk vCnowAoG50/2D/3DjG6E1I1adFhs5ZCryWs7qH9mjghIDIcsEwf0ext3mQoM9X83t036ZaU++MiEbD5W ZKy6vwOoZABNi6CO8wffi2KYh0QpGvZ9PIz8hUaru0olnIN0nxklFmRuIr+lgYz3bGjgjtye1SWnS0w2 3fAU5qneJnpjyWQUoXcOEr5Zzv75EaKmavHb3u0HXV R9uU/CUZcmwkpj1G+Ric1LCJeFnFCMdeAy6SEsWlpaqsrIqPVHwfdm9Gjjt09FcD6aLwcCBwU/SCKSYo zExFqI16fofXiZIUKgOiODZBKxYgJAZErUPba7RHmFeTwVhuWXYtAw91bbciP0oFE61FrUBUWgC9oKk+ un9XPQGK+ke0GT6gBIvFr/qCHn3NuT6aUswvxnyFDp d/vOgwW+S19SEG3CgGv/uDKhCeeoPfJIxAm3HUJ2izDPmhp3+4P2sMZ62pUSzDR1M16wN7e9gAFwY048 62jKolwHfHNafYDmd5KOFLUC4wCPL3BjEBFiXFBSqFyM84S2eegFbg98h22Zjk3nBVRx1RtMTlwqPa22 wmaPhhlHYJQAbWivk5n8eN6/bpPzGd6aL/vQO5Nb99 yGPIxH90vZU9pOKJrwpC6bjjJrscs0xYpD69ugIXIX6I0g5nIow3G3h0YJde6AFOm1QhjoPUQvRq7pdT sn0jyZ6BxVJFboU1dfbyfJeWhpM5dKqQ8oaG2Hw1pO5UHvoTQKrlNHdxHOe0o2qGzAo7n8x6mGiKO196 tqWAPt95GMlLghm+069BmFQZ2ax6gzl9BIqhTiULb7 zltz+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/H+Kt8EgivoTL7HCzPyBpHCY4yG9bQl5nM5vpHx8TpgfWqusiND9X126j72y2f0gRBtpmweql [file] qH1P9ctdqDFbIOXltj3FHCiTA9DBfSbGqrqUUkNYEuK/f5lfkb8oFZR7CEizmHoeZX+hydraulic boom operator//axMAnP/z [file] d/gcDeSf5cTY1AGPPi8VYM0RYDxokzVDUjyol [file] I6fsBxXInvKXF1TJvlXMjcEUNNVz== ID Date Data Source HEPATITIS C ANTIBODY INDEX 07/12/2019 12:00:00 AM EDT eCW1 ( [facility]) Name Value Range Interpretation Code Description Data Mayi rce(s) Supporting Document(s) 0.1 <0.8 HEPATITIS C VIRUS TOMI INDEX eC W1 ([facility]) ID Date Data Source RUBELLA IMMUNE STATUS IgG 07/12/2019 12:00:00 AM EDT [facility]CW[facility] Name Value Range Interpretation Code Description Data Mayi rce(s) Supporting Document(s) IMMUNE IMMUNE RUBELLA IgG QUALITATIVE eCW1 ( [facility]) ID Date Data Source SYPHILIS ANTIBODY (RPR SCREEN) 07/12/2019 12:00:00 AM EDT eC W1 ([facility]) Name Value Range Interpretation Code Description Data Mayi rce(s) Supporting Document(s) NONREACTIVE NONREACTIVE SYPHILIS eCW1 ([facility]) ID Date Data Source HEPATITIS B SURFACE ANTIGEN 07/12/2019 12:00:00 AM EDT eCW1 ([facility]) Name Value Range Interpretation Code Description Data Mayi rce(s) Supporting Document(s) NEGATIVE NEGATIVE HEPATITIS B SURFACE ANTIG EN eCW1 ([facility]) ID Date Data Source CHLAMYDIA & GC DNA AMPLIFICAT 07/12/2019 12:00:00 AM EDT eCW 1 ([facility]) Name Value Range Interpretation Code Description Data Mayi rce(s) Supporting Document(s) Chlamydia trachomatis rRNA [Presence] in Unspecified specimen by Probe and target amplification method NEGATIVE NEGATIVE CHLAMYDIA DNA AMPLIFICATION eCW1 ([facility]) ID Date Data Source Type and Screen Prenatal1 07/12/2019 12:00:00 AM EDT eCW1 ([facility] Name Value Range Interpretation Code Description Data Mayi rce(s) Supporting Document(s) NEGATIVE AB SCREEN PNP1 GEL (VIS) eCW1 ([facility]) ID Date Data Source [id number] 03/30/2019 01:45:00 PM EST [facility] Name Value Range Interpretation Code Description Data Mayi rce(s) Supporting Document(s) Follow Up [facility] TWVNYp8kVkEUDuXiKBRcMckESJugEEwcFWGfS6A8EAhnYs8YTYkhevFpWTWeJd1+EMYxKX3uzm6qAZEa gMy 4sEHDeLkkhB9FhKRWki16GRTSvWHoYDvUeEoKgTPHdBPUgWbQ1HWS0ZwVgBkxzEG6kWSF2HRGxJWpoQO HgVHCpWHJ8QuivBV3xJGtqAWweXa5CWD3ef6NlSKOkQGJkCnpUMSfmJIfaMMTcCDRkCAQcG367bfNjNG 7RlGWkDHr5NINkJzY5DYSrXpW0QZPoCjGfHeQmCQLr S9Tad319erVemqD7KV6MJ5NiOIS2AKq4J6icJjGfSZUbZGAfMF2bAcX2CQZoEq6AxHpqKOQvCIAnFj7L rQw5FZW1AUMdNd5+Pj4+Ar8kxzWdLngOTRHgPA1gtm44HX7XjPOxVQ4LPBhjU28eBNtjMa60BMylETAt EhWnIMp8Iq1zIjRpn8CzW5WxCRt5X3mXCrsqU4JmKF gqFA9hEEM8KJEyMx5+Hr9iWZEiXE29YGTgQNULU9FarvNjxyZqTBt9CDKyJx7+Cp8apbEaGtvSDKPzXW 8nao67WZ6DHO2yvEqzVqr5UmDyR73gqFBdB6foOlYuP4RwzWvkPHHvUI5eG7RwJBcpFYJvQZ0lpqPltA 4VuZb7QWMjEp6TbSR1QSFmA58dUVUkJMYIGJFtf0Wy XV3Jk6wfrzJkBIXyLF9CDPWrR1QEO7YiX7snnDwsEFWvDD4WEPjqsHWeFNy4XN6WpFStOFRqR88mwV5p BJ79YAq+TbM8ryGawK2DaPgqu5IGGY904p6G8+ImRg4HzEhQTOZMLUvtDRBV0V9GqDsNVNJRy0Eet6cb 7gwafAYd/OS/9416jJ2aldn6nx4lanj40a1P43im89 [file] xP35Q23HcLc8om/ff57XZNO7erDUL5g+CHILD CARE COORDINATOR/oxZUC5Vnadg13q+hUFaA7m9RAQBiwWI8Xms14cnVt7GCm [file] CXAxdn3/6xY1NEzVBIF5yhUpo0qYSYXPyAkVZ5lGMpFk5C/4NpRAT/c8pCaS5QWuT/jZ/+D6BlYQ+Tenoner Operator ZtOr3x6ZETeaLl6wBGaN/aIzwPGnlm5ftxdE7TjpEV+Brown+de21hwElFbjiS9oUIf9RNaUpXoyVeC38Y6 [file] Owf+Víctor/shvwRBSVqurnBS2lkQD8Xw8/A5NmhA1H9m [file] S+EmrklODBSEORpfJdXBRlHgNclt3A2kfbNSpVkdq+IJooR2P+microsoft application developer/4J6NziWiCX+QEjMhZ36v0KQ7Ry [file] [id number]+Y4rSiB03lFim2SEoCXpnAG/0/GgDdr4XKxHKUg0g3QdUd+Júnior [file] iz5ezCeR9x1OyRr3cl35XEiBFGJL/[employer]/eJFkLphTb [file] belt fixer/94RrlaL7iYPLWLjXOzUpAXY+O1XlaCzfxiHbEo0hbz5IR7wFPyWIzmDWz5MQSCm2v0Bi4TS5fT+VW [file] xX/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/+TNFIYGjof7nMblZuhZcfx9eeIXsiHQ6/adpMQd3xJ6mhtR6kBgf5YxES/IBjwATvwc2s2fBXw [file] x9aPEJhp1ayXGQTct38q96vr284gerbeflVCuk0/IGbC+IxaAUtWhCwgPeH/door assembler/7P+KO7ZuXHWn0iKf [file] xbkcEFQ4U645cemwlvaevAyfcvKKbGw7ahhund0F3E +7SEfGrUDvqcAHhsKPrKehDOvsdlgy7epzGnzKVNw2Hx+9NVYB65EBJcM8nu4pFnppqnBBmRjT6z52YG PkNzVn9J5aXGo82+AXrrDnRb5QO3LZev389YR9cjFS1zf3YNTXXTL7jl151skIAc8CMVXLfg3BMdM980 51vj3Ysnnvt1T55u0FYXeqPq0fJpKpM70MjLJmYw62 sdIJyS9yrXAN/GalapAZ+OAXcybIzttYPcG0wtcm9SJbmIdQAzLffuDyuvlV3N/Fa4DsEcqn7UDdo//J NcU32LX5XcXwowkd6xg289K99BDyPsJxLVPJHWAXGLyAAaI3viaI+5Uxv/+apuel6cp4x6nPCNtAgT/t C3MpIONaRnp0U40IhaHgLNuADl6nWhoSroDbE+DkaE k3XKlFb7R+cbLAOAji6Kv2GgXzVckL/+zh0KblDX3sWWD4Mb72I4OU3laxg3NJuhvpYBNCc7Z6rF1FQi H8Y14uhczX2daoyxfYEPlW/fpOY8aBpBNagaUCwdBVNkl80w4FZXOtHeUuwE0qQgEIIEKw1pfdIQw2bH XWeLxQmc0XYu/zSY4Fl5AwNz+19TA8pOm8dEmdx1RE A728J4dzA++XjhEl0HUUO+YWD1JQQkvCR8trNY91ipPPVdTpGEHphDQB/MJKo3T20F7SKX5z9ZwMYNmX 8GnRDSs859NevVAc0+uMX50GgWp8GmVBoEo4Dj/YGLdtPZ6BuGZ781pEAx4q4hbBjqZ/czc4aVTd/Maria C [file] enJ4+y0+NVDQ7iJUsA0LLVwZuTjnVBrmKNf/vp corporate development/9dv [file] 4LemTgyCeMRCCxJHBweypOj7LlHtt/+qw3OvA+YrnY1blxTrQ8uQ8iat6AjFQ4+maria c/uAH5DLY5VI/DT [file] mGsg0ggymaU+lnQOmK9zWraf8r/Patient Svcs Mgr/28qp3gHWUmZk [file] F/sppfkqcjBNuwhmU99SWCmUIzxvzmz9YwIab6KnS0 GX2bJ+ZVt0ztLi0xzJ9tTjcoclUNGcafBqCV761B1HgBN+yGbrWPH260a9ltUystqjfo0sJdtE4FXDcM D4jcE8xVc2QVsG3WetqGJ7HdE940S8k3xDC9pb7Jg9gjZ5jVwge1xrskGQUFAgzaMN7ylZZyoQHvE8D+ ZwguAMPmHzIkpGwaJH+IClT4u1I5cTB2/IZrnreqt/ utdnNFMNE4Y7AzraQ5t+VJrTnH7rI28D0xGiHlMyTFKCi+wpMO/Ctd3L0GqLwH76Ldjhwe4kgHpw/zte c9fv4cchMh488jNud+3dk4WVDXsKDoM0rLqLOm+mrv3IdNWYFJYmhPIdPz25PAWdIHYaRedhrTFSTihU /vTXDS9ExZTZ8/FiiRH9hYJKbfXhKEh517WncYXc8w LTfhD+m1i40xvQYOg+32FgISPUQwpSSvxIxEekJVji/d/dra7AGyUOxuvyO1kG3MYw8MsuzgbYki0bfP zh8dwdv0/Hyx1zY/Kb4vYnPya/Nc+rW27bFKIt5cscfgxi76tqtvuePNB4m/FeYqzZD31oTcUsYWpriz 9N65N6MFFtsddFUM7OltmiMQUfqR+h8VO9AoBN6kqx pBU5byEFQQyClT3Ang0zTnizuEwEhfcFyLdLra2HDLgJjeS6BOLKW7Nv765GlTuJX/69c1scOLSSBWej 2apNGMSrts5XoGmiVeNv22gXoJWSUNR6S2Nes9K6LJn1pO0SHSILc+OMbsX0IFel7FdKDtyzrOxh6eZo NZmr8YupU0NpzKZkTJ61mdgLShh9clIgdxzBiLkayi YVUG54R56N+XzxOjvwJnusa0t/biomedical equipment tech/Kc2ECYAhvxR7r9LtMdzmu2YMfz0zO02Rj8lfEcOIj8ys01Qt84 [file] RjUU8XBOvXTcr8EhgJ8dZKdguST9tT9dPbCp+N+Júnior [file] cAcrnEaw5lPEMvPVJiJ59T3cbDPQ2zca2aBUM5D2JoxEM1N62/yrkQmPcMrKGBlnrZVheopWH8uI+Event Sales Representative [file] lkn6vauVqUwTzj+evqitecW14FuBv+CmlhEZT5+STOVE MECHANIC [file] Sxdf0FcCufuMAc4TNHNgclvp+[place]/9vXLKB5HnPvW4 [file] Jose A+Oq2OpMDd4r6ewwq2OaOytftavyYxUwXGb1/NJo [file] Sarah+1mz9fhIIjbXxrtibuZf/NxDfIGLUlnM5RohcfJBOGwZKqDsxHyTSiCNjZzpPIUWGeac/hdy9CglT BiiALMnRIPsMFrzbeXD6/JBliE3LqSDZAE3tpwyB5ad5WGAMBiJ4n38YmXYIJUwQ9mUH5fEfALlmNDqz UC90k6qDDQNU7oL4VYtlU86wRZbxo/R6mt/r/HHtRV 8HzzaEm57Pwc2ROIxFPoZvMG/NmYLtyA0RCsRXNLXWHuJKch1OubeHbGMBJBSxMexyK9ohRQmq+Qzv7q p0ljnSnRRRUrmJfyX3Ng3FwSeM3T8lyWiN1RmdhvZJWl5c8erSIA0DT+ZCw9A1g/zOc8hVR80u2vIf6X 2SK51Cfe4Cv6hk2/1p7hNXjbzKhsSZs6XDmgXkn7Yr V0dfArQJN7kw7w8IcMAOghcBnDqWKsocwZqH1NssO+yuuYtTrmNtyl6/scBcAvYHZVA6XhxUEY7Zxbf5 Oz7E76J6e1wi84X433mmeGuWAFVlvqR8BiDoSkJWpYaGydqAB2ds3MB0sf4R3bDZkU46qfZ85xQf6Amu UlyDrPb48CefJpT1v5bJhCZqwCOPQ/M+f7bhMvOqyl BO8fu2hOJE6rf9wurLMeU1lFQKYvoLW/htc7xObKh4g3ilxbpH9U5fJ4ISzWM0R3ijCEYjacStO2qoKo hwi+8fYEDxBpVEccwRTvr6xLo2MD+qJq9H9LA8+Z0UJVGYY6+oeO9xaIh2gTwas4lLirHV9e1J1kG5fc vN46pe16Hp/lSc0DUYc+nRyVaqFLDlJTiJxXgLV/rodríguez [file] iHoZWphM/gas jockey/36EJdFPf7OdmTWoYuRf4tLEicYQ8Nj6HgOB5PIoff1sPe95xuMOcOZNPZPIS5c6Lycb [file] HywNpTZ/LDdVI+belt fixer+04J4J2v/GnLc7k4a4W1HPrnGf [file] RCMIWW068z4XPHZ4pwUCFG+B2WGdW/hMFBPV082aPT lNYPBeFKx7RjKSKQs+wz5l6X3k2DL+Yq1An6LaVo/54UvreWirrn0MZq3/SDmwGWT7ILQaoJMLCn5RxJ XT6H3Vxe59+5T1vw4oq6nD6pO2kmTp7FqArKfOYpK0QejJByu+moq2rzr3ebOj8KCWysfBGeD6BCLmKn 3DpMnoUugAdlaTseCD5P+orFf2Oc2YCKkD6y0qwYzD 8vpjVpkhy2L2mLJahXarb2Jj0iZISaO6g4KrwafKE+RL80+EgXiBH4+VJmU1S0Ddp6/iPPwr7KBNlBBU t06MtWyPEK3Z6VDe86d0GY3vG+09wSaGqzPU2/+PPWzvOSI2Hd+aDOPsqZVyZmnxgw8wPoebFPQnTYyw UQPVuawP17armhmkRoUdTd7EIL7GSTvqkYmLjI9rQM WGJvcC8+zdit2CWYm6t2J0biWd9EUOTc58SFb091QtvFzqvOSg+ggpf8ANH/L6S/t+NJiOc+K0swy77i oEur4M2ZTZyKzJ/Lmkl6xHOZfOReBCiydFMm+ndyRgjePCvTM26Bnsk9ffbGeD0CVIPqmsPB2O9LVBve 7ZbmQhRRw0A6WlyH97dHIctce57Ep5k23zld0A2cTj CSFHd5l7osSoI80i/u++ats+49MAL6kAUwcJkppo6OqmR0/pwSuoAsfquHnK8pGBKFJwvZoXFa3jNkz1 HNYOU8ww1vDfqOYguhtD5WtxWgKhzgn3RTGFM4KtdR4LHQs1E9Uj7Pf7qnCyUKzpl+m1d9s+LY+nqgbJ LpU6PHEtDpqhSPLJa52coVaQENV/mXjn+ML7pUw27H sm2yJcQlwg7TtRPXS10sGIdget1+/QokxpCbNEnjrUcvfvvL2M3VRPVa35HBCNZsQ+ogVVAVzds5+ammonia technician [file] pHbTANLMWW8tZVo1QeFfUpys4bwaJzUCt6rerQ/DEVELOPER PROGRAMMER [file] rodríguez+kGl3jeRmMQLsGAZzUR7Cwq5/PG0zdOR5w5w44Vb [file] KZuJXjPHkPV4wWSMcOLbunxhfqbkN/LxHWmc1Fg [file] MOp/Wz434Uy38jjw7az2HmMgTO6+ZXDNnhu3WKdFRBlQ6PZiPntqWfhrQRrlnly12AVFzeOe0IMvr+Rodríguez [file] card sorter+ktrvoa34zo9WVOnC0/zBhS8WuKK0o++TiShPIOqxATWDS2l0/axaGDW7Hz/tk/89FnKPJFfjfCCl [file] IfpP3XPU1xz5KrCD4Vb1ChhpZ9fkXsGNmsGpK0HGA4GEhfCUPYSv== Procedure Social History Code Duration Value Status Description Data Source(s ) Smoking 01/29/2020 12:00:00 AM EST Never Smoker completed Never S moker eCW1 ([facility]) Smoking 01/29/2020 12:00:00 AM EST Never Smoker completed Never S moker eCW1 ([facility]) Smoking 10/11/2019 12:00:00 AM EDT Never Smoker completed Never S moker eCW1 ([facility]) Smoking 10/11/2019 12:00:00 AM EDT Never Smoker completed Never S moker eCW1 ([facility]) Smoking 08/11/2019 12:00:00 AM EDT Never Smoker completed Never S moker eCW1 ([facility]) Smoking 08/11/2019 12:00:00 AM EDT Never Smoker completed Never S moker eCW1 ([facility]) Smoking 08/11/2019 12:00:00 AM EDT Never Smoker completed Never S moker eCW1 ([facility]) Smoking 08/11/2019 12:00:00 AM EDT Never Smoker completed Never S moker eCW1 ([facility]) Vital Signs ID Date Data Source UNK Name Value Range Interpretation Code Description Data Source(s) Body mass index (BMI) [Ratio] 18.3 kg/m2 18.3 k g/m2 [facility] ([facility]) Body height 62 [in_i] 62 [in_i] [facility] ([facility]) 5'2" Body weight 100.00 [lb_av] 100.00 [lb_av] MEDEN T ([facility]) Body temperature 97.8 [degF] 97.8 [degF] [facility] ([facility]) Oxygen saturation in Arterial blood by Pulse oximetry 98 % 98 % [facility] ([facility]) Respiratory rate 10 /min 10 /min [facility] ( [facility]) Heart rate 108 /min 108 /min [facility] ([facility]) Diastolic blood pressure 68 mm[Hg] 68 mm[Hg] [facility] ([facility]) Systolic blood pressure 102 mm[Hg] 102 mm[Hg] M EDENT ([facility]) Diastolic blood pressure 68 mm[Hg] 68 mm[Hg] eCW1 ([facility]) Systolic blood pressure 100 mm[Hg] 100 mm[Hg] e CW1 ([facility]) Body mass index (BMI) [Ratio] 17.45 kg/m2 17.45 kg/m2 [facility] ([facility]) Body height 62 [in_i] 62 [in_i] W1 ([facility]) Body weight 95.4 [lb_av] 95.4 [lb_av] eCW1 ([facility]) Diastolic blood pressure 60 mm[Hg] 60 mm[Hg] eCW1 ([facility]) Systolic blood pressure 110 mm[Hg] 110 mm[Hg] e CW1 ([facility]) Body mass index (BMI) [Ratio] 19.168 kg/m2 19.1 68 kg/m2 eCW1 ([facility]) Body height 62 [in_i] 62 [in_i] eCW1 ([facility]) Body weight 104.8 [lb_av] 104.8 [lb_av] eCW1 ([facility] Diastolic blood pressure 54 mm[Hg] 54 mm[Hg] eCW1 ([facility]) Systolic blood pressure 92 mm[Hg] 92 mm[Hg] e CW1 ([facility]) Body mass index (BMI) [Ratio] 19.095 kg/m2 19.0 95 kg/m2 eCW1 ([facility]) Body height 62 [in_i] 62 [in_i] eCW1 ([facility]) Body weight 104.4 [lb_av] 104.4 [lb_av] eCW1 ([facility]) Diastolic blood pressure 62 mm[Hg] 62 mm[Hg] eCW1 ([facility]) Systolic blood pressure 98 mm[Hg] 98 mm[Hg] e CW1 ([facility]) Body mass index (BMI) [Ratio] 18.144 kg/m2 18.1 44 kg/m2 eCW1 ([facility]) Body height 62 [in_i] 62 [in_i] eCW1 ([facility]) Body weight 99.2 [lb_av] 99.2 [lb_av] eCW1 ([facility]) Diastolic blood pressure 56 mm[Hg] 56 mm[Hg] eCW1 ([facility]) Systolic blood pressure 92 mm[Hg] 92 mm[Hg] e CW1 ([facility]) Body mass index (BMI) [Ratio] 18.034 kg/m2 18.0 34 kg/m2 eCW1 ([facility]) Body height 62 [in_us] 62 [in_us] eCW1 ([facility]) Body weight Measured 98.6 [lb_av] 98.6 [lb_av] eCW1 ([facility]) Diastolic blood pressure 60 mm[Hg] 60 mm[Hg] eCW1 ([facility]) Systolic blood pressure 94 mm[Hg] 94 mm[Hg] e CW1 ([facility]) Body mass index (BMI) [Ratio] 17.12 kg/m2 17.12 kg/m2 eCW1 ([facility]) Body height 62 [in_us] 62 [in_us] eCW1 ([facility]) Body weight Measured 93.6 [lb_av] 93.6 [lb_av] eCW1 ([facility]) ID Date Data Source [id number] 11/09/2019 07:13:17 PM [facility] Name Value Range Interpretation Code Description Data Source(s) Body height Measured 62 in 62 in [facility] WEIGHT RECORDED 107.6 lb 107.6 lb [facility] Patient Treatment Plan of Care Planned Activity Planned Date Details Description Data Source (s) Sprintec 28 0.25-35 MG-MCG 01/29/2020 12:00:00 AM EST eCW1 ([facility]) Sprintec 28 0.25-35 MG-MCG 01/29/2020 12:00:00 AM EST eCW1 ([facility])
[2020-05-09] MEDS ORDERED: diphenhydrAMINE 50MG/ML VIAL (J1200) IV STA (19:36)
[2020-05-09] MEDS ORDERED: methylPREDNISolone 125MG 2ML VIAL IV ONE (19:45)
[2020-05-09] MEDS ORDERED: FAMOTIDINE INJ 20MG/2ML VIAL (S0028 PER 1) IVP ONE (19:45)
--- OUTSIDE RECORDS SUMMARY | 2020-05-09 20:34 | CCD ---
Author Author [facility] Organization [facility] Address Unknown Phone Unavailable Care Team Providers Care Mophead Trimmer And Wrapper Name Role Phone ZITA GATES Unavailable Unavailable [...] Unavailable Pedro Bain MD Unavailable Unavailable Pedro Bian MD Unavailable Unavailable Pedro Bain MD Unavailable [...] WATSON MD Unavailable Unavailab le Farrell, Donna BOOKMOBILE DRIVER Unavailable Unavailable Farrell, Donna BOOKMOBILE DRIVER Unavailable Unavailable Farrell, Donna BOOKMOBILE DRIVER Unavailable Unavailable Farrell, Donna BOOKMOBILE DRIVER Unavailable Unavailable Farrell, Donna BOOKMOBILE DRIVER Unavailable Unavailable Farrell, Donna BOOKMOBILE DRIVER Unavailable Unavailable Farrell, Donna BOOKMOBILE DRIVER Unavailable Unavailable Farrell, Donna BOOKMOBILE DRIVER Unavailable Unavailable Farrell, Donna BOOKMOBILE DRIVER Unavailable Unavailable Farrell, Donna BOOKMOBILE DRIVER Unavailable Unavailable Farrell, Donna BOOKMOBILE DRIVER Unavailable Unavailable Re-disclosure Warning The records that [...] is protected by Article 27-F of the [facility] Public Health law. If you continue you may have access to information: Regarding HIV / AIDS; Provided by facilities licensed or operated by the [facility] Office of Mental Health; or Provided by the [facility] Office for People With Developmental Disabilities. If such information is present, then the following [facility] mandated warning applies: This information has been [...] law may result in a fine or [place] health care [place] sentence or both. A general authorization for the release of medical or other information is NOT sufficient authorization for further disc losure. Allergies and Adverse Reactions Type Description Substance Reaction Status Data Source(s ) Drug Class NO KNOWN ALLERGIES NO KNOWN ALLERGIES [facility] Pollen Pollen Pollen Unknown Active eCW1 ([facility]) peanuts peanuts peanuts hives, itchy throat Active eCW1 ([facility]) Pollen Pollen Pollen Unknown Active eCW1 ([facility]) Drug Allergy NKDA NKDA MEDENT ([facility]) Family History Family Member Name Family Member Gender Family Member Status Date o f Status Description Data Source(s) Unknown Unknown Problem [facility] ([facility]) mother Unknown Unknown Problem MEDENT ([facility]) Encounters Encounter Providers Location Date Indications Data Source(s ) Outpatient Attender: Donna dugan 04/12/2020 02:15:00 PM EST MEDENT ([facility]) Attender: SHIRLEY MARKS) MDReferrer: Savanah Bain MD 02/27/2020 08:20:12 PM EST [facility] ( [facility]) [facility] [address] [place] [address] 01/29/2020 12:00:00 AM EST eCW1 ([facility]) Attender: SHIRLEY MARKS) MDReferrer: Savanah Bain MD 01/08/2020 08:20:10 PM EDT [facility] Attender: CURTIS SALMON JRReferrer: Jonny jermaine [id number] 10/30/2019 12:00:00 AM EDT - 10/30/2019 01:22:26 PM ED T Maternal care for other known or suspected poor growth, second trimester, fetus 1 [facility] Maternal care for other known or suspect ed poor growth, second trimester, fetus 1 Outpatient 10/30/2019 12:00:[address] [facility] Outpatient Attender: ZITA GATESReferrer: Anyiparesh jansen [facility] 10/30/2019 12:00:[address] [facility] ( ESTOB) [facility] Est OB [address] [place] [address] 10/11/2019 12:00:00 AM EDT eCW1 ([facility]) ( ESTOB) [facility] Est OB [address] [place] [address] 10/04/2019 12:00:00 AM EDT eCW1 ([facility]) Outpatient 09/20/2019 04:59:00 AM EDT [facility] ( ESTOB) [facility] Est OB [address] [place] [address] 09/12/2019 12:00:00 AM EDT eCW1 ([facility]) Outpatient 09/07/2019 05:39:00 AM EDT [facility] Attender: SHIRLEY MARKS) MDReferrer: Savanah Bain MD 09/01/2019 08:20:06 PM EDT [facility] Attender: SHIRLEY MARKS) MDReferrer: Savanah Bain MD 08/31/2019 08:20:06 PM EDT [facility] Outpatient [facility] 08/29/2019 07:38:26 PM EDT [facility] Unknown [address] [facility] [address] 08/29/2019 12:00:00 AM EDT eCW1 ([facility]) Unknown [address] [facility] [address] 08/25/2019 12:00:00 AM EDT eCW1 ([facility]) Unknown [address] [facility] [address] 08/25/2019 12:00:00 AM EDT eCW1 ([facility]) Unknown [address] [facility] [address] 08/25/2019 12:00:00 AM EDT eCW1 ([facility]) Outpatient 08/22/2019 05:08:00 AM EDT [facility] [address] [place] [address] 08/11/2019 12:00:00 AM EDT eCW1 ([facility]) [facility] [address] [place] [address] 07/26/2019 12:00:00 AM EDT eCW1 ([facility]) [facility] [address] [place] [address] 07/18/2019 12:00:00 AM EDT eCW1 ([facility]) [facility] [address] [place] [address] 07/12/2019 12:00:00 AM EDT eCW1 ([facility]) Outpatient [facility] 04/14/2019 10:43:01 AM EST [facility] Attender: SHIRLEY MARKS) MDReferrer: Savanah Bain MD 03/30/2019 08:20:01 PM EST [facility] Medications Medication Brand Name Start Date Product Form Dose Route Admi nistrative Instructions Pharmacy Instructions Status Indications Reaction Description Data Source(s) Sprintec 28 0.25-35 MG-MCG Sprintec 28 0.25-35 MG-MCG 2019 12:00:00 AM EST 1.0 {tablet} active Sprintec 28 0.25-35 MG-MCG eCW1 ([facility]) Sprintec 28 0.25-35 MG-MCG Sprintec 28 0.25-35 MG-MCG 2019 12:00:00 AM EST 1.0 {tablet} active Sprintec 28 0.25-35 MG-MCG eCW1 ([facility]) Cyclobenzaprine hydrochloride 10 MG Oral Tablet Cyclob enzaprine HCl 10 MG Cyclobenzaprine HCl 10 MG 10/04/2019 12:00:00 AM EDT 1.0 {tablet_at_bedtime_as_needed} suspended Cyclobenzaprine HCl 10 MG eCW1 ([facility]) Cyclobenzaprine hydrochloride 10 MG Oral Tablet Cyclob enzaprine HCl 10 MG Cyclobenzaprine HCl 10 MG 10/04/2019 12:00:00 AM EDT 1.0 {tablet_at_bedtime_as_needed} active Cy clobenzaprine HCl 10 MG eCW1 ([facility]) Cyclobenzaprine hydrochloride 10 MG Oral Tablet Cyclob enzaprine HCl 10 MG Cyclobenzaprine HCl 10 MG 10/04/2019 12:00:00 AM EDT 1.0 {tablet_at_bedtime_as_needed} active Cy clobenzaprine HCl 10 MG eCW1 ([facility]) Cyclobenzaprine hydrochloride 10 MG Oral Tablet Cyclob enzaprine HCl 10 MG Cyclobenzaprine HCl 10 MG 10/04/2019 12:00:00 AM EDT 1.0 {tablet_at_bedtime_as_needed} suspended Cyclobenzaprine HCl 10 MG eCW1 ([facility]) 0.15-0.03 mg 05/03/2019 12:00:00 AM EST tablet [...] A DAY FOR 5 DAYS SOLD: 03/23/2019 [facility] 137 mcg (0.1 %) 03/23/2019 12:00:00 AM EST aerosol,spray 30 SPRAY ONE TO TWO SPRAYS IN EACH NOSTRIL TWO TIMES A DAY FOR 10 DAYS SPRAY ONE TO TWO SPRAYS IN EACH NOSTRIL TWO TIMES A DAY FOR 10 DAYS SOLD: 03/23/2019 [facility] Insurance Providers Payer name Policy type / Coverage type Policy ID Covered democrat ID Covered democrat's relationship to luz Policy Luz Plan Information [facility] COMMUNITY PLAN [facility] [id number] SP [id number] SELF PAY ONLY [id number] SP [id number] [facility] PLAN [id number] 0 [id number] [place] [id number] [facility] O [id number] S [id number] [facility] PLAN [facility] [id number] SP [id number] [facility] I [id number] Self [id number] Self Pay P none S none [facility] COMMUNITY PLAN XIX [id number] [facility] [id number] 0 [id number] [facility] [id number] [facility] Health Maintenance Organization (HMO) [id number] Self [id number] BCBS CHILD HEALTH PLUS [id number] SP [id number] [facility] COMMUNITY PLAN [id number] MEDICAID [place] [id number] MEDICAID M [id number] S [id number] MEDICAID [id number] SP [id number] MEDICAID [id number] SP [id number] EXCELLUS BCBS B [id number] S [id number] BS [employer] Health Maintenance Organization (HMO) [id number] Self [id number] BS [employer] Health Maintenance Organization (HMO) [id number] Self [id number] BCBS CHILD HEALTH PLUS [id number] SP [id number] HMO BLUE [id number] SP [id number] BS [employer] Health Maintenance Organization (HMO) [id number] Self [id number] BS [employer] Health Maintenance Organization (HMO) Self BS [employer] Health Maintenance Organization (HMO) Self Problems, Conditions, and Diagnoses Code Display Name Description Problem Type Effective Dates Data Source(s) K50.90 Crohn disease Crohn disease Problem 08/25/2019 12:00:00 AM EDT eCW1 ([facility]) K50.90 Crohns disease Crohns disease Problem 08/25/2019 12:00: 00 AM EDT eCW1 ([facility]) Z34.80 care Supervision of other normal P roblem 07/10/2019 12:00:00 AM EDT eCW1 ([facility]) Z34.80 care Supervision of other normal P roblem 07/10/2019 12:00:00 AM EDT eCW1 ([facility]) O36.5921 Maternal care for other know n or suspected poor growth, second trimester, fetus 1 Maternal care for other known or suspect ed poor growth, second trimester, fetus 1 Diagnosis 10/30/2019 10:00:[address] [facility] Surgeries/Procedures Procedure Description Date Indications Data Source(s) NONSTRESS TEST 10/11/2019 12:00:00 AM EDT eCW1 ([facility]) SUBSEQUENT CARE VISIT 08/11/2019 12:00:00 AM EDT eCW1 ([facility]) OB Visit 07/12/2019 12:00:00 AM EDT e CW1 ([facility]) Results ID Date Data Source [id number] 04/02/2020 12:00:00 AM EST [facility] Name Value Range Interpretation Code Description Data Mayi rce(s) Supporting Document(s) SARS-CoV-2 (COVID-19) RNA [Presence] in Respiratory specimen by RACHANA with probe detection Not Detected [facility] This lab was ordered by [facility] and reported by [employer] ID Date Data Source [id number] 02/27/2020 09:15:00 AM EST [facility] Name Value Range Interpretation Code Description Data Mayi rce(s) Supporting Document(s) Follow Up [facility] UZYNDs1uKwLROxRtWFPaZssEQJqzWRqyQEBiQ4X4LWulDj5VVCcqhtNqPLKgWi0+MYYkCQ8ots9nHEIf gMy [file] 08AbZ6O6H6bt0RitHHhqTkfoswPfoH5GoeJuYVl+uiqC6O5AEALsTuauuZXm+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/LwDWcJ5LRkgBtT6T [file] Km0ZmKnR1/u60XW8u7R86uiyuf9DxedUAJ1pA8gCsF+Kqv+GsZH0z/euWvw1+stBB8kbWFcytqij+skilled nursing [file] +clinical applications manager/TBk4S+3DYjAQPTA7ibHQo6f4J/jDXaSLA42SKHdMKi8D6nk1S7enBegg528KtDsY6L9+2bMZJ6s LH4N+HQW4Rq8AaXG8aq3BgSGc/r/FQMdJW/yvgSjgpAGctJTdtXfWL7avYb9diq330NmPxXARYcw45gA dWIXoVhntkiqGltteVa/E0kpatYzgiv7EZ9kFtC32I fpN5o/LTZjTD/E4TtDz0EEsRYuHi3Dhba9PlL4foIdjZJsFbX34xXRB63cbeycziBr3uZqk/qreNBol9 Cs6NZO4krPBg442qfwAJeGNbwLBILZho+bK8YHioIZIOdc/pNi8rWzG+FnvwJ8bKFefq1P/MoO3t4gC7 obK6koaZv6RZHi4NXD4obJDMPbp9x9rsNQ+AKo+ua0 6d+7fX9zd5LCCsV4g7PeRknz4ofh6D9Dx/jq8PdOe5kD458YSSmeT+ZuGlr7LHOua68sm2eWIZRDUWHX mFNVKasgwgTbrsNHy3T7Cu6jVxL1cSBjxsubmNni0+uhcKYOeBH36xXY5CnDoGqIw0boN/Yw3afgvTr7 oSc3RtoSUDac7jEpyOX/e+qxyQ8HAsZvgz4EB50RCh ve2uGhhDJNrwl99B3rQ5PMkXMxrwAkNJbhbNVd2+Khhqe0L954dV31Q1kkhoqS8HT+fcKOfcKvmWjhx/ rs9e0U1i1CooD5d3+FxpnD3LocyCxzninzqAfv+6VB1a3Q7BATE26yDEtAkJmM/vv/GzD64IUSvWAbhF bIqlvse8FEOfQrnUIw1PvOKIcLRpUIf6Fj4HGIB8eR cQciSkSjQLSUCVPEiZ9rnxK6GkigZ9hVgr5fqyaApd8PQy/5tHucaVGXJtRF4HE9dHuPYGfGwQ8033iG 2UKI6MNjjmxpsRdcixRotIAdkJcqQvAZQCA+NxcTwsx3Vw0mSRVkEksT/9Pv/oFf5fmi1ZVavm5PDcas uh5VJyO3rwKmn5KMGNSxpmokwTJu/e/D7fEdez68Vv G7QPtRTjkI3qL3cGods/XcHrqTw1/zCMEvxGu5DKoXcExO4+R64LRcvi5rroS9k4gvR45nOAZjhls7/N whitfield+m0ifKpALlbRDYsdoAQ6rlYuAk9fZHGUn+gBEM9jpVQqhApv4K+Jj9BCSPFRi4qVvj7yef6xpeRSgX [file] High School Teacher/QVhXH5YDp5LWyQ1lfqvJ5ViXwYFJEXZy2JD/ZjJCgq2/S5u3xZWWmNKD+47zFK/IxXokQaxp4yO7 [file] 1DKt8SIoidku3JKCoanfQr3vVWPRuWxXS6SG+rzOly4sJqUba7pzGW5qXNMfRMCNABpwXmV2Yi1MW/BOOKMOBILE DRIVER [file] vbXKamIZYK+Z+SECURITY SYSTEM INSTALLER+ru9gfhPhGfHbgjT+wKJcExc0vJ [file] QaSTiL8zJ0dIU0uFJfejQdbWXJYO9tpwMzAdxd65Lo4SFe1yygyTl79L2b/rdoríguez+Q/SFnLUWQBzXqB/Bz8 [file] synchronous motor assembler/ICRm3psfn6cMB5ers+Qyz38r66r1OMWNJNjGq3N [file] [facility]+Du+yum/XAm7Qy3rZL3vQWlxE3Yr1oeszLUUmZpTe+CSIwep8PnwYtF+la9PinGC6ConHdAJNRzFv [file] BAsrPptlCi7dECTwcuwwKgDH4OS+Yhh9RHcyK1XeLdwEHm3n+Furnace Setter/bjelxf2zNk0e1urzhMRr1qdk7l4Z [file] E2UVc66/ZT6p0209fr9O84JRFgxdg2B5Kh2aQ4fVsq seUVDqtRnfeKqMjovReLKYch/IZo3MilVrkc44yGZh2lPLL9tdI5PwouUgtxzqt4TJASBu8fQ8yZKxeV iNA25Pu5JoCqq6qqQPPBRg95lQ5hvof3m3HN7BK6h7h+sK/euQcgqDqZdfKt681THI3eltOVquSlqSOy PGwXp+UFX0//FuXSvOkZKN3fmydUKgOwCey2uMO7mp eQwHokm7FB3lpkpg3Au7D9Gmb/+q8g7VxaAYvKeN1XFV+5JzGkwtSVqwKVGarkqFRB5KK9+UI8BdNC+a q5w6MghCMe/Pq8OwtTto7Wz3ecZWVOeQfZlE/khnslZYimVjCPK4FRr0ovDjdaWnLzZXEsFh7qVbHPtI 3bV/vRPVYW+kEVpqNEBrZBfaD4pXCtF+I0bcjzx49m lu6qQWQvB5fCL6M1VX3Z3PGtIwjUK4PPm1+c3p5wzyWJdarrl+8Lx4g95/GXuFs1FMwfpos4emFkz/x1 uaI1KbAq9HF5tTkEaZJyjRF5/+PMx4nHhCyG4dX975ukhVrfdEVaQ8v18AWD1jEJY+nOLhwdiUI/0Phx JQVezC2m2ZioTTyW1dgh7l0UX9g640jOXod9pkR8yI z+Jfm+otj20q0xYEHxfcw15YEQAVQ5V0oFQqOe8XQd53DvZ/Rodríguez/97wuGhomP+zdLvqwX/0tCuytUPTSj [file] 5Ey9fwM7pOZS6GlPrzm/event marketing specialist//SbOfJPyiVr82GOlOqGTKwiRAKQFbQiLIn6BGnBofCkXCfNJUKEm3Kw3 [file] WCcRwdfVDA9F6Q+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/5SKUo60eh2RXXQ0bxhYAIh+O [file] t3SOXI5+TuWi4o5uCHbI64TIxG+AY+SECURITY SYSTEM INSTALLER++6OMBjRom [file] 4eNetONHEIRD3SxYIhqWMzDOXKYU47Q/ZD/SawBHZH ULmK/kNZchyNsl0K2g2u23o5UC4udL1vsba2FrmWhTNoCk4rVZI+mP2lTWfWdITD1Xwl5f77v22XweWe 5FQUPonV94IhW8tkpY5oIA35tfOOwqcQP2Z9ZlnVu73rsgM+s5exvRa7PBuznZe+Afwn0WNkq7Ixl5Zz 13MrQ8kKELWS9+XFZC/Bh55VeRB/DUWWMD3VVunHLZ J7h4M9a4hdHL2qycmFl5o3/zvO4Zqvn6naEPd+c1SLPDV/4e5ampdSjbqi3QbK4rea40uw53pWfgOXTG 28WTiymgdGleBURi8CuWtrM4tcmttkTl5p63TgETV992DTDQoNZZ8ow4JN6Vdnqc/ARtCdR5UO1uqwi4 VnLpQ/1d2RzIJzfU2FvBNjk/4YHLevvEnLrFGe89r+ PHwXr9HQsCQk2+hCIX+xyDzmTedYxxt8VqRWYs5aCLyPzSUwy3xC9eUQTKdBhLsoB7jkn9LiC5/LtUiY T8vtUU4QSBl9cS1tBAGRg5vandvEVXEjsbPoHXrY5mz6aCBeAzs/QCLAbO3GOZUhkybRQGfIfe3pHaIq MLWMpG/yOlZG59hsz7LRCbI+9Y4USGX9GHN3IpLBOl UJteaiztr2vxH1O7MGyji7/KyrHGg8ss5IsaCyB0UUNZjHciGtg+Ijb/2c03tMXPM0IEnT9hkkciRSru k+KspKHWYP3a9nCbEmQ/7wm1MuTCrjpUIHSrsmIqHWNdfI3uOV3iqC2oiN34CWi7f3MLzw0fmP4iwy0F 0/ubC0d79u8fYjEVctHhUlRkIPix4YaAVsl7Bs4NAh l2jaReOizgmzH0SoHrM0mTVp6mJxljsrh8l8Hecmd+N+4LdG0XmdM8uahQRRA+Xc3+qAER+OMAR+/yCjT 4fhODecAB0UcoWPBwmjcmU8mrsrL4nvjulo/j+3fK47K648WvfwUf0kIMTgev88hoEu6TPwmjeTEzCcX phZdTYRWu+YtjnScmIES2F1YaUaXdfpXRv2wD+SjuN 2mcwCbkqa6Keb6uy07LES5gkEsrqDFLaOo1Wj3vw2yvOH6f0Fl7ssCja6smnSGkcTPo2klbTEI1KTYKq 1hshuX2YLGs9r2uQKZCO0OHmuGAayuXcTkUi8o+kOfSVs704cnmK5ffR3syw/d7LiCTRy5/ufLoLDCgu MqN7v2FGrkGPxXnKLjgl3JN+UPqboz4WJM/4Y237HC gulvT8ehQ+4v7B0+wiJsDbFRnZhZAok/OG8wIAP2EubwWBWNFu9m3yHfBy0ufxFFfnr/jW2aK08BvzCq 9FHWuSUD5d97HUNtYEKAushs9Lwz1wPBg91aWlgNeBAdHsMwL2hqBVV8vdu957RcVaDTJr3D5hPDoa2m lfr5Ho7+eu4vaoFYsQcd6l+YtFxTQSYx2Gb86USaq4 tDNoI8U+oD1ideiJBchyYxQjufh5Ff2/C+qOJsJtHrX9K2fNsN4bJaKGZAsL78Q9WA1+W4J+dkoZsZLy GdJSj1E3EH2CcvZuwwZ9Ai8eI8wGhun+o+/olV7/10G7jGdhXAGG8sIkUfakfX8hxCUuo+tAsNzstVLJ ufmEyUSJl3Fd7kYQWwTzvJwBp0MxJV/jNcGOUtVY6Z LOTXyFEvFkOZod2AxQt6c8v/iAdXbGEzcxwHGWT+H3Zuj5OSI+sAq5v5z5RkIe4jNsGDxGoS5kKVH0Ug ruoLOVURomEKWTp6OmWsIiI5RNcFrnvczMuATuFy/78dorTqAoZimbBeQI5FJfEdVJcsz3enPlCVcczs l2cvWnknHDAoi2PWXc7tLC88lSDF+I7VB+U5hDq0Uc AYa16FiO6ysBs9LAakKL7KfWCIdpJ5sF8sqVSXxnT4t1x1NliunSi3Ns/lj+pGu/SKILLED NURSING/lamZDVA66YZL [file] 6tmyf9lEysec7a3Y4qB3w5LljtzvmXZ/anMl//0gRXoiFLqFvCsIaX+0YfjcaA2I3H/Carlos Eduardo/Nmpt61O59 [file] tasha/jkLbwPkJPuT/rffE9/rvTWI7K6TwMZeK5YlNdW7 wWkCk68lc9TpnNJcaGssZoYIE/v+pBTiCi3UzL2+VKqXyeTQ94o6dSVz+pTm0xz24pmr37fNR0rEXhL8 iRzju98YeR4EQTYChmo0JBGLB5ktOPTpION7Ud6fiWV8Vx1hDgdSb2GNyng3d1d1xgY6IKin96SfVwrf sPvURXI8CqqO+7fGV2hOA5vHOxbSlBSG58JgPvfBKG WTncV+QtH5LbwpzfNuZwfXc3kMJfkHbEcGs07FPR7asM6x9HTaE019jeM8ys8cgxomNmKwqZamIme+sT zLxajk6QWUS/6c4fOhGF9IiFjSFPwdRXnLk6RpislQj6yoXzoaNMMu3j+N/C9hfeNbl5LHTuzL1ZDdzP BQCebnwtOnoWhar5qr6d1RbigQ83KEA2k3PR6VK3cu 04N7AeQ9tExz4uNlNfGL8n/WMsAFi0Gf6iRBPtSP6SmEp+CYD2hp+R31pGtPgNdlmtYeJptlu89km9Qw r8PWwvPkf6HDgceojPXyukr7m6hkAtbiK8VH73g8cH+g5N8RLEygCGUq16/UueAqD1V3DvWl9XvukMK1 lOHvx5NLRphoWbB9OXXm0UOSBZdhr/XebbN5jvJwvS +Q0wtxS4Ycs9MdZOFBw+EQ2hmswLTKvOnf15uHm0Zgiw8s2kAwX0kntPmP9uTzpFy/IyQxwut5ein/Ut khn9gcFjLTCblpjo+IZ+rV490I1wsRvXCKbYqFXqvNev3J30AzBRgiPDyaGC9wnXLP8PBnGxC+zHVsbC VMtvgd+q0EJSyWGRT080gc/URpmIyh0ifVJ6tjnbJv LeY2THL3YisSzrq699PDsAlETNwJldLChoKtmM685SWrIidZQlkJN6vU2uSwqvNXAV5+c04hIEj+jycw 5kKfq25teR+SyD7mtj+gZNZs4o/rodríguez+zLbV7bYXM56GjRRqVFXv11By/kjPOd3fFubve6ONbV3TKs+ijh [file] iYzT+bc87ttJ6mVMEaixfkbv1b+cjLxFsLqgJ9SP6EY9efQBb7NGRh9NVDiKANgypxZYhPPByo9u6/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 [file] wE28vt4o8FDDBwj1XUFRlp0qMTKM8D2bq3xwSsQfVUnRacUwzwuL/SENIOR ASIC DESIGN ENGINEER+rwYS0YH6mfUGrdLTflk6oZj [file] 0EE3PDOiGEpwBILZJ/sKgDAoHQD9MrQ7SkgyJLg/rodríguez Yusra/pfSsC9Ye0XhGgYvYrfQEyaSt7uGeJadE8B4SdLh0kq2tLuwr8k3tqaW/mK9T1RQdPSpOKcl8Bi8 [file] CARLOS EDUARDO+a7Mv0czmXnS0AwgwP/92ntaz7dgK6aF48rRRrD1aKfg7RpecjEEvqhvw50aeY/lGNMhoE97OMIup QT/nH//WzIAjQ9fWb4sBYTRSobHl52XdYoYQwzEiynuM8DscwWXsDRyHvrha4tGs1nUpCGiTNry0c4P/ 82msV1OciM0vk5ODooRmFCVVBMV7KsKNR32r/eaLqo 9xhxdBr9+UNk+TmG8wkBETdyKHsZIUD+SrFrZgExWBQ4ChoB22ZMwDPWyE0beRbIBqgwgnhy1O0Frmjn hvDN4oIbVH4xxxdtaDVPH+HMyv3I5Q9YRXgvvCj1J1toYlZZZwwfPFf2yeNTIaw523ssRFYFrIhkcT8Z L7QMglOgP9y/Fjqr1x7vtozIysoqqX/pO2h3n1WFat +Ya8i+QdADikGrZuYip7lVIrfu8JtscLlhFS1Hi/FsT2j6+ARB82N8viWWzO7OzWSSvRwdu0WMVOLpUk Qlo9JeRtxVRHSMRCbOpkBAMSsjNUthHUxsoYg1CO5DwlUAXBF7NRky/i+iZGr0CF/Gb/Q+uSc3crYHm9 ek8acNEDi5RUzqqsrsIKPKQ/k3JhJ52DrjtTpZ7goI +ECTg1KprxIdDUyn5tQyoY47oU4MEpp90Nyf7KLknSTNCDmEWSQ09/J0HXxA4PgwOAsnc16w2ytgnmU7 wg6a1b2ob0G06fxDMwKPR9aLHkyppqc20qMPWXhqitVA36o7ck+ybzH0zNxVAAUDjwLTCO+9XNXRwlkp RhkaaCX+VMbjwtX5aSYVELUQm23Snjvm7A0QA9xDNn pu9Uiy5tIiNUdUnJSKxTDrOq5/1Sac0jMjQLK931sE8KiRKvzde9B3uvK/FGnjawSxKlePCYwxqgrXDK 9BM5TDyXz4E6eQb4GZHN3cYnKbRdcH0CcehCsxP6PZhwOr3WOiuM33CwKoOUktHliO3oA6JaX3qLRq6h vEj+BlvL7vRkbd2/ntiRBDw+Dd7CSECIgSFruF3pjh STuqY/z92EPPgHb5SDTOa2Lqv1F4SV36s84FAMeRHFxCyIqgUIVhLGjGfkfCbEYb/Terri/7iff/t3Wl+Z IZtcwCoXusmkAhj2y20a0tV0plvP9bZj58zeB/Eool1Oh1hO/BtFAEmyNOVMA/mlJdU0kx9+tYDxk3aU 7k3qsfc5ZwttnKXra5PqvgsyZhYDwjwooNrw7MI95Y [file] pIB1L/nSlNbfk+i5NN6Yjf9ibPoM9A2s+kv/cVM3SFhdfSfD03ZbVQ/transmitter chief+ou1LWtweJTS2zGtoXb7AN [file] VG3a8srMjz0Fsn47+Furnace Setter+ipzpdeVX/ocR45hG30Faa0 CdZbZBEgPoENXpisco6hGJ+Ya+sbTteFPQy3HvhoBKHrTta3MNFGwsszNVD771gjVzF5qCiBGoq1s0t4 wxh7+zLF6i6/EH3Ti2MFm2VZZ6kzIFW/DELq5xxtGWiz+tKIiiD4ct6+XJY6U5pETeIH83acgGo27a+A WxNRSDqmQs2O3YEbsJMp1Uo3MD94uXlcPYS9lV92DH ro6bqGqoPj/Cyber Systems Administrator+Ca4T2SudspBx05l1Xz34Opz2DJb7Fl/v6H/fGOwflPnqbChStk7PsxlyJPVHCvA8y [file] Furnace Setter+7yhQF6vIv9ml5PRrROu9i/TnopPTl8+kgaxmSUQ [file] 8Kb2bt45fZq57m9DUuwLXn5m2cn93Tn+uw5o01WO5Z w6qmEFep/l26+T+asjSCMs/dRRdpmdE4J2VhQhCGv/EVQbsGuIOf5TnMay7o+m7Ur6y+YzxKkI2JzE0m 1KuolVEzAKJb6NLf4Tt4xluT+6V08GyHQn88DPIoDTm/95rztvC9fhj29W5/btcmZnhjq4sq/XVjIv4v Z5QS76IfUO03bmCGSlfeAW/wI6dKNWvX/pkcb7/xbz baPE77J+nW1KyN/q4zW3/6UsA66cHWWBCudmQBTYYZ5dGR29ZdccIzDqriyLJM3lmVNDvumJMi6vmIXZ sZMDKLfwCohkpTf7aX1E023b34fkxNa6RLGaQ8dswohQakyAntsTa7D5upilSkbo1rZvreth4Wh5tXlt rQAHukQnmZIjXFxDQ527ufFgbf5upy0F+4mDxkG1Hq QSCRUuWhudrWVJmndHBAvBwIcqTY7xSJh0UM6IlsLO5W1I5VSJ+seismology teacher+5/lwnSv/iheOVyUN6MRTf7LRK [file] 3noyvbq7Hz+nelXbJEVa+SECURITY SYSTEM INSTALLER/1iH7JQM1S4LvlnpuQ2sKHg6+djMbYPoFGUkAz4bvAb0zhDCUPQ0HG41Z [file] JDfq9H3dhwUw2Hn3paKloP9+d52D09XY5SZHnYP5udq6ZcPCvHNaC006zkionpTEx7Whjw2xpddBD+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 [file] [employer] [file] HjODcHQd2u99hjzdtwYFVr9olr+0AaXKX8R5lYvEVvdszRhpb1iLpWfu7DfsZuWpp/vp emerging media/bGYCrv7ymzP [file] cTtNOxczwEHs0DmXTyFW07fQBjBFf8cAgEufgDJdF4WrvVS7KwPpVVW7qDLEU3XZMeXqJWdQbDuy+KIRA 0KOneg5NP4nClgIyt3eqmlry13js3jDTtWBiSJ4LEdK3+z8yHWGWzNPGJJFpTlSXxP16ig1oCB+Jf8VB 7DQmZDJfbmD0Qph/z9rVgK54sZ1ukGuRRYcW6wL/cW 2Ce076gWPOSeFi8LkwPceI7VM3Y6TfElbKVOzmDW26bqUpCVxGBKIsTRE4IEGOJnXnhZFuvjf25CgA0T KZsR9krBDTjkCzp4DvoO3Lmwg74ZfvoTixb394MT1as6mZ5VnisZo5FMFKB9Az09WrU6eZ2lVIu5QG4x fKlft05oMq84gZDYEw7CHUIl2rlFUuEAz+D3PO0ZSh x9P/c/51XTqFzpBFaB87CwEa2itu9WHtRTI4Jb6jkMcLJHjZa0bW8ZM1P0IBnp+G4v0MarQKIRw7IZ2P 1ZUYxbKB9cFg060WPT8iV+iUPXysOorgxmQztSELmnNMt8MD+XUutUqPCSYB2WDZs3L1XnNPxUnxyLm1 vY5cGcQnAj3q1LAHM/ZpImygGjI7kzfqgeydu8seuz hQREyE3UkmKVDiTIRfK/dXO2svkiHMCa+htPZSLNU15UaUelFCh1nqUCVyC6TbB8Nk4kHEV2QVgG/gJH btNuf2B8Q1RQJoPE/hQjhju3eYQa54/ZDUX/Y+Op9LCk3nlPmj58sMwz++lm+XJf/mUQ/B+Dun/nhlKi Zj3d0tEams0zmVpe4s1QE/9fm9YBbbduZ0DQhgXxaw NmwMU7kOQ8CzYoyC3VbnUTd9B4VT673QNrqyIgrEib1qd2M6wdlrpK8MXwsrt0zHCSChzqz2ls1sIFHF kpVYIOY6sar3a+eXTcI2iDdOiMLWV8wYsT1GuG3iIeiRXZmjTNVeHTyor3ZrCy8QJ7+2HzCXPDguiDNV L0/9Sx3fB9idV9wa5I/wdAe0CJ/0cLZXa1HI4tKlKb 4V5IV4Sqy3fRiWz4B8elrl6rxhBjzUEaLDm/vp emerging media+X5B7RyP3VUxb89+YL4qWufatH/dhetko6Dmnt8hyQ [file] jingle writer+aWA4uevwJ/ALT1pewu25e6q0IWTuwvru9k0dzB7sriTfduxumOcgajabqC9mUmGPUrE3ctYx9yqVr [file] XVSHezYRAGD1u66QvynQW/84YRAEg3vQp035UG+editor managing newspaper [file] MOLD TOOLER/iCSdbQnNEYgGJ2xNKojFDPTjfisSbXM9JSqTIPnCFrTjxD4r2NZwBNb0LzK0c60S3YQ4cShqw2b [file] Rodríguez+tkhzcvP67hbOq92YLM3hEx1jALOrRBuO8+cWzSu5JasXd/VLQTqPYC/f268B082kDpUeH6qS2bflN [file] 77ep8loe4HJDo4iloHpOGBTfE/Beh/security system installer/4XiCKaa/jDZT78gX2RCIF/viXIaTT0n1S2jr8crck2J0Si [file] RODRÍGUEZ+eqPxKfCh1g6CTPTDWbh1UoW0ocshi//Uiatloaht909Djc3DWm0r4RF4FzfPxbYGiNdGTmjZRJeYK [file] WFp+5OEhNtVhzbBn3j4XNyOplOfwoCMmJ1Ix+U+ [file] uekwLldREzEY6ICqGxBA0zuk4AJhW8MSF7cGUvYu8TSuY7PgW9KH5WGRJWU2Q= ID Date Data Source [id number] 01/08/2020 08:00:00 AM EDT [facility] Name Value Range Interpretation Code Description Data Mayi rce(s) Supporting Document(s) Follow Up [facility] CXWTYo5rKdGWPtJxPOBbWobUARcxIMwlIAGqC6U6NPcjLl2RELyisbKnOQHdZp7+QJJpPJ7hol1jODCz gMy [file] T1a1tlpO9hzVl8/AlQLGAfB5n4lnuDrCFmKEvA0aa8yHEFmWfEbT+s06KEpJTi0hCBQbj0kIAJLO/Carlos Eduardo [file] WTeNViMFTujhZmJ4Y1W5UWUwaTJzu+swd9/CHILDREN'S SERVICE WORKER+IAXH+OjOhszywYD3Z9+5n7l5TX7L8Gv8Gou+7Cw60 [file] vyiDQSaZTqvfy3WO51dI2Pb0d8p7aE+cloth finishing range tender+whgSoFn [file] 2/T6jlHIgQUAf/CJZpPwoYAc86MDXs5SaU8HrEHNtM0gyyy+Rope Silica Machine Operator/UVHGbLoJ/r3fDM9pTebKPHfTDxJsR [file] emerging media [file] 2fDKeCzVpTs4KwlXmuvHvjJ0ZMy+jL9MrWaQw5ZrKoQhYI6yqTl/BCE5hLYnJAI3RdDVvYPN0xHT/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 [file] iikuJhNy95zGHOL6+F80Ykox2HNEWRPiHTqf1m+Julio Cesar /PWUtko0E2Qfii/VywjocxvpED2vnMCDpEsE/0DLvOLRFpURdJhRe12ru/Cuu2CR7SGG4EcJ7OU9MOif 6exfSZjUXzZX/Leno+q59mmsZNc1uW6H++aT+OVqud80O3w3I3LXBMkAbalp0qhqyBeLEp4gvcScaB8Vr [file] L+XUGM190G4DM9TDwueZp+9J22I3vTfz6zIdodD [file] nkhWPEnijGmrXFmm44UDxu8l2MLk4jxNTVs3/RODRÍGUEZ/GCil7EY+4mPQleZixK5CZHI8a1RDAWqUUHSIAN8Y [file] 0P2pRN32qSqpVOTVpIMkBX4J/z8Iqi7/senior care+V2p+H8 [file] 5AcW6MsLE9YHbTDBYshkVI/YpSA5uq+SBwYF5XYc6nbgPFSiJuuvdx+9/1rfA7z4ArGNdGl0kuIE/García [file] CVjUsHGSSx5WzahmSa40iTQI3QBTmDP0cWbe2pV8jRVvME5syalrZzu7+3CiKGprVJDW67sRxKo7+CRISIS CLINICIAN [file] Maria Teresa/cDcRM16/CBy5mGBxvMjH7/YY9wLAo+Zakpv/jhIjYdqhmlHJxg6T8Zy2qazI4D+c0+SCqCp5UBnt [file] c6RcBM0RruajRJBdX+A7MThvo/8Bjfn2XUgG5V6ihUI/BG+Rodríguez/aUm0ac7rEwory8nUtH+upkgHm0itND HfnSnJaLQVvFf11mgRepB7ibalskpT45KfCt9z+jD839YPvulLvhif47NHKhcDiM0P0Gu8GG8EqRe3Sk 5kpxClPIb/+c613YAeyrUrCs+5lABDMHfb6lUBloT2 rqJfm8PnQ8/6RDZtw+oi44VZWl2DFlWi/B7HjDngqwQbWbWR1k2mO8TBIJPcyaFzXI/+Ur77a2DWnqG7 KO4BRednmp0XAHvfHBYaSiUiK5wSft3jurLZjIJqcY+UWQg8RQsrhELoEcriEqJv3Gu+XmbliJMxdigb lEl90KHu3iAruj+aLpvZiKzybcnW/J+mVu81RJowI7 crtKr9N7LTxuDJJ3/Bl5fEjz/fOwsr5qtjIVtOLzxWNKY11m3VsNL/18PtpV3Si4ZhEoi1I2ey6AtvrM f5v82uLbFRcFi2yYHHlnCiXyg8HA0j41kQnuSyg0H4K0QywAQnER/Vx5pfvR3aXCpRbDb8+eFEN4QzGO xLDuyWqu/uNXgYs11CS2p2PG23LaIhvP/aS+vCh+38 FsuWOqV/xT8JhfVlyrMaZSj9l/cUIg3nITbFEv5gpgrjHqzN0fqH8divmgtvF3h9Gy0QQIdS5DxOCJVM H7WWJBMfIvh2FdmQkz4xgrpQXT/diaz+8DgTzzOiRWECt6A7XTB7fKWgoEkSzsJjI0/gfR9sGduhcnYbJ [file] WUAK+5HWc2aE2nsPF+EVB7c1pEzKJv5n+Rodríguez+AOWTjl [file] RODRÍGUEZ+yzUtq+GvUwLWD6DPLPhTfR9bdOGj7zRvhab/iKQGK893oD2KCEDOn2vKMZ7cn99zv910+2g1RQYx7 b7o+YnDNO231CyP+Mgx0+HH2bO9OUl/[place]/h9vcs0D [file] ijVcBara8qguOuSHH0BTmkG5AxPSsEpuUmT+r [file] 6bsfPLO6iimPcM8Jsd44WgTyoXrLRLD1CrpPRSM/RODRÍGUEZ [file] hc1dtoEgorP7gYGyyHlHo+g4ry4EveVK7z1YdqFMIhwx7pa604ri4fiiXObL/MACHINE PLATE STACKER+RECevKwrXXBYE2u py1sHSNqKxO0HqHqucDPn4dnnJpFf8m7v2M2oHfrjM dNQ/XXCcZfTbydZJs/y74Jg0xiOJ2GTbBJjnIEFC51rz2RbvjbCAh89SOCS9ypbqk0neGHGpi2EEUrIC 7/Zj1KwZtj2D3ab91wq75A0Xaw+H83nZe9LN+y/mSACdszdz3lR/961MNAxrMYrQB+J004v1en9UU7g+ 23+ISfcy6PJncsvBqwtUwL+wuWg/bn6QdMDJybIv65 2dwoDc09NoI3p4ZzokefQ1k4y/feUk7GjC7vk3pMTo/0zYRK5fG8ScFlIvHDOQsYQGFoGTQy+9UQjJzP HCfkPJeLS4aucAsrka/Px6l9g5HuzQT2HDAXgkur2WqVxKth0r7kNW5nzNl/NK8H3KMU0nMP1VMnXMbl avdfHFRAZ6YZ5g4f7wF5VphMTrXoIYUFoqyKKsM3oT 4O9YOebQ19SPavtENXjpV+zx9uSY3fsSwLr0CmqXshglArgNQc7c+LCbdKbbIAkSYcDg3lFc363qVW1g ZLgIiChhYTCmwJwJyMfGu/iKsKQbgLGSgcosd0or7hdRqpVODvOjyXCIwLUrzwyH/M/dPmhsOIG/[place] [file] gEWqJcU9K/kbHCOq+QuhO+Josué/hvIIG8zLDMOxLaihShW/WlxPu2In9Pt99P/5zEGan5DbDbU9NR0Xko [file] v/2Q90w11n/ASBwdyPKnFfYN4bC9SaogEFXD9U/[place] [file] YjkjOJ6oKeM33EJgggLgz/vbg+760WCclNNYypMraXDHMcLX4Hjd5mFp/nUFQEbov5Dos7sAdHRY/supervisor shipping [file] r1+m0uQ3i1vrc/HprB+kOL3TrvXZ35iAqUKbFVW9qXWOpG3d/iCjZSFzapbgVUViGr/5ZIjjCBDEG/SECURITY SYSTEM INSTALLER KrAdqqcYcjaGBzZuqjNilOxGiGKFGBmhAhalLpuJWZWWXvC32BB5GEsTM+NOJI5Z9OC15hwbr75XB+VO QUv+Hq9f9whtcKZKFBM5sEi4U2VyX48Dnm4DDw9oib N9M7EWTgj+APm6Jarija1rS4/k88t5sYSov4ghowK936eYt6JXG21Rvs2/sPl9x+CKHi6bRM8XCe/FXH 2pKLfLkqMN9bifsr7Oh490iQFQbgHQoaqgL0A4AHj7KA7Om7XSp2fDg4LwOvyQvFujcZPZUYrOwsTnfb U1+9i0tVOYJMZr5XZpaJtQhL1eEvHtYA6crXRRB8p4 /3ioNQiqUZL+DCl25SGy5R2Q+PNfyLrTJLiW2ZWjE9Av1h7URZ3Vh0dcP57Rm9f19k8vLL4BjsHboXXj 2VteS04YijGnRz7bV/X2qFAqpPpkAt9tjyRolg4K/vRETKjz9uc2Fqmql8wQEqNrhI741Q60SdSBcCJ0 BKXs8YidtK+dGomD/XithaQIUA6M3Zbzsgzuy32Fi9 iMNf+kRuoMEYV0Ypm1m0Kp4sF15kuUIO/Jys9Bs7i88JZjNs2Wtg6Hibi12Og+JbsuzpWmvXOrsBCMqI isHuRHth0A7Mmc9i2IbYKZvsfiM1XwuEQL4XOLbvgJoftqUb5l217tu/QbNlFf5F0CS31t9dqqoDBWpk d2L1B1FeucHrebu5WADhnyvJBgkjw4e9dhoo+Nkdku [file] +jiVb2igwUOwxWb1OeY5SSyLFeXpWQbjyJWo2lhGLPv2J2fGOE3t26ibVi9AURrJ+vp emerging media/1h11Q282Is1K [file] TeZGu004k/jJflGFb1modoy3hfT4d9Qv/PRODUCTION LINE MECHANIC+idip8skce5FOGzKljcHj5cn5e5uUTR13kVFWwQh/J52 [file] lOX+9GRsQ1CjL4r7Y15AZdp54KOSIkO2M10EhlK0C7lRO3z/GxZqmQJWUAKZgQcKtHJ6RHEdt+kinjal/jPy BFPqR/nZ5/S+yZLH6IwL4toPkGvf/CdKqcmpgtApLoTq+6Cnx7svd9kHBhewP9pz5/b8ULWcfpwwOjbt fzKdvtoRJATYMQTb2QrW09UDeBTIMRQKLBorItYm8E jF4/Sr13WdKitL2nliCHJAPpV8L+/CP2fuHCPpun4ZqYgxS+wr5IFGyFnXk3AXQgbbgK/JpLlXlsYhVx qVEFbrhJMXUmL1tvlojeZcSXwcQpZVLrF94UAv1xTxmUElFkeqUPo8MBEC+MIcSTkva3ZlvTdvNOyuXe QoXUWLk/PVjBBVpWccE/y/lAD2XgYZdV4ZSVdsJeTv yBFLhkD2cekBQy384130XjQM9k+BpHupogS2FenEUgfBaqg/b5Pw70uE879yXA/qJjiiAnRrkjXYtYSu Aqn7Baz2X4y3lSDkYT1tCuh3wdSwOftfc7sYobqlclX/NTiG0GXgsXDkl/4OCZEILujf7IRYmuxULyRD zFh0fewyDXygbErTFr4D17ctM6rd457+ZBtG+wC4+X YNzq9kW8QB1biY9MxolKj/IE3QE/nhqCLrCq5LGGmqh4PDCx1DyoREme/mOl3ouZCmKBY7wXlbvMHXCv /Wj+KqvhOsJ+xwEf9cvTPpaNU+CXlu2mvjZaKRzU4ucHDo24OadN/qxe+mfGCyep+ev5oKQQ87muycrK bnkpVdHo/6JL8NE+R+bottom sander+pHM7/cv9lLoa+69He0g/ c+o/20/hP41AlA2Ry7UW25sA04FA6xRC2A29qEwYYAUDsiwBPXyDG/V5mZh/ZObpiSDCHpSlE+k6IpLm 1i42dQSuDNr9yz+r6FrRYc2qi83dlOhZAsZJq5EVPM6q/snShugmkzK/SKBs5YmD8elHLjSOj/v9dDy6 ZYPjW3AYbFpT0plGXjMwtne5pOH9nzCUrNIsLxKAUn e8k9YUAfAcsMI5tjkVpMkXz7Wy9tckAWdbbKP7HUE8BGeZHJt373UAwIgtFZUujPjDzepp2TqnrTG04o ymONnwFGvSWLb/2dcLxGPhWicJjCJqR38n9ocgTLqfzNgqli8jdCrUKoT4Ju2y1ZMr7eW9NAoNo0ZrXS zTbf7w5WolqXYBgPk4SKMOC5owz4FvuS9C1NTgWIMI F9alcz4TBKAXaFgTBW9imLoTrr0GLR7SzvpJ9SXeUojD5UjWXRWdBdK+lBh2LJX9OWHkfKsylfH0pCCV CdMD1IuLGaqDJLj5OS6hXFQ/xNGytlXLjCvOQX/YSI5rR8ecV8vOEoFkflP7/vVIEDjIYpCAYWPqzSKb H57Ajq8JzmzA7A7y3T0plzZ31RNwCuxfJOYdFF3wcV F5fVVx3gkE7ucIGQ9/WRi9ETm6ak8WimrCyYdQBhSbq0lvuhO6VOhUap+apUxWadoJy/33BdqLnJj09Q aetgBGsrBSf9kWIdbLYVsb+RU3+QONtyMOQQ4wzjY/NAUGxlSjkP427CUQW2xyBde4rQfu0R4t3Bb9iF GozCrjYa8t+eQf9Q8duMFj69TYUgNYC1Gmb2wvcxOe 9/Brown+ia6+qINWK7VTqiyhg0EBxZdSn0qf/JYp/f/R4A1FW/h+x2DOygjFZFi8uf5VBqW/MndpAMqoL1n [file] BFKXTIisxx/ieuNFsx2NQb+pwQdLBQVBYUfJHUWIOe Q7MRznj0101zJs56Or3gCAtqulvhriwISichElG9qDD3TDnKWmhVv+F3TbW04ETJarXoGlmj82Q9jN91 TUD32FH4TUKHdUn5W9Le28s7JFk4ZZUDcbBhPDP/CGClfi158bQguC9A8Ao5Z+aoT6I5nG2aIdd9cgWP srddg2Jmd9mu1wNzpzpPsjMrYlQRLx25FG03acpOg1 MFYCWj0PE/IAc6AtRfLXDGMfFiZYbJ0dzCeMb0fi6oatEE5KTfSB92ghJgTaVLP79gVG3DnQ3PDjqtc3 s502F0/PAMXpJkNQx5/jrSjp1eYtm56bGyn2fGPAQQR4WxTNwmLpC9nsofTYZ1UdQkqrOE1/QZk/qK30 9EYt7XwjIenHv6k7OjW2TkxYC7kKn4nkQPXhkPv3GJ Y1Xf5ON4mGnHv9LijVdg7qUrt4cnTlj3zUaxnG29k1ZkL0UsHLR5HCCxBeEVcHgCxPBSTdbSshaHhxLx w72M0xnQxSzZzsW3aC1TXlwPr7lzzjGNcKF/fM4sKZewj/L68EP76XI1ljDveO5vkSisbzOm8SSg1vUT ubQI/EjHdINfKJiY7tpmzq7IHcGwbrHyNc+Dh6b5gp tFyxhXdx+RN0BvyWWNwlJyLK9aLKtaEIhs6Pm7/YRHPN8FS5SZWf3242JE5sAZ2PsgeLEyOEeKs7pqEa 8Wbu7U92xW0Syqr1zN/JMuSUjIwq+MJzxYpQyLdHDBM5WaZrQdzze8y7WJvuT+S42lwJWMfrqI+6lNpS +GmiGNWInaL8iRPAb2DyudrgAvKw+mMNxxWNu8 [file] [facility]+urJcULicB0Xl5KtatX88hzD7iNab8oXHY9vUSttj2brx+ptXoeYz04nTATDNF46KhEpFfU [file] brj/x9vENjzrtRfBDncO5jDjqxEyu4ZkuFpSdoLl+Rodríguez+7EqjQEUMc/MD/Nz1jALZK/WMbAD1TgT0bCT9 [file] b/b6I83XwxFZVZbFjSg3+jx8do3ri0J3xai3Lqq9W0NOfR24+7fNFl+p3Mp7gXJSo7XN89W7O/4AR+jingle writer [file] fnmLHb9dphltMfZA+rodríguez/FUBz8jyGr9PAWJPXI4XaRwKqLQA80r+Tf/BVPomW1skRQf3grG00sraGXS6v [file] walking dragline operator/xVSM/IJldu9sTqOcqoO6ml8jxZOgEaPeWANufgDeDaQ58GtrhBvtom2iFtJxurvi3lEi/+aJ0X4q [file] Prom Burn Off Operator/jdzjncu+u6FqEQaii2pXtAj/ugjS/poyI7Od8uNIcL8jOFgr3kum0ol0JpOjiriGEOBFwTaHiwwL HKWsVx0CjgCNaAIU9NYRT1mH6qGLy/G/BKgV/dWjaoiBCOSyeHYEuyAU/avbBkbGEQWk7dsovMgT/rdn 8InoE8XrJZHL1HPzR9I+398atAEW/65M6B+1/6j9R+ 0/av9R+4/a/9Jq/wkp/pF/5B/5R/6Rf+S/jYiDltWw3yKi3BQfl8TqfXmpzdj1RzJ6/3P7oaIAj3ebZU KjLgSpDW3M47Xso5lf8OzDdUz0YCVcfM+d4kRwWH/f0lZdu4pL+4YkVbAd3iNg0fzKFGiW20UQOZNho1 B1CciUXGjb07MuJscyzaHaMVdAiXGlHGKH04QFr5N+ Btmnp+Riq2jfsyF57yiZiccCDh4fbwLHpokyY4jlMGUy0GeFKJk05o1I4/s4uIR5DxnYs/LAm8w/mBpT AjoAOgC3WErpicQIkoeIuNwFObf2loyfJNGmokE/5Z74XMDQimfRBD1c20BCXyVwG9Ugl8wWf19aOQV3 vbo3dH9vkda9kNyqPHrpOA0FRU8CW1qI+4X0Q0/f8z mqUI5x4gWUKVGF3n1i3JCQqH+KxR6ckaUomWckfiDc7Gt5ZG/VDJKOznoNEIczyn64tR1Ml3RKQ8TX0K uBIZy717r0/OMEQ9XJ2wSQ+sN4SO0EBpQe5PBZ0zuh4o2LsDNtZUFJ3g156/Arlin+UTKeixsj5gE4gMo1h [file] neJ3GmBNbiQrXPppTWMmd0EPngD6qNRhblf+H1aZ1NwtLEg2kTldot+Kdf3ktS8ZjIYTqDoQrq+z+School Office Manager [file] RODRÍGUEZ+Ez0W12DJOLulFp/RTbYalfuAyQS+5Q5BXYGak6km7elpUFtIhXWLv8sGvkuEHQNf1lnSu9We59xb6 [file] MeDJUZPNfxvsSrbJCwAQ7QKhYoZB5mki2HDoM8WAC8bXMwDw4TUZa8UTh0Ej5HFOARG5C= ID Date Data Source WWBC OBS LIMITED US 12/22/2019 01:44:52 PM EDT eCW1 ([facility]) Name Value Range Interpretation Code Description Data Mayi rce(s) Supporting Document(s) WWBC OBS LIMITED US eCW1 ([facility]) ID Date Data Source WWBC BPP W/O NON STRESS TEST 12/22/2019 01:44:16 PM ED T eCW1 ([facility]) Name Value Range Interpretation Code Description Data Mayi rce(s) Supporting Document(s) WWBC BPP W/O NON ST RESS TEST eCW1 ([facility]) ID Date Data Source [id number] 11/09/2019 07:13:17 PM EDT [facility] Name Value Range Interpretation Code Description Data Mayi rce(s) Supporting Document(s) Progress Note [facility] HHSXMo6dGcMRFmEy94/DGKckASEai6IbWHfeLWt9WRooAAQsD0UeUVX2gO1yKYE5NTyFGrTcGnOvESIx lbm [file] ID Date Data Source Glucose Challenge Test 1 Hour 10/11/2019 05:30:49 AM EDT eCW 1 ([facility]) Name Value Range Interpretation Code Description Data Mayi rce(s) Supporting Document(s) 72 GLUCOSE CHALLENGE TEST 1 HOUR eCW1 ([facility]) ID Date Data Source Type and Screen (D Rh Antibody Screen) 10/11/2019 05:30:44 A M EDT eCW1 ([facility]) Name Value Range Interpretation Code Description Data Mayi rce(s) Supporting Document(s) O POSITIVE BLOOD TYPE eCW1 ([facility]) NEGATIVE AB SCREEN (INDIRECT COOMB S)VIS eCW1 ([facility]) ID Date Data Source CBC - Complete Blood Count 10/11/2019 05:30:36 AM EDT eCW1 ( [facility]) Name Value Range Interpretation Code Description Data Mayi rce(s) Supporting Document(s) 32.0 HEMATOCRIT eCW1 ([facility]) 9.6 HEMOGLOBIN eCW1 ([facility]) 12.8 WHITE BLOOD COUNT eCW1 ([facility]) 85.6 MEAN CORPUSCULAR VOLUME eCW1 ( [facility]) 3.74 RED BLOOD COUNT eCW1 ([facility]) 15.0 RED CELL DISTRIBUTION WIDTH eC W1 ([facility]) 324 PLATELET COUNT, AUTOMATED eCW1 ([facility]) 25.7 MEAN CORPUSCULAR HEMOGLOBIN eC W1 ([facility]) 30.0 MEAN CORPUSCULAR HGB CONC eCW1 ([facility]) ID Date Data Source [id number] 08/31/2019 01:45:00 PM EDT [facility] Name Value Range Interpretation Code Description Data Mayi rce(s) Supporting Document(s) Follow Up [facility] CYLVXh3uYmZEEmHfHETlPamVRFuxBGswWNUbU2V3MHacGu1ROIbsjhVpYMSsSe1+TGOeFY5uwh2jPLEd gMy [file] M45V/Nuno+fkmq+QbHUEqB9z0EK2wZePH1dvOr6AJ57WIqvOinVWuXgIeBwqqOlcKCceXxKLyUTwpjChzg mTQV8NbWeu0hxO352PFH+WkSnEd/INDkzTP06i+QKV 9dz2C1GNrR5ITMCf6dd2+YDVlHluj+c+UcjHZegl2567hgi8sZUYLyrbO4eahXzkfH3+wXeOSods4ALi cv5TJwf6h1kozjhVGdjHal3ru4BvxNcesaASb5UZaY5LO1BsJZf8SX+sYwr5meA5cM6ovVHEeEmvKVf1 75a9VIy39a93WMUhlCvon4uobYB9HJPfDsbBqvRseT C8RzVfsjtT95n1lJWxHnLhDdnLMMg/0qN1LGekKZCI9HfG9WiVCnNj+SbgUL90tfOiacxEbdalXfLU7T Xzm2eI7gIWy92h/klYy91PPYHIXjUqz1ULPVAmW9GFbkKaNAgsGybz62dg8nfY/Kf8vF5olV5lCMGBty tJ3u/PfvQlUIsB/W643t3aQNTsV+qb5CPrKbFM448j mBhT4+Yz1o09xUXS89iY+VdZpdNT2Qrj28+9gaSkBx4W6/OYyyhZsGQgb/1bIGtNX/T9DJJ/RbXwDat9 p+W7GlYsIXbQO9BwuDl6J36rqPxG9INvwvvsh06PrwSdrj4B6lTIkDqupsd6Jxdz8XZtEp1l2FuBgfIf i5Nkonf/j7N6UEh9jhJU++VktCog5XCWHnaQa2JQZi LAVVZ4AGmr5Wagd57//Dick//OMeHfDOeWyApVO63y3JnDTS0whRi+6tiRw2LwjygULOf07Ks/wbvCnn2 XKeuqpb78AyUoJZwH2OilhD/dwY4HyWp/7tqThLPd3mPXLST/jlJD+TmIIVr0mwL0MgebfIBHWUomF93 yfE3HH74ys3ei5Y+enXSoqH3btd7PVv2MnDbS+Marlyn KqBAgOfzBRy7zXF/J6qjcMpRjNq9BKS1I0MK5gS3nKgwJh7632pD8gbtGy3+oNXSyO4MBM0ufhNIO/Y2 C69LmpUiOr93Kf+HtGVmxrQmlCxFelLedKw5nl/mQEwIYq87+NsFQmcs8n/T8lPUTcOKks/HPSWfV/he /2UjltHOTBssG1BXEQrPOZJEh70hC0/9Myvsn2tmyl /3/0zcPA5Yld5SsynAdpVtYfK8L3+lKas1A6lYgTLpz1iWnrdv57wz7zSS4lkP3M2bi0EJVsiwIHeu2 f9aokLq6D52bfiS7Ptyg4WXVlAVU1e1OWi3FtsOA6eWm8PMq8WFul9XN5Ff5+pvV+2ZeCI8rNCzwW4Rk b2++nExVdPagZY+ryTawg6ShjHHs3SqQevAqhT16gS JsmyYnS+P8QykyUPTnBRk8H7sy2Fmt2LkzKss30BqdO5DPDTBxLpN/gVg795ga1J1YhmeLEe1I3OQi1E FJTSqgSBkT4feqsP0ihOrR2pI26B62oh/laW1tQi+SVoAWKPkjH77/JY7/9U9cJhaaoGZhyd2iqDBT60 NbV9J2GYCEhZ5djwyj15FFI6ipBXIrF02ewJM6yaWp 1aZdlRS/JpsGXlVXliYcnibyOFyx0/CPW4OaxIINBBz3ASbRvOlSXq+LL401XF12OJH+T6YrQOOYKSYe halDlYCtKeZhW/BlDkPpjmJv0rff/7YUqmUxzo153OPLwPGR5IbjhgLC5G3swGSFU42ta9DEeMjp95QF mVHhWu7rQjmkFxh2Jmll2bxr9uKHDynKXgnmzBGNx6 CIvTF0ePzKOFu3MQ4hL2Sh1rIGAKRXWTX330pLXEkfQ4+VFK4pK6kqc9ErHm0wHj92S+K7Y6E9TJNVsd 0jIzedM8PeXWVr/cXEk++LMk93f7OJ8XKvamYVmb5or9iov2ori1kEw5Z5xHMwqPLuQndAzLZ3xH5/Tz BU+ihnBprmpbV5s6/geAuFs+l1hYcu1nFSv4+v5vVg rxUUCcLD0YHq884CD5ajRmAkO/jJ0MVmCnhAPSETXwexHqZHX29B72zCChqeCwonBCP3IB0ohBuI24gH 0veGvAzsDFgObjF9hgwSWtlbusKSWxK/xa+1dsItYXoH3nTfNf35LeuIGt3XZjkuiwN1tP/fWWm7uL94 C46IbCh6sr/nc50XQIZ2cpSKY5e+BOOKMOBILE DRIVER/feHAM3Mrqwq 51v+zPVbX4t2MLYNjfRZ6Sbs36ybHw3WQzYfgStnvus0Gz1u/kF/khkKl/9ogiiI4LGcEqAcr+40cwl3 Xbv3uDLtRkj51+pALf0CsCZveyDwV22L15cB90Di/Uc2B6T0VcHzwDj8bj48WUIx7P1LRp095ZPNp7Tr snwVFW9l26QtovL4t5YLKwMyviuzaw+qYX4v0JtioJ b6F7jURwp9m5DNRy1nqBuPrJQZbO5NNuIJW5yxUi2w0kMyWLth9gQc6/6M0ltanhH6qEQQyv9gTdNXz8 flmAr7BGshN+X77dByxhf9oHIfjdyI6C2wHGSjPPTuy/gMUYB4KXxZ9Bph69ErsVTOOAZi8Vp6NP/MEDHAT [file] kKPh3IEVD0qY/RAkr64Y9FIHfkRnIsbW7mM5FWScfbVF5GqdHDw1cP8dGXlw4ExlwBQ+jtpA64k/Furnace Setter+h [file] 8N8MmjN2oSUH0UI7f3qwlBV3t4uBflvc4PkPzPZ7sKdZ+prUpwpHiv7xE/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/BpxegrD6eyj1JD0ur6O [file] tIKijg9iwjt+tF6Uteuh6L/wIinmwiky04bTZnPzPRdG95/0c2n+2ogNYrCshwSyzo5p7rQfha9qi/Rodríguez ++qo+Na2osD1QUkLsWkust1AIbiIkbKKdNz1ioSnlWJ+JYDWBwBh8bmDKErLqN2TqoJwgEfxDxmFSnE6 tvWD0F4Mryf5Y4V2jtIrCUCaNRnRo3EF13PunmyFom eKBkVTG4hgkAAy0Z0YS01pnUbLYpp2YPW38obIazGEvdgi8V91vpwRlXuvAARoCrncaQB+6C2SHLwdjl ADOTHrNbuHB9DRUvAf5E8dd00eQI7MeSCMmuuTNcoSr28e12BcURv5+EfEnoynx44AEIbs62UZRvlC6S mrpBnXazOMmhVr3/SkeIPifGkCSHdGzAU4Pgj9uAa+ AfKvUvUbd9uErObJWtJaCgLc13kq4u348oiWA9BVY22QrXNTEe1Xlt+zdTzb7nIC8vDJeqBCIRWuoCa7 PZPIUO0dDLj+A4GFFBMl4+5kowiFA6dy4y6eMb+aPdEFgXVTNU74K54H44sPIBQ5ey3qHnOdUbOFRg8I IDF1Q492+mGupS60JGUm/FMn/jai0uII9yNJA/5qeI ZJTel9o3mBYwH8VG/QmnTmWa8SnEzQKO8EhIpdsE56s9MwnKHGqdtLt8VwPPpa9be2NxIJL+lug9oyZv pKMu9t0JUKD+9TUIjksjJeudzFjtzL+P2HvYwMfZeekBO5SrbXXKx8ueYtpEK6jPkw8gFEc/sYtx6RDy wGPDszlsg2HGfLWYNvmZoEyxBRvlNUPkEUwwDYUID1 Tasha/I3JfGfEcKDvT1koeneaK5/b9KzrhEcukuyWzXSW/GNOr9anlVtB8T3pkBj7Tv7/6aLPYpvXtwip6k [file] woE5SKZ2+Q5+svO8gOsWjOkqs+PMaVbuOGPfmFfHv1S8vyQFOLp4NTz0SYcIh6IU5UIKTcrqxpEb+endoscopy support specialist [file] CC1S1mEnGdiqpekJUQKoseMM5rz8UyMjARKysY7wstwPdHhqvVeRF+Elissa/NnbPhjA7D6qGSwf+05K/xO zfBZT5c5Xknbt8ENuNzUy+Y9utyd+bOSlfJpfk5epI C0JTzUQDrzCDVevDOVVSQflCDXAImnpadqq6Dn3mJ28TeSwy14iv9IhhS6AL6S7WxA3D1IiHmBFeO7gg hHoJ0VG0avRDZwWcPqfZ3+35aeoAk8x27RqXervux/Ih5GyPWjX8hiGlYV7gWtLKHxuoAt0HQxIqrzAx 6tiMO+jingle writer/c406eTTmaiayh+RHBrEQGnHSs7xh4G3Nd [file] /auQI9H6EMnWz6R8XruBaVL29ix/q2+b4dR0auVG BRzQMMgz2foSiuokvZXyHd+WoF5OGw1s7nF2n/BWZ3yLLgz0AzcueM2EfFrizZWdZblWuDG4an4fz09k P4zJAVtkk84KtOz6zbUTsgBlS7bbSsr4gRdJI6m4QKrps6j0ncmPDrkNdfC0ix8/HplnNT2BjwGGpxz5 p3ho2vQrDYxXTX+MgeouftbvtfqVHh9ZcNkPliIYgO B+MNSHcEfB94VV3cPhAvnIuYTbV30XfGxKfZjclorMwmvFLv/EgFDpsNn9gpscOfpPyPzXo9w1GX9f1c kHowqp8pkq7t6Qjq8vEztm731tQxb7wB7QhC4mZJTSFU/L1UyuWD+R1Ce0O8w4BJ1e9DQ1QAlPKGGrwB isR/+F2lhSHfZsYgXv7QYjMGAe1dirlRaUp27Y8SK0 o4TnhELIpjX4O6dEa02DpRmlMEnBn9TPcPwmRTyHT/e7y6ojscIhEoMYo7N5VK9JIRKb4JF0m1/1Ezjj 2DyLo7YcKd1Oi8xBrgxo6/A3DfgePegWpXlT2zJombT5PHjHZyKC+zZN3YU3ibUCGo1oI4TQnm1oX7fu 8IqEf3GZWiTglArkm4+Furnace Setter+pfEa6o/To6a5ckQ1Orbe [file] rodríguez/v+JTQxiLKSYZKO0KOPv/7W1k07y3L+PRzLfRSw3 [file] PmznnW4MNJUUI9PRBws3Wj2TgZmAqEMcgItjOc/Performance Test Engineer [file] rDrTbENF//K7n/3W6GwVgymjNil0W7EubhgsZmQDnaNjWJVdG8wNSOzwI4/Татьяна+TWiwvqf44t+qaB/pq [file] zSV7n2xxWBbe/Furnace Setter+4oz0cfo9x9pbel9Ow9w0GfJRwLK3JrU9YFv8epgtbA+du8L/u2T/rmjc5UwRphKq [file] Up2UB6UCoRhHTZazBFR3tnxkPeWWDeZFn3DH/synchronous motor assembler+TX/rA9FRBcJxqh56HER4wbXmRhX6IQ7koZshI+EV [file] jingle writer+YStvCiySKgm8XlS9nERKlRkOrvNINsQeEg9LhQo [file] /I0HI1R1ySrX7bvKPPwPR8733ovj5Ugmk8e+bQ+commercial solar sales consultant [file] CRR0u1aeZyvLGAXzehCR1lZDtNrVoDueSHT8/Rodríguez+ZM70SqkKJvegml7/fLTxbQZyI/+DJAYxf3JS37nd [file] GAkxzS3koRCwvPXRRqGAhIli1+jingle writer+B2lZ1OKQ991Le [file] jEbRw/cAiomEgVEB8zRVKmvQn58rOuoKjMxHWZH9i+Rodríguez/UEz0ipjAiKq6YEtGqpE+rS4xEJORlQN2t6E [file] 7aHvdTlyJTZWhsZEwOUtZcY2JgRft4V1WYXwo6oCMYk2PVs6MJRdACyxFAF5V1DCq5Pg5OyXn/татьяна+0r [file] EXyc74f4/Clamp Operator+Lw6erCpOtN35QLku51NAaQRE38295 [file] b/RODRÍGUEZ/NHkflVvGnp0TrF99thndvFAYEVgIU8pchW1xj [file] axNSZtM0Al0E1KkA+Dfb4mgj30h4aaYK5j2Ah8J26lUwltY/QnakB7HRJmFDNzZUR4ALeqVIiIrvM+Rodríguez [file] kQMkY+z264/3nKCxEecxWsiQ9UikTCqlk0q7YKfH0/pUbsIz5Td5x7hXqe9vKu6q0R94ncCcJUy//hide cooking operator [file] [facility]+5fmTPBLVaMxMnD/4Dv3Ssq0bxup08D+AhoLXswOsdD/eh9DYMRs/6hUs05rIlefO7uusBvwhfWC [file] u+RVh5zkhcLPWzPg2x4Bu3ioR77vNYApYdNyjo6BimBmALVI7ko5vnS2qtVGkqV9W8KFcUB3GkBod+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 Ju/CQFu1BaxwmWTVZYn8rfcYjNKl0n+6HSWkvjU258Kb3XEzcOIfeXh0BKFC8M7wXIe99PJBrwtrcW+S 6fwd8k+eUkMIVNjD42606Dw3NZLi4+gJ/1vqKO/2Zi 4o4aOwPmdl7NToX/4M0TVJ6nr6j6P7gtAyH7QBWHxpheo/x3EALr87yM5Enlr7bLS4RxI3hromgLDYut y8jhLiK2/EeLAS1f7i1QQ8960OIH2BbTPKmweSItn1taMl+RCdukrBPRNaMzR5Uw/C6bPUlgt6i68v3t /qL5JF8xfqIOGmGJI5dsi3MLo0YBRvxHlP4lAZrYew /arlin/QgXrvf6tNrLr2qyyqJpl2AijYKtKD3j9tCQhTDvAICox7SYFa+uMAqhU7Q1+Iv40K64ushq5YwDh [file] +jtx9eRfKXaChdffbuNGZ2iSsvv81ooOjemyDI5pZCbVhElKsrazUjhl55OCpsNgK3vrKSil5/It6+Rope Silica Machine Operator [file] cI8Oxu1OJ424m13MGD3rxUw5F612cHQxdwFTf+z143 0c+Bki7xmq8YJhDE8ANORGQXNQ6QoPQRwKqSzV2ZpN13l+UDK4BgW9KcaC7b8kbh1fE0g7TrYCcxDdQ0 NUla5BqxdQdZMa1M3PqJ95CsmzzPO8FXAOlfFrWsU8Cvk813spGxqYqkVdjZBYDPkwT3f7ajpX2ndl/9 x7rSUvj6rXyS6e4gTXJDRrXyhsG93w9kMJmLV5AhhL +2eCAuV0bIyCtPCKLmz8BIUeyLts1TpJrmN24lf0/DbZ11xid8/eTDZrWPt3PD0GWg8U39m04B9PCtPy zf6tKm1ARhBBBEYxg21mcpH4Vr7xVUwvS2b/O5ut2gDzx2hQUdfOh4E9/5vW91pciwYz7ndoToFH0Ni/ NSdsgmfbPWvYy14saBQvB9pxZ5WbtMQtjlqyOZtQaQ N8hm8PdE7X1tPEq1dDJkMj/lWrNpC/vJftmyDQLbQvZY2zwvyWULpCUpRhvEQdHPUf6qp/CtRbyv3AKr Gw7bfOLPBvlPr/i3yk6zzQ9YwdAKhy9D1WCQS2VF+gC1+uc0O6I3ED3MnvpJ40CWalNszG4Z1Z/PQ6ow NJLz/r5K/0E0iYK/d9sOXaGH+s2ho90MlNpKODr7zq wNhN00+QEeVG758Y28/sCwpLzgFkq14muExhNfGkWxNDDM49/HgeGx2f0R5dACBLqX0E5U1JbMnTpuTp wOk9ArZSjuU55z07F9/UF2QX9DArF3d4gypyvFt3WgLxn4keyysy1L4RIbpYasAOweNnI2k/kWsGjoM2 briana/twL5gi+hvkdwh9ahnWQXP02VFjSGLGtx4x6T9G D4LGkiudOfK/gp7HxtMtqaruxsFTCOFsXs9h6Tm5ES2EDDO3waoTBNe+C9uRVhwqAX7qvEAV1X4dN4Hq RNqsvQcqangXz5WGtPdXhe1T2vV4TE2qFJFP35NB/rquZwS7f3whX9b0/aqJf5hDmzgWBiU6BtQFjPpF C8Fhsss1KUumluXXjH+MKibLRUxnO770+iFdB1j [file] [facility]+ZXt3dqnKyBZgV47kIeWqDFffRBoAjaS8HdW [file] bwwzDh2NGy6zHIjUhZgRHme1eO8WJNXiCLcPrrgpUFPozmw7GZgL7fTtK7vbJJRepK5Qzcm3qWmU++rodríguez [file] [facility]/Ay/3GBgojp28MJjQ0553iurVv8KweeoLtPCOxzgrZ7i5Bww27RYIWh8ubxetcGTzV0BQOgX3byv [file] /jjdJfGxfIoqgnwKAHKluYn0+CYobEL2DwvppfxkFueWPDtFgweWKxIzbf535381ryhZIpCYxrWjuc WNSWQcgOCIyGm4k5rfNmV5zOJ37/C4ZXg+qAMO0Nqe iFktrVbZ35/2D/6RyT1X6Q0meBkg3KRrrFh4mB9obtgQTYsnZmc4skq7yXaB0A76e704XcT++HuHnT7H UXc7bkVhLFOOc6IE1izbu6HDj8ChPnJ8HOk5aPvdt5vubAN9klheGrOyZt+fsRf3rThebbqk1ETgZ3y8 8rNU9uglQjykxOQTkDbBIe3Rvw22BhJbdhMn5y2HET R9uU/IIXxghzlq5I+Jvc1QWArFzGSXmmHn4BGgIpuyocpKvMYMdxnu6Wtqa70DxE7aAtqEPrU/SCKSYo pLyKqV41hzgXjAMPAzPtAUMCMcWmKCYQjICuo5RZnAaFkYuaSTFrHo31szbzD3xVC94VvBYFXaY4bXt+ tz1URUDB+vl9JB2aWGgEv/aAHy1ZpZ8sGydnvzcUJv d/vOgwW+M27KNT6WoXk/sCNqWxxxTyHQgPv1DSS9ncGLzpf0+8A7lVJ89hCLkRJ0I49iR3h6qMWkC734 80lLipbIaRIkiIQzo3NOSMSC1uZBA4FdKOZxPWYQlDtV35A1ghmWqn57p34Qrc1tLAKd8TkNBeowXw09 tpeUqfnNTTOVyPcza9j7lU6/ehFqAm4gC/mLJ9Et30 gRWJsB05iKK4zIABghwC2opjHdqxu6qItV01hwGZKL9Z2o3uWgk7P1q4FTpz6VCUn4BidyGNGwOv3gsD fs1yiM2AuHMWzoF5hfpibXkFgnN5mVtR3qeK0Xd0gG0FOkxQGIdvTFzhFZj8c0xOlMc6f4n0vLbQV495 ezJJKd78SUaSaok+753KxRMH8uk9foq1DEzdQuXIc2 zltz+synchronous motor assembler/H+Xa8UcjroPZ8BGkRcNoABG1cC2nSj9dG0ilYt1VwwuPkfehDX6T499o18g2i3yXDlikyedi [file] oM2Y4kqmrDJjNKLszy1ZLUqHE5FGuSfZpnrXPjYOCdQ/q5wmia6jGYY6FNfhyUuxUY+calcine furnace tender//axMAnP/z [file] d/kdZhJt4pDZ3SKUQs0BAZ7IQImxiaTAKefas [file] J0hxFdQMprAKA2GVasWErdNLBYVi== ID Date Data Source HEPATITIS C ANTIBODY INDEX 07/12/2019 12:00:00 AM EDT eCW1 ( [facility]) Name Value Range Interpretation Code Description Data Mayi rce(s) Supporting Document(s) 0.1 <0.8 HEPATITIS C VIRUS TOMI INDEX eC W1 ([facility]) ID Date Data Source RUBELLA IMMUNE STATUS IgG 07/12/2019 12:00:00 AM EDT eCW1 ([facility]) Name Value Range Interpretation Code Description Data Mayi rce(s) Supporting Document(s) IMMUNE IMMUNE RUBELLA IgG QUALITATIVE eCW1 ( [facility]) ID Date Data Source SYPHILIS ANTIBODY (RPR SCREEN) 07/12/2019 12:00:00 AM EDT eC W1 ([facility]) Name Value Range Interpretation Code Description Data Mayi rce(s) Supporting Document(s) NONREACTIVE NONREACTIVE SYPHILIS eCW1 ([facility]) ID Date Data Source HEPATITIS B SURFACE ANTIGEN 07/12/2019 12:00:00 AM EDT eCW1 ([facility]) Name Value Range Interpretation Code Description Data Mayi rce(s) Supporting Document(s) NEGATIVE NEGATIVE HEPATITIS B SURFACE ANTIG EN eCW1 ([facility]) ID Date Data Source CHLAMYDIA & GC DNA AMPLIFICAT 07/12/2019 12:00:00 AM EDT eCW 1 ([facility]) Name Value Range Interpretation Code Description Data Mayi rce(s) Supporting Document(s) Chlamydia trachomatis rRNA [Presence] in Unspecified specimen by Probe and target amplification method NEGATIVE NEGATIVE CHLAMYDIA DNA AMPLIFICATION eCW1 ([facility]) ID Date Data Source Type and Screen Prenatal1 07/12/2019 12:00:00 AM EDT eCW1 ([facility]) Name Value Range Interpretation Code Description Data Mayi rce(s) Supporting Document(s) NEGATIVE AB SCREEN PNP1 GEL (VIS) eCW1 ([facility]) ID Date Data Source [id number] 03/30/2019 01:45:00 PM EST [facility] Name Value Range Interpretation Code Description Data Mayi rce(s) Supporting Document(s) Follow Up [facility] TVZWDy4eJsYHFlVqBYYdJlrFUXxbPVsbCRAaZ4Z0IPhuSq7VTMoiryXxQMCiTs2+VOYbXM8htm3aQJMh gMy 1dWMLhQggpA3WqZLTzj86PKIWnKImYIaBtZgYyIIPoRERdZnF4FBL0EkDbTvhlDO2sXVC4MQTvPMnkFZ LnTFMsKYZ3SkvxOR7pNLyiARewEp6BMG1dg6KtERVqINSmHuyQPCfdCDotNNMpIVOmUFKtV104rrIoMS 4EeIGtRIj7WBEhSnD3DKEkZuQ1XDTyTjTcBzAfSXSj P1Dim083vvWcklO5OF3GD4MkTRW0QHv9B6lhYvIgEWIoRZSjFZ5hGnS3VZTrOn4ZeCgvZPOxYDKrQi9J eHi0TTX5QVIfIv9+Pj4+Nw8tatMeYtzBKTKeAC0rig70WL0XuONdLL8KSAtjP49rNKquJo25HXfmRIBi NpAlKKd5He1bDvMrz4JsV9OmPXb4W9uMDlcwJ1EgSA emDX7wLCM1ODLgLj1+Ru5lTGMoIO06HFIqMWSYE4ErhoCxglDbHBr4KEEcWa9+Vn8qakRsTpmIVPPqJC 2fji52DT0MXV2gpHvrLhf0BeGeA25emGUpU1daCkXfF3NtlLzdBQOsOO5gG9HxAXanPNEcFG2mpnFztP 2TjEo9BYHgJd1NrJV5KSEfU90vGXOvWZWOREVaa7Gy IV9Op2qddmRnOQMnJK0HVIEyN5APR2CsF8mlkVgpHOBhGH6JVPtzhVOjCGu4QV0HeRRtWRRuB37ksS9z NK22GNh+FnZ2lzHobR0IoXsds7DNAM320k1Y4+ZuJd9JuZnAZREIXGneXNGG3O3UuXfVCMIFa1Muu7jf 7gwafAYd/OS/7336zH1cbva7ck1dlbj28j6V76md35 [file] CXAxdn3/6qQ2CWqJKUB7vyPld0wHOLGTlNkIB2rCEpBj2L/4NpRAT/g5pLnJ8DWfO/jZ/+D6BlYQ+Motorcoach Operator MaQg6o4TAMlkGj5oAYhE/bHdbXDvwj4xcmuI0FxzIL+Brown+in26vjTvZcawE2gBXi3DIiXtLrjXaK48T7 [file] Owf+Víctor/cctmRXMDuwqwWB2shSI8Jl8/T5UtvB1I1i [file] S+IdxcqCDJNILUneYkSQFtQxYzrn5J1jwuMPrRtrk+UChqL1A+railroad crossing protection maintainer/3V3FidDdOS+TMdKiT17t6GP7Xe [file] 0kl03X043doqmmw0n5dKIKd7Zp7iGz+H3uRcR38dBpb2BBiXDrhXF/0/VpOpg4FScVVWm1f8TqBd+Júnior [file] 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/02BjmwG5xXQVLHnDFiFyZGV+W5SrkRjzipMlLd2rjh4PH3qYPrCPqyITs5PNAJr5s4Ef2LA5jV+VW [file] xX/jingle writer/+BORJQYvkl9aWmfXveXkzu0jrDOuiJO2/iepOCs2uF2loyU8xLfj9HgTG/WFkvAKdfr0u7hXEc [file] b8hWAPpb1xgFKAInc98b48hd212gltbbpoANjh9/IGbC+IxaAUtWhCwgPeH/letterset press set up operator/7P+JF8JpGMCn5hXz [file] ryfyGSW4C387ezpulzmwjQgnldFMfXs0sbtwmr7Q1W +5IQgLpNUxkpILmnMQdNfkHQuwhygt3ilkXyiXWNc5Ca+3QVQE09LSFyM2hp6kEpbkkkKQsDiC9n78KC LfBvAk5C8qOGv31+ZJuqEgOm5WH9LXiz269OG4ooUW1qf7EECDVTJ2xt068xeTWl2MRAXRvo9GAjR642 68uh0Hhztbo0X42m7AEMwkEn0cTxWgA90QwZFlXy18 tsVLjQ6drKJP/GalapAZ+FWKxzxBpjuNThL3twcy9VNyhIkVSjAnbfQuncqL0Z/Tg4OdTpib8UFrz//J AdN59YC2QhSuumtp7ok122P75SQgWlFkLWRYYSAANAjJWqP0ljaN+5Uxv/+wgvrk0se5f8wJVEvMtZ/t G0IcJCJmRgq1R01VjxIrFOtGCn4nJasBjvMsQ+DkaE t1IFdWy3V+wgBZLZop9Gz7RvWlXzxY/+co9UqfVF0pVXQ4Gz65N0SM6pdyh3OTwosiLGTIv4E5gJ8ZQc C3U76lspiX2blnpxyEQRzQ/fmNR1oZyUYiewINboJLUvh11p8FOQFbKiNlbI7sYqKOFHGf2ohnEVz7hB UYqAgLwg0JCn/aRB7Tx2OrRx+72OT1lXn3hLczx4LL C083J6ulP++LjvGj1UDLS+XRE9UELzaHH4ihZE84oySIIeKqQANwgZAT/TERw0J49E5OPN4t8BfGXImX 0FmMUYd946KsbSEe0+tSN31HfNy3FiESbSx9Uj/CZFquWK9NcQL233dCWk5l9iwPyoB/iof9pGOp/Maria C [file] enJ4+y0+AKKN0fSViE3HMUoAvUcjUQpdFIs/vp emerging media/9dv [file] 5VsbAxqEaTVYMlHLSoeggHr8QkGws/+qw3OvA+AodQ7olhThQ8nC7xtz1AjIA5+maria c/uFW6GKK9PP/DT [file] oIqz8kcoxqC+cuIUhE2vKcug6c/Rope Silica Machine Operator/37ax6pGNJjWf [file] F/rifmqlpgEOserkL32BBPhTVlpfeed0MmQoc9WvH4 GX2bJ+HMm8rmCb5yiD1aXpcsfeBVQgfbKhFV372G1XyMH+pYxwBKH180o2awQmrznwyd0iFwoB8OZKjT M4lrW0yKn2UEgM0LtvdQH8RkT197M3f1dRS9md6Ov6mcQ1iValv8nqekHWOFJynbUX3asYGbpOQjO1B+ ZwguAMPmHzIkpGwaJH+KPsR3l9M4jFC7/IZrnreqt/ esxmKNZSD3U6XopiO8f+JUrCiY9aP78H5aRxEeVkHHTRz+wpMO/Fcb0T8ElAfW89Zmkzft7ckNcg/zte o6ga1dbjJe554hQlo+0pc6ESJDmCQoC0oSrBAy+nay4DwAVOBMCeqXGzRq82PCGpBUIoVsovrLANCmtV /lBOIS5DtNLV0/JntYG0hTSYywWiNBk459JmlNIp3c LTfhD+u2r57hwNAXv+32FgISPUQwpSSvxIxEekJVji/d/tlx3BEjJKzlzyP4uL5NZg9RwxxeyBtg9shU jo2pnzo6/Hyx1zY/Gs1pVkYes/Nc+cG32xRBSl7rftpzxt08wpononPKT5o/LoQjeNU31pZgIsCVibjv 7S72N0THAieiyZKK7PbxynSRRqgG+y0BG0NvIR4tuz sJJ9xcOZMPiPkW1Nik7cBfhgbEoSklyZrXqPzw5SCQeVzzW3HDAAA0Or610IuCiGR/73x4egCAAOIMvd 2ngATAWllt0FiXmtPlPy89iLoIQWFGN6E9Ptz9D7NWe0mY3PDAGHf+DAxvU9GLza0QdCVpanpPsu5fEh JXsq4VpmY1WskAQzJX50dazYGng1fcQhwmgFhVzros DRJD02R80R+ChkYbplPlxax4j/entry level programmer/Xl1AAMElxxR9m2BjAoscv8XIow6oN33Tw0rsIySHo5yq39Qe69 [file] LqGK4WRJlCJry7GqzU9zSMqgeYS7xX1rUlZf+N+Júnior [file] kYzgxYxs4mANTxHDCnD18M7zjEXZ5czz8tNKO5P2SecVR9Y78/wgdIhWxSvQRNaiyYLeewdGJ3iW+De Ionizer Operator [file] gsx0hltJmIgJxq+kovyokyZ52UdOd+CmlhEZT5+COLLECTION ANALYST [file] Jose A+Ju9MdLQv9j2pino9DyZcwurimtKoCpXTa3/NJo [file] Sarah+5qq0poSLdyFizalczDc/FeIsTCEVajE0MtycwPZUGaYWqJewRjYUoLCrHqgCSCEFwfz/rey4GlmJ BiiALMnRIPsMFrzbeXD6/DMhuA6ElNYGCM1tryvL0rw8KANPWjI9c46CeWGXDZdA6cHS2zEaWWuiUNke ZK88o6sDKDCQ0dT2MLgwJ67nSEocx/R6mt/r/HHtRV 1XdhnAd58Oad3FHIfIGnXkDS/XeJDtvY5XJrEBCIZTDnDCrw0UzmsUfMPITYLbFvqxR7bmPEpx+Qzv7q x7eudYvOBYQicGqkE9Xr7WoHlB0R9juBwJ8WipqbEEAf1q9gpMPP4GS+IFz8U6h/nYj5oQI20l8gIr4J 3YS04Xio8Hz1tj8/6u3gZAyywNxjBNg4OYbrAls0Rg G8feQcVYT3ya7e8BsPRPzajChXtMEzihyRkN8LbqB+yuuYtTrmNtyl6/nhGdSzSXXAJ7TmoYMT3Rflt7 Nt5D32V0y0tv89Z759pjnGkHTOLognW7XlUvXhOWjYcWzfpVG5ht6XB5yd3S2dTQaN65olW98hHv5Gtm VwqDeWt39ZluSaN6h2gZqZLnxYSLU/M+s3ghInDlhd RR9ov8yNEE9im3omeOUgD7bGSXCuyDE/aqr2pRzVw6s2uoharF1Y6xB9DEeGB1I8qzHIEgkmDtJ5fvPc hwi+2oUYKmQlPXonhKHcr8kUa0CS+mQc0O1HI8+T0AYCQJY9+gbZ3lcXj5oFolu1hCtoFR8s0P9cP8he vV19pe92Uk/rSo5IWOa+nRyVaqFLDlJTiJxXgLV/rodríguez [file] iHoZWphM/oscillograph technician/95GPrIUd9FevJWgOzKz6eJEwqEA6Fy5GcOP9SNkhw9fSm79nqIDaRYLGXNVI6d9Muli [file] HywNpTZ/LDdVI+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+89I1O9l/TlXd7o3f9M5SLvbIu [file] OASZSC740l5AJXK1rtGLSZ+B2WGdW/eQZDLB993wJM kPLUBoMHe9WmDFLYy+va2z2R9d3BF+Gq6Pv6GqRa/07UnzhWbiyf1FUp3/HVhdGFD5UTXvfSEETr5EyX BS3O9Aid62+3G7qi0zu7xR9bI8bxDy1YqWoBqEKiY2FozAPdc+tqe8jwm9btUr2ZZSismOFfU0QCSxFx 5NdYkwEqiHlasFykMT5P+bfBt7Vr2QZUgK2u4zkNkK 9lmgVsdog6K9hEIbjWsov3Qh0kQKWdZ7g3EzhejPY+RL80+EgXiBH4+EBnS4J4Hes5/gJQla8GUCwXYG q94PyBuAIZ2F9GEn68m4WG5yZ+56eRyOywKD0/+PNDnxSTQ9Kb+oKEMexSXsXzkghd7lCuqpOHDiFGql UYTHonuA15ashxjsPdTpBy8HGL5YGQxxkNbWtS3qYG WGJvcC8+fppq5MFOm7l3I2qaMn0SBBCt62OOu443NhlTzxhMEi+aewr8GOW/L6S/t+NJiOc+A3dtk48k lPoz2K7NVJlFkT/Qinx9cIAIuNOiLBsdbOBw+frrGhvmZTkUH45Bhdo6avcTnY7VYWRgqqBQ1G7ECWco 5CpmKuCPm6I3EdkL84wQJjkcy07Jp7y06daq1W3gRu XGGLh2d4geSsE78t/u++ats+66IQS8mQFsnOtoly0DfxI8/mwVnnOtnsyCbC1zSRLOKoqXuPIe8yZqi5 XQCUT2ij6dXvvFKvhpkS8CyqDkUleja8GHBQI6KnvK3CPTd2N7Pr8Ut8mkXrXUoxe+m1d9s+LY+nqgbJ BjO3GCLcVbitAGGJy90boQcLIAV/mXjn+ZX8kTk21A jw2iTyBtpm0FnXUGV39uANekht8+/ZcixiEySFajhWmkqwbO3J8BSTEm55BPDBYfH+ogVVAVzds5+patient registration rep [file] sZjVRVPQJY4cEOx3VwBiBzkw5dejZzRIv5jjoN/INCREMENT MANAGER [file] rodríguez+zXo2rxAnQFTlOJWoSX6Gbl5/QB8yiPC0b5r11Cc [file] KZuJXjPHkPV5xJBRiQAhdkhcpbceB/KtDSns1Ux [file] MOp/Wi764Kj29ztz6vg2NdNlIC0+RXKUhhr1IIeFUVgL7YLoFnioFiqiFSjvcuw14IPLwsIg8FBfh+Rodríguez [file] manager logistic+ylwukd34vp7JTSrM5/rOnX1EeQC4m++DaMzWMNwtGPYNX4i6/briXCK2Zi/tk/89FnKPJFfjfCCl [file] ZmoJ6BRC7gn7YrXJ5Fz6HypwV2fvLbYGkhGiD0CUH6XPfeDZQPOk== Procedure Social History Code Duration Value Status Description Data Source(s ) Smoking 01/29/2020 12:00:00 AM EST Never Smoker completed Never S moker eCW1 ([facility]) Smoking 01/29/2020 12:00:00 AM EST Never Smoker completed Never S moker eCW1 ([facility]) Smoking 10/11/2019 12:00:00 AM EDT Never Smoker completed Never S moker eCW1 ([facility]) Smoking 10/11/2019 12:00:00 AM EDT Never Smoker completed Never S moker eCW1 ([facility]) Smoking 08/11/2019 12:00:00 AM EDT Never Smoker completed Never S moker eCW1 ([facility]) Smoking 08/11/2019 12:00:00 AM EDT Never Smoker completed Never S moker eCW1 ([facility]) Smoking 08/11/2019 12:00:00 AM EDT Never Smoker completed Never S moker eCW1 ([facility]) Smoking 08/11/2019 12:00:00 AM EDT Never Smoker completed Never S moker eCW1 ([facility]) Vital Signs ID Date Data Source UNK Name Value Range Interpretation Code Description Data Source(s) Body mass index (BMI) [Ratio] 18.3 kg/m2 18.3 k g/m2 [facility] ([facility] [employer] [facility]) Body height 62 [in_i] 62 [in_i] [facility] ([facility]) 5'2" Body weight 100.00 [lb_av] 100.00 [lb_av] MEDEN T ([facility] [facility]) Body temperature 97.8 [degF] 97.8 [degF] [facility] ([facility]) Oxygen saturation in Arterial blood by Pulse oximetry 98 % 98 % [facility] ([facility]) Respiratory rate 10 /min 10 /min [facility] ( [facility]) Heart rate 108 /min 108 /min [facility] ([facility] [employer] [facility]) Diastolic blood pressure 68 mm[Hg] 68 mm[Hg] MEDENT ([facility]) Systolic blood pressure 102 mm[Hg] 102 mm[Hg] M EDENT ([facility] [employer] [facility]) Diastolic blood pressure 68 mm[Hg] 68 mm[Hg] eCW1 ([facility]) Systolic blood pressure 100 mm[Hg] 100 mm[Hg] e CW1 ([facility]) Body mass index (BMI) [Ratio] 17.45 kg/m2 17.45 kg/m2 [facility] ([facility]) Body height 62 [in_i] 62 [in_i] W1 ([facility]) Body weight 95.4 [lb_av] 95.4 [lb_av] eCW1 ([facility]) Diastolic blood pressure 60 mm[Hg] 60 mm[Hg] eCW1 ([facility]) Systolic blood pressure 110 mm[Hg] 110 mm[Hg] e CW1 ([facility]) Body mass index (BMI) [Ratio] 19.168 kg/m2 19.1 68 kg/m2 eCW1 ([facility]) Body height 62 [in_i] 62 [in_i] eCW1 ([facility]) Body weight 104.8 [lb_av] 104.8 [lb_av] eCW1 ([facility]) Diastolic blood pressure 54 mm[Hg] 54 mm[Hg] eCW1 ([facility]) Systolic blood pressure 92 mm[Hg] 92 mm[Hg] e CW1 ([facility]) Body mass index (BMI) [Ratio] 19.095 kg/m2 19.0 95 kg/m2 eCW1 ([facility]) Body height 62 [in_i] 62 [in_i] eCW1 ([facility]) Body weight 104.4 [lb_av] 104.4 [lb_av] eCW1 ([facility]) Diastolic blood pressure 62 mm[Hg] 62 mm[Hg] eCW1 ([facility]) Systolic blood pressure 98 mm[Hg] 98 mm[Hg] e CW1 ([facility]) Body mass index (BMI) [Ratio] 18.144 kg/m2 18.1 44 kg/m2 eCW1 ([facility]) Body height 62 [in_i] 62 [in_i] eCW1 ([facility]) Body weight 99.2 [lb_av] 99.2 [lb_av] eCW1 ([facility]) Diastolic blood pressure 56 mm[Hg] 56 mm[Hg] eCW1 ([facility]) Systolic blood pressure 92 mm[Hg] 92 mm[Hg] e CW1 ([facility]) Body mass index (BMI) [Ratio] 18.034 kg/m2 18.0 34 kg/m2 eCW1 ([facility]) Body height 62 [in_us] 62 [in_us] eCW1 ([facility]) Body weight Measured 98.6 [lb_av] 98.6 [lb_av] eCW1 ([facility]) Diastolic blood pressure 60 mm[Hg] 60 mm[Hg] eCW1 ([facility]) Systolic blood pressure 94 mm[Hg] 94 mm[Hg] e CW1 ([facility]) Body mass index (BMI) [Ratio] 17.12 kg/m2 17.12 kg/m2 eCW1 ([facility]) Body height 62 [in_us] 62 [in_us] eCW1 ([facility]) Body weight Measured 93.6 [lb_av] 93.6 [lb_av] eCW1 ([facility]) ID Date Data Source [id number] 11/09/2019 07:13:17 PM [facility] Name Value Range Interpretation Code Description Data Source(s) Body height Measured 62 in 62 in [facility] WEIGHT RECORDED 107.6 lb 107.6 lb [facility] Patient Treatment Plan of Care Planned Activity Planned Date Details Description Data Source (s) Sprintec 28 0.25-35 MG-MCG 01/29/2020 12:00:00 AM EST eCW1 ([facility]) Sprintec 28 0.25-35 MG-MCG 01/29/2020 12:00:00 AM EST eCW1 ([facility])
[2020-05-09] MEDS ORDERED: PEPC1TAB5 PO (20:44)
[2020-05-09] MEDS ORDERED: PRED20TA PO (20:44)
[2020-05-09 21:00] VITALS: BP 97/66
== END 2020-05-09 21:39 | disposition home or self-care (01) ==
LOC: M ED 19:19
DX: R22.0 Localized swelling, mass and lump, head (principal); T78.1XXA Other adverse food reactions, not elsewhere classified, initial encounter; F17.200 Nicotine dependence, unspecified, uncomplicated; Z79.899 Other long term (current) drug therapy; Z91.048 Other nonmedicinal substance allergy status; Z91.010 Allergy to peanuts
CPT/HCPCS: 96374; 96375; 99284; J1200; J2930

== ENCOUNTER 2020-06-20 10:21 | Outpatient (CLI) | payer OTHER ==
[~2020-06-20] VITALS: Ht 160 cm; Wt 44.4 kg
[~2020-06-20 10:21] MED LIST changes: +PEPC1TAB5 PO
[2020-06-20] MEDS ORDERED: NS 1,000 ML IV SCH (10:30)
[2020-06-20] MEDS ORDERED: INFLIXIMAB BIOSIMILAR 200 MG in NS 230 ML IV ONE (10:30)
[2020-06-20] MEDS ORDERED: ACETAMINOPHEN 650MG PO PRIOR TO INFUSION PO ONE (10:30)
[2020-06-20 10:42] VITALS: BP 108/65
[2020-06-20 11:30] VITALS: BP 93/59
[2020-06-20 12:42] VITALS: BP 109/67
== END 2020-06-20 12:45 | disposition home or self-care (01) ==
LOC: M INFU 10:21
PROVIDERS: ATTEND Internal Medicine Gastroenterology
DX: K50.90 Crohn's disease, unspecified, without complications (principal)
CPT/HCPCS: 96365; Q5103

== ENCOUNTER 2020-08-15 10:19 | Outpatient (CLI) | payer OTHER ==
[~2020-08-15] VITALS: Ht 160 cm; Wt 44.4 kg
[2020-08-15] VITALS (7 sets, daily range): BP systolic 117–127; BP diastolic 61–70
[2020-08-15] MEDS ORDERED: NS 1,000 ML IV SCH (10:30)
[2020-08-15] MEDS ORDERED: ACETAMINOPHEN 650MG PO PRIOR TO INFUSION PO ONE (10:30)
[2020-08-15] MEDS ORDERED: INFLIXIMAB BIOSIMILAR 200 MG in NS 230 ML IV ONE (10:30)
== END 2020-08-15 13:15 | disposition home or self-care (01) ==
LOC: M INFU 10:19
PROVIDERS: ATTEND Internal Medicine Gastroenterology
DX: K50.90 Crohn's disease, unspecified, without complications (principal)
CPT/HCPCS: 96365; 96366; Q5103

== ENCOUNTER 2020-08-24 10:57 | Emergency (ER) | payer OTHER ==
[~2020-08-24] VITALS: Ht 157.5 cm; Wt 41.9 kg
[2020-08-24] MEDS ORDERED: INFL10VL IV (11:03)
[2020-08-24 12:15] LABS: BASO % 0.6 % (0.0-1.0); EOS # 0.2 10^3/uL (0.0-0.5); EOS % 3.5 % (0.0-3.0); HEMATOCRIT 40.3 % (36.0-47.0); HEMOGLOBIN 12.8 g/dl (12.0-15.5); LYMPH # 1.8 10^3/uL (1.5-5.0); LYMPH % 35.8 % (24.0-44.0); MEAN CORPUSCULAR HEMOGLOBIN 28.6 pg (27.0-33.0); MEAN CORPUSCULAR HGB CONC 31.8 g/dl (32.0-36.5); MEAN CORPUSCULAR VOLUME 90.2 fl (80.0-96.0); MONO # 0.4 10^3/uL (0.0-0.8); MONO % 8.1 % (2.0-8.0); NEUTROPHILS # 2.6 10^3/uL (1.5-8.5); NEUTROPHILS % 51.8 % (36.0-66.0); PLATELET COUNT, AUTOMATED 270 10^3/uL (150-450); RED BLOOD COUNT 4.47 10^6/uL (4.00-5.40); WHITE BLOOD COUNT 5.1 10^3/uL (4.0-10.0)
[2020-08-24 12:38] LABS: ALBUMIN 3.5 GM/DL (3.2-5.2); BILIRUBIN,DIRECT 0.1 MG/DL (0.0-0.2); BILIRUBIN,TOTAL 0.3 MG/DL (0.2-1.0); TOTAL PROTEIN 6.9 GM/DL (6.4-8.2)
[2020-08-24] MEDS ORDERED: ONDANSETRON 4MG/2ML VIAL IV ONE (14:05)
[2020-08-24] MEDS ORDERED: NS 1,000 ML IV ONE (14:05)
[2020-08-24] MEDS ORDERED: ISOVUE-370 76% 100ML VIAL As Ordered ONE (14:22)
[2020-08-24 14:31] LABS: C REACTIVE PROTEIN QUANTITATIV 1.41 MG/DL (0.00-0.30)
[2020-08-24] MEDS ORDERED: ACETAMINOPHEN TAB 650MG DOSE (2X325MG) PO ONE (14:40)
[2020-08-24 15:05] LABS: ERYTHROCYTE SEDIMENTATION RATE 5 mm/hr (0-20)
[2020-08-24] MEDS ORDERED: MORPHINE 2 MG/ML 1ML VIAL (J2270) IV ONE (15:30)
[2020-08-24 15:40] VITALS: BP 106/70
--- NOTE | 2020-08-24 15:42 | REP ---
INDICATION: hx of crohns, bilat lower abd pain. COMPARISON: None TECHNIQUE: Axial contrast-enhanced images from the lung bases to the pubic symphysis using 100 cc Isovue 370 intravenous contrast material. Coronal and sagittal reformations obtained. This CT examination was performed using the following dose reduction techniques: Automated exposure control, adjustment of mA and/or kv according to the patient's size, and the use of iterative reconstruction technique. FINDINGS: Liver, spleen, pancreas, gallbladder, bilateral adrenal glands and kidneys are normal. The enteric system is without obstruction. Enhancing loop of bowel in the right lower quadrant with mucosal thickening possibly distal/terminal ileum suggests acute enteritis and given the patient's history of Crohn's disease acute flare up. No associated evidence for perforation. Remainder of the small and large bowel appears grossly normal Pelvis demonstrates normal bladder. Uterus and adnexa appear prominent with prominent enhancement and small amount of pelvic fluid along with 1.5 cm left ovarian cyst. Findings likely physiologic although pelvic inflammatory disease cannot definitively be excluded and should be correlated clinically. No significant ascites. No free air. No intraperitoneal or retroperitoneal adenopathy. Abdominal aorta and vasculature appear normal. Musculoskeletal structures are intact and without acute osseous abnormality. IMPRESSION: 1. Mural thickening and enhancement of the distal small bowel in the right lower quadrant raise the possibility of acute Crohn's flare-up. No bowel obstruction or perforation. 2. Prominent appearance and enhancement to the uterus with small amount of pelvic free fluid and left ovarian cyst. Findings likely physiologic although pelvic inflammatory disease cannot be excluded. Clinical correlation is recommended. <Electronically signed by London Singh > 08/24/20 [id number]
[2020-08-24] MEDS ORDERED: ACET1TAB16 PO (16:03)
== END 2020-08-24 16:18 | disposition home or self-care (01) ==
LOC: M ED 10:57
DX: N83.202 Unspecified ovarian cyst, left side (principal); K50.90 Crohn's disease, unspecified, without complications; Z87.19 Personal history of other diseases of the digestive system; Z79.899 Other long term (current) drug therapy; Z88.8 Allergy status to other drugs, medicaments and biological substances; Z91.010 Allergy to peanuts; J30.89 Other allergic rhinitis; F17.210 Nicotine dependence, cigarettes, uncomplicated
CPT/HCPCS: 74177; 80047; 80076; 81001; 83605; 83690; 84702; 85025; 85652; 86140; 87086; 87490; 87590; 87661; 96361; 96374; 96375; 99284; J2270; J2405; Q9967

== ENCOUNTER → 2020-09-04 | Outpatient (CLI) | payer OTHER ==
[~2020-09-04] MED LIST changes: +ACET1TAB16 PO; +INFL10VL IV
[2020-09-04 15:13] LABS: HEMATOCRIT 42.4 % (36.0-47.0); HEMOGLOBIN 13.7 g/dl (12.0-15.5); MEAN CORPUSCULAR HEMOGLOBIN 29.4 pg (27.0-33.0); MEAN CORPUSCULAR HGB CONC 32.3 g/dl (32.0-36.5); PLATELET COUNT, AUTOMATED 306 10^3/uL (150-450); RED BLOOD COUNT 4.66 10^6/uL (4.00-5.40); WHITE BLOOD COUNT 5.8 10^3/uL (4.0-10.0)
[2020-09-04 15:35] LABS: ALBUMIN 3.7 GM/DL (3.2-5.2); ALT/SGPT 16 U/L (12-78); BILIRUBIN,TOTAL 0.4 MG/DL (0.2-1.0); BLOOD UREA NITROGEN 18 MG/DL (7-18); CALCIUM LEVEL 8.7 MG/DL (8.5-10.1); CARBON DIOXIDE LEVEL 26 MEQ/L (21-32); CHLORIDE LEVEL 109 MEQ/L (98-107); CREATININE FOR GFR 0.76 MG/DL (0.55-1.30); GLOMERULAR FILTRATION RATE > 60.0 (>60); GLUCOSE, FASTING 80 MG/DL (70-100); POTASSIUM SERUM 3.9 MEQ/L (3.5-5.1); SODIUM LEVEL 138 MEQ/L (136-145); TOTAL PROTEIN 7.6 GM/DL (6.4-8.2)
[2020-09-04 15:51] LABS: ERYTHROCYTE SEDIMENTATION RATE 2 mm/hr (0-20)
== END ==
LOC: M LAB 13:59
PROVIDERS: ATTEND Internal Medicine Gastroenterology
DX: K50.90 Crohn's disease, unspecified, without complications (principal); R10.84 Generalized abdominal pain; R63.4 Abnormal weight loss; K59.1 Functional diarrhea

== ENCOUNTER → 2020-09-11 | Outpatient (REF) | payer OTHER | LOC: M LAB 11:42 | PROVIDERS: ATTEND Internal Medicine Gastroenterology | DX: K50.90 Crohn's disease, unspecified, without complications (principal); R10.84 Generalized abdominal pain; K59.1 Functional diarrhea; R63.4 Abnormal weight loss ==

== ENCOUNTER 2020-10-10 10:26 | Outpatient (CLI) | payer OTHER ==
[~2020-10-10] VITALS: Ht 160 cm; Wt 45.0 kg
[2020-10-10] VITALS (8 sets, daily range): BP systolic 92–100; BP diastolic 54–66
[2020-10-10] MEDS ORDERED: NS 1,000 ML IV SCH (10:30)
[2020-10-10] MEDS ORDERED: INFLIXIMAB BIOSIMILAR 200 MG in NS 230 ML IV ONE (10:30)
[2020-10-10] MEDS ORDERED: ACETAMINOPHEN 650MG PO PRIOR TO INFUSION PO ONE (10:30)
== END 2020-10-10 13:15 | disposition home or self-care (01) ==
LOC: M INFU 10:26
PROVIDERS: ATTEND Internal Medicine Gastroenterology
DX: K50.90 Crohn's disease, unspecified, without complications (principal); Z88.8 Allergy status to other drugs, medicaments and biological substances; Z91.010 Allergy to peanuts
CPT/HCPCS: 96365; 96366; Q5103

== ENCOUNTER → 2020-11-21 | Outpatient (REF) | payer OTHER | LOC: M SFHCWAGY 10:49 | PROVIDERS: ATTEND Advanced Practice Midwife | DX: Z12.4 Encounter for screening for malignant neoplasm of cervix (principal) ==

== ENCOUNTER 2020-12-05 10:32 | Outpatient (CLI) | payer OTHER ==
[~2020-12-05] VITALS: Ht 160 cm; Wt 45.0 kg
[2020-12-05] VITALS (7 sets, daily range): BP systolic 94–112; BP diastolic 55–68
[~2020-12-05 10:32] MED LIST changes: +ACETAMINOPHEN 650MG PO PRIOR TO INFUSION PO ONE; +INFLIXIMAB BIOSIMILAR 200 MG in NS 230 ML IV ONE; +NS 1,000 ML IV SCH
== END 2020-12-05 13:45 | disposition home or self-care (01) ==
LOC: M INFU 10:32
PROVIDERS: ATTEND Internal Medicine Gastroenterology
DX: K50.90 Crohn's disease, unspecified, without complications (principal); Z88.8 Allergy status to other drugs, medicaments and biological substances
CPT/HCPCS: 96365; 96366; Q5103

== ENCOUNTER 2021-02-03 13:18 | Outpatient (CLI) | payer OTHER ==
[~2021-02-03] VITALS: Ht 162.6 cm; Wt 45.0 kg
[2021-02-03] MEDS ORDERED: INFLIXIMAB BIOSIMILAR 200 MG in NS 230 ML IV ONE (13:30)
[2021-02-03] MEDS ORDERED: ACETAMINOPHEN 650MG PO PRIOR TO INFUSION PO ONE (13:30)
[2021-02-03] MEDS ORDERED: NS 1,000 ML IV SCH (13:30)
[2021-02-03 13:45] VITALS: BP 103/61
[2021-02-03 14:15] VITALS: BP 111/63
[2021-02-03 14:30] VITALS: BP 110/64
[2021-02-03 15:00] VITALS: BP 107/60
[2021-02-03 15:30] VITALS: BP 97/55
[2021-02-03 16:15] VITALS: BP 102/54
== END 2021-02-03 16:15 | disposition home or self-care (01) ==
LOC: M INFU 13:18
PROVIDERS: ATTEND Internal Medicine Gastroenterology
DX: K50.90 Crohn's disease, unspecified, without complications (principal); Z88.8 Allergy status to other drugs, medicaments and biological substances
CPT/HCPCS: 96365; 96366; Q5103

== ENCOUNTER → 2021-03-04 | Outpatient (REF) | payer OTHER ==
[~2021-03-04] MED LIST changes: -ACETAMINOPHEN 650MG PO PRIOR TO INFUSION PO ONE; -D 202000 PO; -INFLIXIMAB BIOSIMILAR 200 MG in NS 230 ML IV ONE; -NS 1,000 ML IV SCH; +VITA200032 PO
== END ==
LOC: M WUC 19:18
PROVIDERS: ATTEND Nurse Practitioner Family
DX: J02.9 Acute pharyngitis, unspecified (principal)

== ENCOUNTER 2021-03-31 09:54 | Outpatient (CLI) | payer OTHER ==
[~2021-03-31] VITALS: Ht 157.5 cm; Wt 40.8 kg
[2021-03-31 10:00] VITALS: BP 110/58
[2021-03-31] MEDS ORDERED: INFLIXIMAB BIOSIMILAR 200 MG in NS 230 ML IV ONE (10:00)
[2021-03-31] MEDS ORDERED: NS 1,000 ML IV SCH (10:00)
[2021-03-31] MEDS ORDERED: ACETAMINOPHEN 650MG PO PRIOR TO INFUSION PO ONE (10:00)
[2021-03-31 11:45] VITALS: BP 99/66
[2021-03-31 12:15] VITALS: BP 118/71
[2021-03-31 12:30] VITALS: BP 99/61
[2021-03-31 13:00] VITALS: BP 104/60
[2021-03-31 14:00] VITALS: BP 111/64
== END 2021-03-31 14:00 | disposition home or self-care (01) ==
LOC: M INFU 09:54
PROVIDERS: ATTEND Internal Medicine Gastroenterology
DX: K50.90 Crohn's disease, unspecified, without complications (principal); Z88.8 Allergy status to other drugs, medicaments and biological substances; Z91.010 Allergy to peanuts
CPT/HCPCS: 96365; 96366; Q5103

== ENCOUNTER 2021-04-03 10:55 | Outpatient (CLI) | payer OTHER ==
[~2021-04-03] VITALS: Ht 157.5 cm; Wt 40.0 kg
[~2021-04-03 10:55] MED LIST changes: +ALBUTEROL 90 MCG/ACT 8GM HFA INHALER INH PRN; +ALBUTEROL SULFATE 2.5 MG/0.5 ML INH NEB SOLN INH PRN; +EPINEPHrine INJ 1 MG/ML 1ML AMP IM PRN; +NS 1,000 ML IV SCH; +diphenhydrAMINE 50MG/ML VIAL (J1200) IV PRN; +methylPREDNISolone 125MG 2ML VIAL IV PRN
[2021-04-03] MEDS ORDERED: SOTROVIMAB 500 MG in NS 100 ML IV ONE (11:00)
[2021-04-03 11:30] VITALS: BP 126/79
[2021-04-03 12:00] VITALS: BP 110/73
[2021-04-03 13:00] VITALS: BP 146/85
== END 2021-04-03 13:11 | disposition home or self-care (01) ==
LOC: M INFU 10:55 → M OPCLI4PR 10:55
PROVIDERS: ATTEND Nurse Practitioner Family
DX: U07.1 COVID-19 (principal)

== ENCOUNTER 2021-05-26 10:17 | Outpatient (CLI) | payer OTHER ==
[~2021-05-26] VITALS: Ht 157.5 cm; Wt 45.0 kg
[~2021-05-26 10:17] MED LIST changes: -ALBUTEROL 90 MCG/ACT 8GM HFA INHALER INH PRN; -ALBUTEROL SULFATE 2.5 MG/0.5 ML INH NEB SOLN INH PRN; -EPINEPHrine INJ 1 MG/ML 1ML AMP IM PRN; -NS 1,000 ML IV SCH; -diphenhydrAMINE 50MG/ML VIAL (J1200) IV PRN; -methylPREDNISolone 125MG 2ML VIAL IV PRN
[2021-05-26 10:25] VITALS: BP 103/64
[2021-05-26] MEDS ORDERED: INFLIXIMAB BIOSIMILAR 200 MG in NS 230 ML IV ONE (10:30)
[2021-05-26] MEDS ORDERED: ACETAMINOPHEN 650MG PO PRIOR TO INFUSION PO ONE (10:30)
[2021-05-26] MEDS ORDERED: NS 1,000 ML IV SCH (10:30)
[2021-05-26 11:15] VITALS: BP 99/65
[2021-05-26 11:30] VITALS: BP 110/77
[2021-05-26 12:15] VITALS: BP 108/69
[2021-05-26 12:45] VITALS: BP 101/60
[2021-05-26 13:15] VITALS: BP 126/71
== END 2021-05-26 13:25 | disposition home or self-care (01) ==
LOC: M INFU 10:17
PROVIDERS: ATTEND Internal Medicine Gastroenterology
DX: K50.90 Crohn's disease, unspecified, without complications (principal); Z88.8 Allergy status to other drugs, medicaments and biological substances
CPT/HCPCS: 96413; 96415; Q5103

== ENCOUNTER → 2021-07-16 | Outpatient (REF) | payer OTHER ==
[~2021-07-16] MED LIST changes: -ACET1TAB16 PO; +ACET300T48 PO
[2021-07-16 13:39] LABS: APPEARANCE, URINE HAZY (CLEAR); BACTERIA, URINE AUTO NEGATIVE (NEGATIVE); BILIRUBIN, URINE AUTO NEGATIVE (NEGATIVE); BLOOD, URINE BLOOD NEGATIVE (NEGATIVE); COLOR, URINE YELLOW (YELLOW); GLUCOSE, URINE (UA) AUTO NEGATIVE (NEGATIVE); KETONE, URINE AUTO NEGATIVE (NEGATIVE); LEUKOCYTE ESTERASE, URINE AUTO 1+ (NEGATIVE); MUCUS, URINE LARGE (NEGATIVE); NITRITE, URINE AUTO NEGATIVE (NEGATIVE); PROTEIN, URINE AUTO NEGATIVE (NEGATIVE); RBC, URINE AUTO 8 /HPF (0-3); SPECIFIC GRAVITY URINE AUTO 1.025 (1.002-1.035); SQUAMOUS EPITHELIAL CELL UR AU 3 /HPF (0-6); UROBILINOGEN, URINE AUTO 0.2 mg/dL (0.0-2.0); WBC, URINE AUTO 5 /HPF (0-3)
== END ==
LOC: M SFHCWAGY 13:11
PROVIDERS: ATTEND Obstetrics & Gynecology
DX: R10.2 Pelvic and perineal pain (principal)

== ENCOUNTER 2021-07-21 10:41 | Outpatient (CLI) | payer OTHER ==
[~2021-07-21] VITALS: Ht 157.5 cm; Wt 45.0 kg
[~2021-07-21 10:41] MED LIST changes: +ACETAMINOPHEN 650MG PO PRIOR TO INFUSION PO ONE; +INFLIXIMAB BIOSIMILAR 200 MG in NS 230 ML IV ONE; +NS 1,000 ML IV SCH
[2021-07-21 10:45] VITALS: BP 110/68
[2021-07-21 11:45] VITALS: BP 102/57
[2021-07-21 12:00] VITALS: BP 95/55
[2021-07-21 12:15] VITALS: BP 97/57
[2021-07-21 12:45] VITALS: BP 92/54
[2021-07-21 13:30] VITALS: BP 96/57
== END 2021-07-21 13:30 | disposition home or self-care (01) ==
LOC: M INFU 10:41
PROVIDERS: ATTEND Internal Medicine Gastroenterology
DX: K50.90 Crohn's disease, unspecified, without complications (principal); Z91.010 Allergy to peanuts; Z88.6 Allergy status to analgesic agent
CPT/HCPCS: 96413; 96415; Q5103

== ENCOUNTER → 2021-07-21 | Outpatient (CLI) | payer OTHER | LOC: M WHC 13:40 | PROVIDERS: ATTEND Obstetrics & Gynecology | DX: R10.2 Pelvic and perineal pain (principal) ==

== ENCOUNTER → 2021-11-12 | Outpatient (CLI) | payer OTHER ==
[~2021-11-12] MED LIST changes: -ACETAMINOPHEN 650MG PO PRIOR TO INFUSION PO ONE; -AZAT50TA2 PO; +AZAT50TA37 PO; +FERR324T2 PO; -INFLIXIMAB BIOSIMILAR 200 MG in NS 230 ML IV ONE; -NS 1,000 ML IV SCH; +VITA100093 PO
== END ==
LOC: M LABSMTC 10:17
PROVIDERS: ATTEND Anesthesiology
DX: Z01.818 Encounter for other preprocedural examination (principal); Z11.52 Encounter for screening for COVID-19

== ENCOUNTER 2021-11-17 13:40 | Day surgery (SDC) | payer OTHER ==
[~2021-11-17] VITALS: Ht 157.5 cm; Wt 39.0 kg
[~2021-11-17 13:40] MED LIST changes: +MIDAZOLAM INJ 2MG/2ML VIAL (J2250 PER 1MG) As Ordered ONE; +ROCURONIUM BROMIDE 50 MG/5 ML VIAL As Ordered ONE; +fentaNYL 100 MCG/2 ML INJECTION As Ordered ONE; +propofoL 200 MG/20 ML VIAL As Ordered ONE
[2021-11-17] MEDS ORDERED: ONDANSETRON 4MG 2ML VIAL As Ordered ONE (13:41)
[2021-11-17] MEDS ORDERED: LIDOCAINE 2% 100MG/5ML SDV (FOR ANES.) As Ordered ONE (13:42)
[2021-11-17] MEDS ORDERED: dexameTHASONE 4 MG/ML 1ML VIAL (J1100 PER 1MG) As Ordered ONE ×2 (13:42→15:19)
[2021-11-17] MEDS ORDERED: LR 1,000 ML IV SCH ×3 (14:05→18:10)
[2021-11-17 14:24] LABS: HEMATOCRIT 40.9 % (36.0-47.0); HEMOGLOBIN 12.8 g/dl (12.0-15.5); MEAN CORPUSCULAR HEMOGLOBIN 28.9 pg (27.0-33.0); MEAN CORPUSCULAR HGB CONC 31.3 g/dl (32.0-36.5); MEAN CORPUSCULAR VOLUME 92.3 fl (80.0-96.0); PLATELET COUNT, AUTOMATED 346 10^3/uL (150-450); RED BLOOD COUNT 4.43 10^6/uL (4.00-5.40); WHITE BLOOD COUNT 7.1 10^3/uL (4.0-10.0)
[2021-11-17] MEDS ORDERED: SILVER NITRATE APPLICATOR (1 = QTY 10) As Ordered ONE (14:24)
[2021-11-17] MEDS ORDERED: BUPIVACAINE HCL 0.25% 10ML VIAL As Ordered ONE (14:24)
[2021-11-17 14:58] LABS: HCG, SERUM QUALITATIVE NEGATIVE (NEGATIVE)
[2021-11-17] MEDS ORDERED: GLYCOPYRROLATE INJ 0.2 MG/ML 2 ML VIAL As Ordered ONE (15:34)
[2021-11-17] MEDS ORDERED: ePHEDrine SULFATE 25 MG/5 ML(5MG/ML) SYRINGE As Ordered ONE (15:34)
[2021-11-17] MEDS ORDERED: PHENYLephrine 500MCG 5ML (100MCG/ML) SYRINGE As Ordered ONE (15:34)
[2021-11-17] MEDS ORDERED: SUGAMMADEX SODIUM 500 MG/5 ML VIAL (BRIDION) As Ordered ONE (15:57)
[2021-11-17] MEDS ORDERED: ACETAMINOPHEN 1000MG 100ML IV BTL (OFIRMEV) (J0131 PER 10MG) As Ordered ONE (15:58)
[2021-11-17] MEDS ORDERED: fentaNYL 100 MCG/2 ML INJECTION IV PRN (16:15)
[2021-11-17] MEDS ORDERED: ONDANSETRON 4MG 2ML VIAL IV PRN (16:15)
[2021-11-17] MEDS ORDERED: oxyCODONE 5MG TAB PO PRN (16:15)
[2021-11-17] MEDS ORDERED: OXYC1TAB23 PO (16:44)
[2021-11-17 17:20] VITALS: BP 93/60
== END 2021-11-17 17:31 | disposition home or self-care (01) ==
LOC: M SDC 13:40
PROVIDERS: ATTEND Obstetrics & Gynecology
DX: N80.9 Endometriosis, unspecified (principal); K50.90 Crohn's disease, unspecified, without complications; D64.9 Anemia, unspecified; Z86.19 Personal history of other infectious and parasitic diseases; Z79.899 Other long term (current) drug therapy; Z88.8 Allergy status to other drugs, medicaments and biological substances; Z91.010 Allergy to peanuts; Z91.018 Allergy to other foods; J30.1 Allergic rhinitis due to pollen
CPT/HCPCS: 36415; 49320; 84703; 85027; 86850; 86900; 86901; J0131; J1100; J2250; J2370; J2405; J3010

== ENCOUNTER 2021-12-04 13:05 | Outpatient (CLI) | payer OTHER ==
[2021-12-04] VITALS (7 sets, daily range): BP systolic 97–111; BP diastolic 60–72
[~2021-12-04 13:05] MED LIST changes: +ACETAMINOPHEN 650MG PO PRIOR TO INFUSION PO ONE; +INFLIXIMAB BIOSIMILAR 200 MG in NS 230 ML IV ONE; -MIDAZOLAM INJ 2MG/2ML VIAL (J2250 PER 1MG) As Ordered ONE; +NS 1,000 ML IV SCH; -ROCURONIUM BROMIDE 50 MG/5 ML VIAL As Ordered ONE; -fentaNYL 100 MCG/2 ML INJECTION As Ordered ONE; -propofoL 200 MG/20 ML VIAL As Ordered ONE
== END 2021-12-04 16:00 ==
LOC: M INFU 13:05
PROVIDERS: ATTEND Internal Medicine Gastroenterology
DX: K50.90 Crohn's disease, unspecified, without complications (principal); Z88.8 Allergy status to other drugs, medicaments and biological substances
CPT/HCPCS: 96413; 96415; Q5103

== ENCOUNTER 2022-01-29 10:05 | Outpatient (CLI) | payer OTHER ==
[~2022-01-29] VITALS: Ht 157.5 cm; Wt 41.0 kg
[~2022-01-29 10:05] MED LIST changes: -ACETAMINOPHEN 650MG PO PRIOR TO INFUSION PO ONE; -INFLIXIMAB BIOSIMILAR 200 MG in NS 230 ML IV ONE; -NS 1,000 ML IV SCH
[2022-01-29 10:25] VITALS: BP 108/69
[2022-01-29] MEDS ORDERED: ACETAMINOPHEN 650MG PO PRIOR TO INFUSION PO ONE (11:00)
[2022-01-29] MEDS ORDERED: INFLIXIMAB BIOSIMILAR 200 MG in NS 230 ML IV ONE (11:00)
[2022-01-29] MEDS ORDERED: NS 1,000 ML IV SCH (11:00)
[2022-01-29 12:48] VITALS: BP 110/60
== END 2022-01-29 12:45 | disposition home or self-care (01) ==
LOC: M INFU 10:05
PROVIDERS: ATTEND Internal Medicine Gastroenterology
DX: K50.90 Crohn's disease, unspecified, without complications (principal); Z88.6 Allergy status to analgesic agent; Z91.010 Allergy to peanuts; Z91.048 Other nonmedicinal substance allergy status
CPT/HCPCS: 96413; 96415; Q5103

== ENCOUNTER 2022-03-26 10:10 | Outpatient (CLI) | payer OTHER ==
[~2022-03-26] VITALS: Ht 157.5 cm; Wt 41.0 kg
[2022-03-26 10:33] VITALS: BP 109/68
[2022-03-26] MEDS ORDERED: ACETAMINOPHEN 650MG PO PRIOR TO INFUSION PO ONE (11:00)
[2022-03-26] MEDS ORDERED: INFLIXIMAB BIOSIMILAR 200 MG in NS 230 ML IV ONE (11:00)
[2022-03-26] MEDS ORDERED: NS 1,000 ML IV SCH (11:00)
[2022-03-26 12:48] VITALS: BP 104/57
== END 2022-03-26 12:50 | disposition home or self-care (01) ==
LOC: M INFU 10:10
PROVIDERS: ATTEND Internal Medicine Gastroenterology
DX: K50.90 Crohn's disease, unspecified, without complications (principal); Z88.6 Allergy status to analgesic agent; Z91.010 Allergy to peanuts; Z91.048 Other nonmedicinal substance allergy status
CPT/HCPCS: 96413; 96415; Q5103

== ENCOUNTER 2022-05-28 10:33 | Outpatient (CLI) | payer OTHER ==
[~2022-05-28] VITALS: Ht 157.5 cm; Wt 41.0 kg
[2022-05-28] MEDS ORDERED: NS 1,000 ML IV SCH (11:00)
[2022-05-28] MEDS ORDERED: INFLIXIMAB BIOSIMILAR 200 MG in NS 230 ML IV ONE (11:00)
[2022-05-28] MEDS ORDERED: ACETAMINOPHEN 650MG PO PRIOR TO INFUSION PO ONE (11:00)
[2022-05-28 11:23] VITALS: BP 111/65
[2022-05-28 12:30] VITALS: BP 106/60
[2022-05-28 12:45] VITALS: BP 109/56
[2022-05-28 13:15] VITALS: BP 104/57
[2022-05-28 13:46] VITALS: BP 104/55
== END 2022-05-28 13:45 | disposition home or self-care (01) ==
LOC: M INFU 10:33
PROVIDERS: ATTEND Internal Medicine Gastroenterology
DX: K50.90 Crohn's disease, unspecified, without complications (principal); Z88.8 Allergy status to other drugs, medicaments and biological substances
CPT/HCPCS: 96413; 96415; Q5103

== ENCOUNTER 2022-07-23 10:50 | Outpatient (CLI) | payer OTHER ==
[~2022-07-23] VITALS: Ht 162.6 cm; Wt 45.0 kg
[2022-07-23] MEDS ORDERED: NS 1,000 ML IV SCH (11:00)
[2022-07-23] MEDS ORDERED: INFLIXIMAB BIOSIMILAR 200 MG in NS 230 ML IV ONE (11:00)
[2022-07-23] MEDS ORDERED: ACETAMINOPHEN 650MG PO PRIOR TO INFUSION PO ONE (11:00)
[2022-07-23 11:49] VITALS: BP 110/65
[2022-07-23 12:00] VITALS: BP 104/55
[2022-07-23 13:15] VITALS: BP 115/73
== END 2022-07-23 13:15 | disposition home or self-care (01) ==
LOC: M INFU 10:50
PROVIDERS: ATTEND Internal Medicine Gastroenterology
DX: K50.90 Crohn's disease, unspecified, without complications (principal); Z88.8 Allergy status to other drugs, medicaments and biological substances
CPT/HCPCS: 96413; 96415; Q5103

== ENCOUNTER 2022-08-01 23:05 | Emergency (ER) | payer OTHER ==
[~2022-08-01] VITALS: Ht 157.5 cm; Wt 47.5 kg
[2022-08-01 23:07] VITALS: BP 111/74
== END 2022-08-01 23:48 | disposition left against medical advice (07) ==
LOC: M ED 23:05
DX: R06.02 Shortness of breath (principal); Z53.21 Procedure and treatment not carried out due to patient leaving prior to being seen by health care provider

== ENCOUNTER 2022-10-05 09:35 | Outpatient (CLI) | payer OTHER ==
[~2022-10-05] VITALS: Ht 157.5 cm; Wt 45.0 kg
[~2022-10-05 09:35] MED LIST changes: +ACETAMINOPHEN 650MG PO PRIOR TO INFUSION PO ONE; +INFLIXIMAB BIOSIMILAR 200 MG in NS 230 ML IV ONE; +NS 1,000 ML IV SCH
[2022-10-05 10:13] VITALS: BP 117/73; TEMP 98.3; O2SAT 98
[2022-10-05 12:15] VITALS: BP 119/65; TEMP 98.5; O2SAT 100
== END 2022-10-05 12:30 | disposition home or self-care (01) ==
LOC: M INFU 09:35
PROVIDERS: ATTEND Internal Medicine Gastroenterology
DX: K50.90 Crohn's disease, unspecified, without complications (principal); Z88.8 Allergy status to other drugs, medicaments and biological substances
CPT/HCPCS: 96413; 96415; Q5103

== ENCOUNTER 2022-11-30 09:00 | Outpatient (CLI) | payer OTHER ==
[~2022-11-30] VITALS: Ht 157.5 cm; Wt 45.0 kg
[~2022-11-30 09:00] MED LIST changes: -ACETAMINOPHEN 650MG PO PRIOR TO INFUSION PO ONE; +ACETAMINOPHEN TAB 650MG DOSE (2X325MG) PO ONE; +CURRENT HEIGHT AND WEIGHT NEEDED ON PATIENT XX SCH; -INFLIXIMAB BIOSIMILAR 200 MG in NS 230 ML IV ONE
[2022-11-30 09:07] VITALS: BP 108/65; TEMP 98.8; O2SAT 100
[2022-11-30] MEDS ORDERED: INFLIXIMAB BIOSIMILAR 200 MG in NS 230 ML IV ONE (09:10)
[2022-11-30 10:00] VITALS: BP 113/59; TEMP 98.1; O2SAT 100
[2022-11-30 11:25] VITALS: BP 107/65; TEMP 98.4; O2SAT 98
== END 2022-11-30 11:40 ==
LOC: M INFU 09:00
PROVIDERS: ATTEND Internal Medicine Gastroenterology
DX: K50.90 Crohn's disease, unspecified, without complications (principal); Z88.6 Allergy status to analgesic agent; Z88.8 Allergy status to other drugs, medicaments and biological substances; Z91.010 Allergy to peanuts; Z91.048 Other nonmedicinal substance allergy status
CPT/HCPCS: 96413; 96415; Q5103

== ENCOUNTER → 2023-01-12 | Outpatient (REF) | payer OTHER, MEDICAID ==
[~2023-01-12] MED LIST changes: -ACETAMINOPHEN TAB 650MG DOSE (2X325MG) PO ONE; -CURRENT HEIGHT AND WEIGHT NEEDED ON PATIENT XX SCH; -NS 1,000 ML IV SCH
== END ==
LOC: M SFHCWAGY 15:37
PROVIDERS: ATTEND Advanced Practice Midwife
DX: Z12.4 Encounter for screening for malignant neoplasm of cervix (principal); Z01.419 Encounter for gynecological examination (general) (routine) without abnormal findings; Z77.9 Other contact with and (suspected) exposures hazardous to health

== ENCOUNTER → 2023-02-04 | Outpatient (CLI) | payer OTHER ==
[~2023-02-04] VITALS: Ht 157.5 cm; Wt 45.4 kg
[~2023-02-04] MED LIST changes: +ACETAMINOPHEN 650MG PO PRIOR TO INFUSION PO ONE; +INFLIXIMAB BIOSIMILAR 200 MG in NS 230 ML IV ONE; +NS 1,000 ML IV SCH
[2023-02-04 12:29] VITALS: BP 104/58; TEMP 98.1; O2SAT 99
[2023-02-04 12:30] VITALS: BP 104/58; O2SAT 99
[2023-02-04 14:00] VITALS: BP 107/55; O2SAT 100
[2023-02-04 14:30] VITALS: BP 103/56; O2SAT 100
[2023-02-04 15:30] VITALS: BP 95/51; O2SAT 98
== END ==
LOC: M INFU 12:02
PROVIDERS: ATTEND Internal Medicine Gastroenterology
DX: K50.90 Crohn's disease, unspecified, without complications (principal); Z88.8 Allergy status to other drugs, medicaments and biological substances
CPT/HCPCS: 96413; 96415; Q5103

== ENCOUNTER 2023-06-08 09:15 | Outpatient (CLI) | payer OTHER ==
[~2023-06-08] VITALS: Ht 157.5 cm; Wt 42.2 kg
[~2023-06-08 09:15] MED LIST changes: -INFLIXIMAB BIOSIMILAR 200 MG in NS 230 ML IV ONE
[2023-06-08 09:35] VITALS: BP 114/67; TEMP 98.8; O2SAT 100
[2023-06-08] MEDS: INFLIXIMAB BIOSIMILAR 200 MG in NS 230 ML IV ONE (09:35)
[2023-06-08 09:50] VITALS: BP 111/67; TEMP 99.4; O2SAT 99
[2023-06-08 10:20] VITALS: BP 103/68; TEMP 99; O2SAT 98
[2023-06-08 10:35] VITALS: BP 102/61; TEMP 99; O2SAT 98
[2023-06-08 11:41] VITALS: BP 102/65; O2SAT 100
== END 2023-06-08 11:40 | disposition home or self-care (01) ==
LOC: M INFU 09:15
PROVIDERS: ATTEND Internal Medicine Gastroenterology
DX: K50.90 Crohn's disease, unspecified, without complications (principal); Z88.5 Allergy status to narcotic agent; Z88.6 Allergy status to analgesic agent; Z91.010 Allergy to peanuts; Z91.048 Other nonmedicinal substance allergy status
CPT/HCPCS: 96413; 96415; Q5103

== ENCOUNTER 2023-08-04 15:00 | Outpatient (CLI) | payer OTHER ==
[~2023-08-04] VITALS: Ht 157.5 cm; Wt 42.0 kg
[2023-08-04 15:00] VITALS: BP 118/71; O2SAT 98
[~2023-08-04 15:00] MED LIST changes: -ACETAMINOPHEN 650MG PO PRIOR TO INFUSION PO ONE
[2023-08-04] MEDS: INFLIXIMAB BIOSIMILAR 200 MG in NS 230 ML IV ONE (15:32)
[2023-08-04] MEDS: ACETAMINOPHEN 650MG PO PRIOR TO INFUSION PO ONE (15:33)
[2023-08-04 16:45] VITALS: BP 108/69; O2SAT 99
[2023-08-04 17:31] VITALS: BP 120/80; O2SAT 100
[2023-08-04 18:00] VITALS: BP 112/72; O2SAT 100
== END 2023-08-04 18:00 | disposition home or self-care (01) ==
LOC: M INFU 15:00
PROVIDERS: ATTEND Internal Medicine Gastroenterology
DX: K50.90 Crohn's disease, unspecified, without complications (principal); Z88.8 Allergy status to other drugs, medicaments and biological substances
CPT/HCPCS: 96413; 96415; Q5103

== ENCOUNTER → 2023-10-06 | Outpatient (CLI) | payer OTHER ==
[~2023-10-06] VITALS: Ht 157.5 cm; Wt 43.2 kg
[~2023-10-06] MED LIST changes: +ONDA-282 PO; -ONDA4TAB6 PO
[2023-10-06 11:25] VITALS: BP 106/72; O2SAT 100
[2023-10-06] MEDS: ACETAMINOPHEN 650MG PO PRIOR TO INFUSION PO ONE (13:05)
[2023-10-06] MEDS: INFLIXIMAB BIOSIMILAR 200 MG in NS 230 ML IV ONE (13:06)
[2023-10-06 15:26] VITALS: BP 104/57; O2SAT 98
== END ==
LOC: M INFU 11:11
PROVIDERS: ATTEND Internal Medicine Gastroenterology
DX: K50.90 Crohn's disease, unspecified, without complications (principal); Z88.8 Allergy status to other drugs, medicaments and biological substances; Z91.010 Allergy to peanuts; Z91.09 Other allergy status, other than to drugs and biological substances
CPT/HCPCS: 96365; 96366; Q5103

== ENCOUNTER 2023-12-03 11:07 | Outpatient (CLI) | payer OTHER ==
[~2023-12-03] VITALS: Ht 157.5 cm; Wt 43.2 kg
[~2023-12-03 11:07] MED LIST changes: -NS 1,000 ML IV SCH
[2023-12-03 11:20] VITALS: BP 108/72; O2SAT 99
[2023-12-03] MEDS ORDERED: NS 1,000 ML IV SCH (11:30)
[2023-12-03] MEDS: ACETAMINOPHEN 650MG PO PRIOR TO INFUSION PO ONE (11:33)
[2023-12-03] MEDS: INFLIXIMAB BIOSIMILAR 200 MG in NS 230 ML IV ONE (11:53)
[2023-12-03 12:30] VITALS: BP 103/59; O2SAT 98
[2023-12-03 14:13] VITALS: BP 107/62; O2SAT 100
== END 2023-12-03 14:15 ==
LOC: M INFU 11:07
PROVIDERS: ATTEND Internal Medicine Gastroenterology
DX: K50.90 Crohn's disease, unspecified, without complications (principal); Z88.8 Allergy status to other drugs, medicaments and biological substances; Z91.09 Other allergy status, other than to drugs and biological substances; Z91.010 Allergy to peanuts
CPT/HCPCS: 96413; 96415; Q5103

== ENCOUNTER → 2024-01-25 | Outpatient (REF) | payer OTHER | LOC: M SFHCWAGY 17:41 | PROVIDERS: ATTEND Advanced Practice Midwife | DX: Z12.4 Encounter for screening for malignant neoplasm of cervix (principal); Z01.419 Encounter for gynecological examination (general) (routine) without abnormal findings; Z77.9 Other contact with and (suspected) exposures hazardous to health ==

== ENCOUNTER 2024-01-26 11:07 | Outpatient (CLI) | payer OTHER ==
[~2024-01-26] VITALS: Ht 157.5 cm; Wt 43.5 kg
[2024-01-26] MEDS: ACETAMINOPHEN 650MG PO PRIOR TO INFUSION PO ONE (11:00)
[~2024-01-26 11:07] MED LIST changes: +NS 1,000 ML IV SCH
[2024-01-26] MEDS: INFLIXIMAB BIOSIMILAR 200 MG in NS 230 ML IV ONE (12:19)
[2024-01-26 12:20] VITALS: BP 112/60; O2SAT 99
[2024-01-26 12:50] VITALS: BP 113/72; O2SAT 98
[2024-01-26 13:00] VITALS: BP 101/58; O2SAT 97
[2024-01-26 13:30] VITALS: BP 99/54; O2SAT 97
[2024-01-26 14:20] VITALS: BP 103/44; O2SAT 99
== END 2024-01-26 14:30 ==
LOC: M INFU 11:07
PROVIDERS: ATTEND Internal Medicine Gastroenterology
DX: K50.90 Crohn's disease, unspecified, without complications (principal); Z88.8 Allergy status to other drugs, medicaments and biological substances; Z91.09 Other allergy status, other than to drugs and biological substances; Z91.010 Allergy to peanuts
CPT/HCPCS: 96365; 96366; Q5103

== ENCOUNTER → 2024-03-08 | Outpatient (CLI) | payer OTHER ==
[~2024-03-08] MED LIST changes: -NS 1,000 ML IV SCH
== END ==
LOC: M WHC 09:02
PROVIDERS: ATTEND Advanced Practice Midwife
DX: N83.291 Other ovarian cyst, right side (principal)

== ENCOUNTER → 2024-04-15 | Outpatient (REF) | payer OTHER | LOC: M WUC 11:57 | PROVIDERS: ATTEND Physician Assistant | DX: R19.7 Diarrhea, unspecified (principal) ==

== ENCOUNTER 2024-05-03 17:00 | Emergency (ER) | payer OTHER ==
[~2024-05-03] VITALS: Ht 157.5 cm; Wt 41.0 kg
[2024-05-03 18:11] LABS: BASO # 0.1 10^3/uL (0.0-0.2); BASO % 0.5 % (0.0-1.0); EOS # 0.2 10^3/uL (0.0-0.5); EOS % 1.8 % (0.0-3.0); HEMATOCRIT 36.7 % (36.0-47.0); HEMOGLOBIN 11.8 g/dl (12.0-15.5); LYMPH # 2.3 10^3/uL (1.5-5.0); LYMPH % 24.7 % (24.0-44.0); MEAN CORPUSCULAR HEMOGLOBIN 28.9 pg (27.0-33.0); MEAN CORPUSCULAR HGB CONC 32.2 g/dl (32.0-36.5); MEAN CORPUSCULAR VOLUME 89.7 fl (80.0-96.0); MONO # 0.8 10^3/uL (0.0-0.8); MONO % 8.7 % (2.0-8.0); NEUTROPHILS # 5.8 10^3/uL (1.5-8.5); NEUTROPHILS % 64.1 % (36.0-66.0); PLATELET COUNT, AUTOMATED 420 10^3/uL (150-450); RED BLOOD COUNT 4.09 10^6/uL (4.00-5.40); WHITE BLOOD COUNT 9.1 10^3/uL (4.0-10.0)
[2024-05-03 18:39] LABS: LIPASE 74 U/L (12-53)
[2024-05-03 18:41] LABS: ALBUMIN 3.5 G/DL (3.2-5.2); ALKALINE PHOSPHATASE 63 U/L (35-104); ALT/SGPT 16 U/L (7.0-40); AST/SGOT 16 U/L (<34); BILIRUBIN,DIRECT 0.1 MG/DL (<0.4); BILIRUBIN,TOTAL 0.3 MG/DL (0.3-1.2); BLOOD UREA NITROGEN 9 MG/DL (9-23); CARBON DIOXIDE LEVEL 24 MMOL/L (20-31); CHLORIDE LEVEL 107 MMOL/L (98-107); CREATININE FOR GFR 0.61 MG/DL (0.55-1.30); GLOMERULAR FILTRATION RATE > 60.0 (>60); GLUCOSE, FASTING 85 MG/DL (60-100); POTASSIUM SERUM 3.9 MMOL/L (3.5-5.1); SODIUM LEVEL 140 MMOL/L (136-145)
[2024-05-03] MEDS: ACETAMINOPHEN *IV* 1,000 MG in IV 1 EA IV ONE (18:42)
[2024-05-03 21:44] VITALS: BP 103/61; TEMP 98; O2SAT 98
[2024-05-03] MEDS: MORPHINE 2 MG/ML 1ML VIAL IV ONE (21:46)
[2024-05-03] MEDS: NORCO 5/325MG TABLET (HOME DOSE PACK) PO ONE (21:47)
[2024-05-03] MEDS: ONDANSETRON 4MG 2ML VIAL IV ONE (21:50)
== END 2024-05-03 22:07 | disposition home or self-care (01) ==
LOC: M ED 17:00
DX: K50.919 Crohn's disease, unspecified, with unspecified complications (principal); A04.72 Enterocolitis due to Clostridium difficile, not specified as recurrent; R19.7 Diarrhea, unspecified; Z88.6 Allergy status to analgesic agent; Z88.8 Allergy status to other drugs, medicaments and biological substances; Z91.09 Other allergy status, other than to drugs and biological substances; Z91.010 Allergy to peanuts; Z79.899 Other long term (current) drug therapy
CPT/HCPCS: 71045; 74018; 80048; 80076; 83690; 84702; 85025; 96374; 96375; 99284; J0131; J2405

== ENCOUNTER → 2024-05-04 | Outpatient (REF) | payer OTHER | LOC: M LAB REF 09:45 | PROVIDERS: ATTEND Physician Assistant Medical | DX: R19.7 Diarrhea, unspecified (principal) ==

== ENCOUNTER 2024-05-24 11:53 | Outpatient (CLI) | payer OTHER ==
[~2024-05-24] VITALS: Ht 157.5 cm; Wt 43.0 kg
[2024-05-24] MEDS ORDERED: NS (Normal Saline) 0.9% 1,000 ML IV SCH (12:00)
[2024-05-24] MEDS: INFLIXIMAB BIOSIMILAR 200 MG in NS 230 ML IV ONE (12:56)
[2024-05-24 14:50] VITALS: BP 108/68; O2SAT 98
== END 2024-05-24 14:45 | disposition home or self-care (01) ==
LOC: M INFU 11:53
PROVIDERS: ATTEND Internal Medicine Gastroenterology
DX: K50.90 Crohn's disease, unspecified, without complications (principal); Z88.1 Allergy status to other antibiotic agents; Z88.6 Allergy status to analgesic agent; Z91.09 Other allergy status, other than to drugs and biological substances; Z91.010 Allergy to peanuts
CPT/HCPCS: 96413; 96415; Q5103

== ENCOUNTER 2024-07-21 11:56 | Outpatient (CLI) | payer OTHER ==
[~2024-07-21] VITALS: Ht 157.5 cm; Wt 43.0 kg
[~2024-07-21 11:56] MED LIST changes: +NS (Normal Saline) 0.9% 1,000 ML IV SCH; +PRED-1142 PO; -PRED1TABL PO; -PRED50TA PO; +PRED50TA57 PO
[2024-07-21 12:00] VITALS: BP 115/76; O2SAT 100
[2024-07-21] MEDS: INFLIXIMAB BIOSIMILAR 200 MG in NS 230 ML IV ONE (12:22)
[2024-07-21] MEDS: ACETAMINOPHEN 650MG PO PRIOR TO INFUSION PO ONE (12:22)
[2024-07-21 13:00] VITALS: BP 102/62; O2SAT 100
[2024-07-21 14:25] VITALS: BP 104/72; O2SAT 100
== END 2024-07-21 14:25 ==
LOC: M INFU 11:56
PROVIDERS: ATTEND Internal Medicine Gastroenterology
DX: K50.90 Crohn's disease, unspecified, without complications (principal); Z88.1 Allergy status to other antibiotic agents; Z88.5 Allergy status to narcotic agent; Z91.010 Allergy to peanuts; Z91.09 Other allergy status, other than to drugs and biological substances
CPT/HCPCS: 96413; 96415; Q5103

== ENCOUNTER → 2024-08-07 | Outpatient (REF) | payer OTHER ==
[~2024-08-07] MED LIST changes: -NS (Normal Saline) 0.9% 1,000 ML IV SCH
== END ==
LOC: M LAB REF 12:38
PROVIDERS: ATTEND Student in an Organized Health Care Education/Training Program
DX: R19.7 Diarrhea, unspecified (principal)

== ENCOUNTER 2024-11-10 08:42 | Outpatient (CLI) | payer OTHER ==
[~2024-11-10] VITALS: Ht 157.5 cm; Wt 46.3 kg
[~2024-11-10 08:42] MED LIST changes: +NS (Normal Saline) 0.9% 1,000 ML IV SCH
[2024-11-10 08:50] VITALS: BP 111/65; O2SAT 99
[2024-11-10] MEDS: ACETAMINOPHEN 650MG PO PRIOR TO INFUSION PO ONE (09:04)
[2024-11-10] MEDS: INFLIXIMAB BIOSIMILAR 200 MG in NS 230 ML IV ONE (09:31)
== END 2024-11-10 11:40 | disposition home or self-care (01) ==
LOC: M INFU 08:42
PROVIDERS: ATTEND Internal Medicine Gastroenterology
DX: K50.90 Crohn's disease, unspecified, without complications (principal); Z88.5 Allergy status to narcotic agent; Z88.8 Allergy status to other drugs, medicaments and biological substances
CPT/HCPCS: 96413; 96415; Q5103

== ENCOUNTER 2025-01-05 08:24 | Outpatient (CLI) | payer OTHER ==
[~2025-01-05] VITALS: Ht 157.5 cm; Wt 44.5 kg
[~2025-01-05 08:24] MED LIST changes: -NS (Normal Saline) 0.9% 1,000 ML IV SCH
[2025-01-05] MEDS ORDERED: NS (Normal Saline) 0.9% 1,000 ML IV SCH (08:30)
[2025-01-05] MEDS ORDERED: ACETAMINOPHEN 650MG PO PRIOR TO INFUSION PO ONE (08:30)
[2025-01-05 08:35] VITALS: BP 109/66; O2SAT 100
[2025-01-05] MEDS: INFLIXIMAB BIOSIMILAR 200 MG in NS 230 ML IV ONE (09:51)
== END 2025-01-05 12:00 | disposition home or self-care (01) ==
LOC: M INFU 08:24
PROVIDERS: ATTEND Internal Medicine Gastroenterology
DX: K50.90 Crohn's disease, unspecified, without complications (principal); Z88.1 Allergy status to other antibiotic agents; Z88.6 Allergy status to analgesic agent; Z88.5 Allergy status to narcotic agent; Z91.018 Allergy to other foods; Z91.010 Allergy to peanuts; Z91.09 Other allergy status, other than to drugs and biological substances
CPT/HCPCS: 96413; 96415; Q5103

== ENCOUNTER 2025-02-02 11:46 | Day surgery (SDC) | payer OTHER ==
[~2025-02-02] VITALS: Ht 157.5 cm; Wt 43.5 kg
[~2025-02-02 11:46] MED LIST changes: +KETOROLAC 30 MG/ML 1 ML VIAL As Ordered ONE; +LIDOCAINE 2% 100 MG/5 ML SDV (FOR ANES.) As Ordered ONE; +ONDA-284 PO; +ONDANSETRON 4MG/2ML VIAL As Ordered ONE; +ROCURONIUM BROMIDE 50MG/5ML VIAL As Ordered ONE; +SUGAMMADEX SODIUM 500 MG/5 ML VIAL As Ordered ONE; +THERTAB52 PO; +dexAMETHasone 4 MG/ML 1 ML VIAL As Ordered ONE
[2025-02-02] MEDS: GABAPENTIN 300 MG CAP PO ONE (11:50)
[2025-02-02] MEDS: FAMOTIDINE 20 MG/2 ML VIAL IVP ONE (11:50)
[2025-02-02 12:18] LABS: PLATELET COUNT, AUTOMATED 309 10^3/uL (150-450)
[2025-02-02] MEDS: SCOPOLAMINE 1MG TRANSDERMAL PATCH TOP ONE (12:31)
[2025-02-02] MEDS: LR 1,000 ML IV SCH (12:31)
[2025-02-02] MEDS: METHYLENE BLUE 0.5% (5 MG/ML) 10 ML AMP As Ordered ONE (14:35)
[2025-02-02] MEDS ORDERED: MIDAZOLAM INJ 2 MG/2 ML VIAL As Ordered ONE (14:35)
[2025-02-02] MEDS: ceFAZolin SOD 2 GM IV ONCE IV ONE (15:10)
[2025-02-02] MEDS ORDERED: PHENYLephrine 500MCG 5ML (100MCG/ML) SYRINGE As Ordered ONE (15:44)
[2025-02-02] MEDS ORDERED: ACETAMINOPHEN 1000MG/100ML IV BAG As Ordered ONE (15:44)
[2025-02-02] MEDS ORDERED: MORPHINE 2 MG/ML 1 ML VIAL IV PRN (15:55)
[2025-02-02] MEDS ORDERED: HYDROMORPHONE HCL 0.5 MG/0.5 ML SYRINGE IV PRN (15:55)
[2025-02-02] MEDS ORDERED: ONDA-282 PO (16:27)
[2025-02-02] MEDS ORDERED: PERC5TAB12 PO (16:28)
[2025-02-02] MEDS ORDERED: COLA100C5 PO (16:30)
[2025-02-02 17:19] VITALS: BP 110/68; TEMP 97.9; O2SAT 100
== END 2025-02-02 17:27 | disposition home or self-care (01) ==
LOC: M SDC 11:46
PROVIDERS: ATTEND Obstetrics & Gynecology
DX: R10.20 Pelvic and perineal pain unspecified side (principal); N94.6 Dysmenorrhea, unspecified; K50.90 Crohn's disease, unspecified, without complications; Z79.899 Other long term (current) drug therapy; Z88.6 Allergy status to analgesic agent; Z88.8 Allergy status to other drugs, medicaments and biological substances; Z91.010 Allergy to peanuts; J30.1 Allergic rhinitis due to pollen; Z91.018 Allergy to other foods; F17.290 Nicotine dependence, other tobacco product, uncomplicated
CPT/HCPCS: 36415; 49320; 81025; 85027; 86850; 86900; 86901; J0131; J0665; J0688; J1100; J2250; J2371; J2405; J3010

== ENCOUNTER → 2025-02-20 | Outpatient (CLI) | payer OTHER ==
[~2025-02-20] MED LIST changes: +COLA100C5 PO; +ISOVUE-370 76% 100 ML VIAL As Ordered ONE; -KETOROLAC 30 MG/ML 1 ML VIAL As Ordered ONE; -LIDOCAINE 2% 100 MG/5 ML SDV (FOR ANES.) As Ordered ONE; -ONDANSETRON 4MG/2ML VIAL As Ordered ONE; +PERC5TAB12 PO; -ROCURONIUM BROMIDE 50MG/5ML VIAL As Ordered ONE; -SUGAMMADEX SODIUM 500 MG/5 ML VIAL As Ordered ONE; -dexAMETHasone 4 MG/ML 1 ML VIAL As Ordered ONE
== END ==
LOC: M RAD 10:30
PROVIDERS: ATTEND Internal Medicine Gastroenterology
DX: K50.90 Crohn's disease, unspecified, without complications (principal); R10.20 Pelvic and perineal pain unspecified side
CPT/HCPCS: 74177; Q9967